=== PATIENT | male | born 1940 | race Caucasian/White ===

== ENCOUNTER → 2021-07-18 08:11 | Outpatient (CLI) | payer MEDICARE, SELFPAY ==
[2021-07-18 08:30] LABS: Basophils # 0.1 K/mm3 (0-0.2); Basophils % 0.9 % (0.1-2.0); Eosinophils # 0.2 K/mm3 (0.0-0.4); Eosinophils % 3.4 % (0.1-12.0); Hematocrit 30.5 % (42.0-52.0); Hemoglobin 8.9 g/dL (14.1-18.0); Lymphocytes # 1.3 K/mm3 (0.7-4.5); Lymphocytes % 19.5 % (10-50); Mean Corpuscular HGB Conc 29.3 g/dL (31.8-35.4); Mean Corpuscular Hemoglobin 30.8 pg (27.0-31.2); Mean Platelet Volume 11.5 fl (7.4-10.4); Monocytes # 0.3 K/mm3 (0.1-1.0); Monocytes % 3.9 % (1.7-9.3); Neutrophils # 4.7 K/mm3 (1.8-7.8); Neutrophils % 72.2 % (37.0-80.0); Platelet Count 401 K/mm3 (142-424); Red Blood Count 2.91 M/mm3 (4.60-6.20); Red Cell Distribution Width 20.7 % (11.5-17.5); White Blood Count 6.5 K/mm3 (4.8-10.8)
[2021-07-18 09:53] LABS: Alanine Aminotransferase 40 U/L (12-78); Albumin Level 3.9 g/dl (3.5-5.0); Albumin/Globulin Ratio 1.3 (1.1-1.8); Alkaline Phosphatase 96 U/L (38-126); Anion Gap 16.9 mEq/L (5-15); Aspartate Amino Transferase 32 U/L (17-59); Bilirubin,Total 0.4 mg/dl (0.2-1.3); Blood Urea Nitrogen 31 mg/dl (9-20); Calcium 9.2 mg/dl (8.4-10.2); Carbon Dioxide 24 mmol/L (22.0-30.0); Chloride 106 mmol/L (98-107); Estimated Glomerular Filt Rate 45 ml/min (>60); GFR (African American) 54 ML/MIN (>60); Globulin 2.9 g/dL (1.3-3.2); Glucose 126 mg/dl (74-100); Potassium 5.9 mmoL/L (3.5-5.1); Sodium 141 mmol/L (136-145); Total Protein,Serum 6.8 g/dl (6.3-8.2)
[2021-07-18 10:09] LABS: 25-OH Vitamin D, Total 37.4 ng/mL (30-100)
[2021-07-18 10:11] LABS: Free Thyroxine Index 3.7 ug/dL (5.93-13.13); T4 (Thyroxine) 9.3 ug/dl (5.53-11.0); Triiodothryronine (T3) Uptake 40 % (23.5-40.5)
[2021-07-18 10:25] LABS: Thyroid Stimulating Hormone 1.54 uIU/mL (0.465-4.68)
[2021-07-18 10:45] LABS: Vitamin B12 > 1000 pg/mL (239-931)
== END ==
PROVIDERS: Visit Provider Internal Medicine Adolescent Medicine
DX: E11.9 Type 2 diabetes mellitus without complications (principal); R63.4 Abnormal weight loss; Z79.84 Long term (current) use of oral hypoglycemic drugs
CPT/HCPCS: 80053; 82306; 82607; 83036; 84436; 84443; 84479; 85025

== ENCOUNTER → 2021-07-25 08:06 | Outpatient (CLI) | payer MEDICARE, SELFPAY ==
[2021-07-25 14:22] LABS: Basophils % 0.7 % (0.1-2.0); Eosinophils # 0.4 K/mm3 (0.0-0.4); Eosinophils % 6.5 % (0.1-12.0); Hematocrit 27.1 % (42.0-52.0); Hemoglobin 8.2 g/dL (14.1-18.0); Lymphocytes # 1.6 K/mm3 (0.7-4.5); Lymphocytes % 25.1 % (10-50); Mean Corpuscular HGB Conc 30.2 g/dL (31.8-35.4); Mean Corpuscular Hemoglobin 30.6 pg (27.0-31.2); Mean Corpuscular Volume 101.2 fl (80-94); Mean Platelet Volume 9.2 fl (7.4-10.4); Monocytes # 0.2 K/mm3 (0.1-1.0); Neutrophils % 64.7 % (37.0-80.0); Platelet Count 473 K/mm3 (142-424); Red Blood Count 2.68 M/mm3 (4.60-6.20); Red Cell Distribution Width 20.6 % (11.5-17.5); White Blood Count 6.2 K/mm3 (4.8-10.8)
[2021-07-25 14:23] LABS: Chloride 103 mmol/L (98-107)
[2021-07-25 14:24] LABS: Potassium 4.9 mmoL/L (3.5-5.1); Sodium 139 mmol/L (136-145)
[2021-07-25 14:27] LABS: Anion Gap 14.9 mEq/L (5-15); Blood Urea Nitrogen 15 mg/dl (9-20); Carbon Dioxide 26 mmol/L (22.0-30.0); Estimated Glomerular Filt Rate 81 ml/min (>60); GFR (African American) 98 ML/MIN (>60); Glucose 178 mg/dl (74-100)
[2021-07-27 08:07] LABS: Peripheral Smear Review Scanned Result
== END ==
PROVIDERS: Visit Provider Internal Medicine Adolescent Medicine
DX: N18.2 Chronic kidney disease, stage 2 (mild) (principal); D53.9 Nutritional anemia, unspecified
CPT/HCPCS: 36415; 80048; 82746; 85025

== ENCOUNTER → 2021-08-15 14:21 | Outpatient (CLI) | payer MEDICARE, SELFPAY ==
--- NOTE | 2021-08-15 14:24 | CT_ITS ---
PROCEDURE: CT CHEST WO CON Old chip CLINICAL INDICATION: WEIGHT LOSS, ABNORMAL COMPARISON: CT CT ANGIO CHEST from 08/15/[address] ABDOMEN PELVIS WO CON from 08/20/2019 TECHNIQUE: Axial images obtained with sagittal and coronal reformats. All CT scans at the facility use one or more dose reduction, viz: automated exposure control, ma/kV adjustment per patient size (including targeted exams where dose is matched to indication, i.e. head), or iterative reconstruction technique. FINDINGS: HEART AND MEDIASTINAL STRUCTURES: Coronary artery stents and or calcification noted. No mediastinal or hilar mass. There are few small mediastinal lymph nodes LUNGS AND PLEURAL SPACES: . Old granulomatous disease. Mild atelectatic or fibrotic changes in the lung bases. An 8 x 6 mm noncalcified nodule is present in the right lung base medially and posteriorly. It is difficult to due to determine if this was on the previous exam due to atelectatic change in that area. BONY STRUCTURES: No acute bony abnormalities apparent. UPPER ABDOMEN: Degenerative changes thoracic spine with endplate osteophytes at multiple levels. Old right 8th rib fracture. ADDITIONAL FINDINGS: No other significant abnormalities. IMPRESSION: 8 x 6 mm noncalcified nodular opacity right lung base posterior medially. This may only be due to an area of scarring or atelectatic change. Cannot exclude the possibility of developing nodule therefore, six-month follow-up is suggested Chronic changes in the lung bases. Dictated by: Pako Anaya MD 08/16/2021 11:57 Pako Anaya MD in [place] 08/16/2021 11:57
== END ==
PROVIDERS: PCP Internal Medicine Adolescent Medicine; Visit Provider Internal Medicine Adolescent Medicine
DX: R63.4 Abnormal weight loss (principal)
CPT/HCPCS: 71250

== ENCOUNTER 2022-05-02 11:59 | Emergency (ER) | payer MEDICARE, SELFPAY ==
[2022-05-02 13:00] VITALS: BP 114/54; PULSE 84; RESP 19; TEMP 36.6; O2SAT 97; BMI 25.8
--- NOTE | 2022-05-02 13:14 | HMH.EDUTC ---
[facility] – [place] Disposition Clinical Impression: COVID-19 Disposition: Home, Self-Care Condition on Discharge: Good Instructions: DI for COVID-19 (Suspected or Confirmed ) Additional Instructions: follow up as needed, return for worse Prescriptions: Nirmatrelvir/Ritonavir [Paxlovid 2X150 mg-100 mg (Eua)] 1 each PO BID 5 Days #30 tab Transmission Status: Received by [id number] Referrals: Santos Nassar MD [Primary Care Provider] - Medical Decision Making - Damion Inquiry Pt receiving controlled substance: No Damion was queried for this patient: No Vital Signs: 05/02/22 13:00 05/02/22 14:01 05/02/22 14:46 Temperature 97.9 F 98.7 F Temperature Source Oral Oral Pulse Rate 77 Pulse Rate [Radial] 84 74 Respiratory Rate 19 16 Blood Pressure 146/73 H Blood Pressure [Right Arm] 114/54 L 132/69 Blood Pressure Mean [Right Arm] 74 90 Blood Pressure Source Automatic Cuff Blood Pressure Source [Right Arm] Automatic Cuff Automatic Cuff Blood Pressure Position Sitting Blood Pressure Position [Right Arm] Sitting Sitting 02 Sat by Pulse Oximetry 97 95 96 Oxygen Delivery Method Room Air Room Air 05/02/22 16:26 Temperature 98.7 F Temperature Source Oral Pulse Rate 74 Pulse Rate [Radial] Respiratory Rate 17 Blood Pressure 132/71 Blood Pressure [Right Arm] Blood Pressure Mean [Right Arm] Blood Pressure Source Blood Pressure Source [Right Arm] Blood Pressure Position Blood Pressure Position [Right Arm] 02 Sat by Pulse Oximetry Oxygen Delivery Method Room Air - Lab Data Lab Results 05/02/22 13:00: SARS-CoV-2 (PCR) Detected A, Influenza A Untype (PCR) Not detected, Influenza Type B (PCR) Not detected Medical Decision Narrative: Patient was answering questions appropriately but then will look off at the wall and for several minutes then look back at staff and talk again Daughter states that this is not his normal behavior state that she hasnt felt well either and wanted him tested for COVID Called ED spoke with Patti No room available at this time will call when room available [facility] – [place] HPI - General Stated complaint: confusion, weakness Time Seen by Provider: 05/02/22 13:14 Mode of Arrival: Ambulatory Source of Information: Significant Other, Relative Description of Symptoms (Recalled from Triage Doc. by RN): COUGHING, NOT ATE FOR 2 DAYS, CONFUSED AND DISORIENTED HEENT Symptoms (Recalled from RN notes): No Resp Symptoms (Recalled from RN notes): Yes Skin Symptoms (Recalled from RN notes): No MS Symptoms (Recalled from RN notes): No Functional Status (Recalled from RN notes): N/A - History of Present Illness Provider Complaint: Patient family states that last night patient started acting confused and was pulling out drawers, fiddling with papers and not answering appropriately State that EMS came out and checked him out and he had a little fever but wouldnt go States that this morning he got up and was still not acting right and wouldnt eat and still not his normal self State sthat they asked if anything hurts and he just says he doesnt feel well Daughter states that she is concerned with stroke or something States that his left eye looks a little droopy and he isnt acting himself - Related Data Home Medications Medication Instructions Recorded Confirmed Levothyroxine Sodium 112 mcg PO DAILY 08/15/19 09/21/21 [Levothyroxine 112mcg (0.112mg) Tab] Metformin HCl [Metformin 1000mg 1,000 mg PO BID 08/15/19 09/21/21 Tablets] atorvastatin 40 mg tablet 40 mg PO DAILY 09/21/21 09/21/21 glipizide 5 mg tablet 5 mg PO DAILY 09/21/21 09/21/21 metoprolol tartrate 50 mg tablet 50 mg PO DAILY 09/21/21 09/21/21 Previous Rx's Medication Instructions Recorded Nirmatrelvir/Ritonavir [Paxlovid 1 each PO BID 5 Days #30 tab 05/02/22 2X150 mg-100 mg (Eua)] Allergies Allergy/AdvReac Type Severity Reaction Status Date / Time iodine Allergy Severe S-SWELLS-OR Verified
--- NOTE | 2022-05-02 13:15 | CT_ITS ---
FINAL REPORT TECHNIQUE: Thin section axial images were obtained from skull base to vertex without contrast. This study was performed with techniques to keep radiation doses as low as reasonably achievable (ALARA). Individualized dose reduction techniques using automated exposure control or adjustment of mA and/or kV according to the patient's size were employed. CLINICAL HISTORY: confusion, AMS COMPARISON: 08/16/2019 FINDINGS: There is global cerebral atrophy. There is no mass effect or midline shift. There is no extra-axial fluid collection. There is no intraparenchymal or intraventricular hemorrhage. There is no hydrocephalus. Periventricular low density is likely related to changes of chronic small vessel ischemia. The basilar cisterns are preserved. The posterior fossa is without acute abnormality. No air-fluid level is identified within the paranasal sinuses. The soft tissues are without acute abnormality. No acute osseous abnormality is identified. IMPRESSION: No acute intracranial abnormality. Atrophy and changes suggesting chronic small vessel ischemia. Reviewed, Interpreted and Dictated by Geovanna Barnard MD Transcribed by Ana Daniel Authenticated and . [facility]
--- NOTE | 2022-05-02 13:16 | PC.NURSE ---
notified radiology of CT head order, spoke with bart
--- NOTE | 2022-05-02 13:30 | PC.NURSE ---
PT TO CT AT THIS TIME
[2022-05-02 13:33] LABS: Influenza A, PCR Not Detected (NotDetected); Influenza B, PCR Not Detected (NotDetected)
--- NOTE | 2022-05-02 13:36 | PC.NURSE ---
pt went from [facility] to CT pt in room [address] at this time, pt ambulated to room
[2022-05-02 14:01] VITALS: BP 132/69; PULSE 74; RESP 16; TEMP 37.1; O2SAT 95; BMI 25.7
[2022-05-02 14:03] LABS: Coronavirus 19, PCR Detected (NotDetected)
--- NOTE | 2022-05-02 14:30 | HMH.EDGENADL ---
ED Disposition Clinical Impression: COVID-19 Disposition: Home, Self-Care Condition on Discharge: Good Instructions: DI for COVID-19 (Suspected or Confirmed ) Additional Instructions: follow up as needed, return for worse Prescriptions: Nirmatrelvir/Ritonavir [Paxlovid 2X150 mg-100 mg (Eua)] 1 each PO BID 5 Days #30 tab Transmission Status: Pending to [id number] Referrals: Santos Nassar MD [Primary Care Provider] - - Critical Care Critical Care Time: No Attestation: On 05/02/22, the high probability of a clinically significant, sudden or life threatening deterioration of the following system(s) required my full and direct attention, intervention and personal management. The time I documented below is in addition to time spent performing reported procedures but includes the following listed in this critical care notation. Medical Decision Making - Medical Records Medical records reviewed: Yes: I reviewed the patient's medical records. - Damion Inquiry Pt receiving controlled substance: No Vital Signs: 05/02/22 13:00 05/02/22 14:01 05/02/22 14:46 Temperature 97.9 F 98.7 F Temperature Source Oral Oral Pulse Rate 77 Pulse Rate [Radial] 84 74 Respiratory Rate 19 16 Blood Pressure 146/73 H Blood Pressure [Right Arm] 114/54 L 132/69 Blood Pressure Mean [Right Arm] 74 90 Blood Pressure Source Automatic Cuff Blood Pressure Source [Right Arm] Automatic Cuff Automatic Cuff Blood Pressure Position Sitting Blood Pressure Position [Right Arm] Sitting Sitting 02 Sat by Pulse Oximetry 97 95 96 Oxygen Delivery Method Room Air Room Air - Lab Data Lab Results 05/02/22 13:00: SARS-CoV-2 (PCR) Detected A, Influenza A Untype (PCR) Not detected, Influenza Type B (PCR) Not detected General Adult HPI - General Chief complaint: Weakness Stated complaint: confusion, weakness Time Seen by Provider: 05/02/22 14:30 Mode of Arrival: Ambulatory Limitations: No Limitations Description of Symptoms (Recalled from ER Triage Doc. by RN): Pt to Ed from [facility] for further eval r/t a period of confusion that occured last night at approx 1030pm. Pt also c/o fever, RIOJAS, cough - History of Present Illness HPI narrative: fever and confusion yesterday, says he feels better today, cov pos here Onset (ago): day(s) Consistency: now resolved Exacerbating factors: none Associated symptoms: denies other symptoms Treatments prior to arrival: none - Related Data Home Medications Medication Instructions Recorded Confirmed Levothyroxine Sodium 112 mcg PO DAILY 08/15/19 09/21/21 [Levothyroxine 112mcg (0.112mg) Tab] Metformin HCl [Metformin 1000mg 1,000 mg PO BID 08/15/19 09/21/21 Tablets] atorvastatin 40 mg tablet 40 mg PO DAILY 09/21/21 09/21/21 glipizide 5 mg tablet 5 mg PO DAILY 09/21/21 09/21/21 metoprolol tartrate 50 mg tablet 50 mg PO DAILY 09/21/21 09/21/21 Previous Rx's Medication Instructions Recorded Nirmatrelvir/Ritonavir [Paxlovid 1 each PO BID 5 Days #30 tab 05/02/22 2X150 mg-100 mg (Eua)] Allergies Allergy/AdvReac Type Severity Reaction Status Date / Time iodine Allergy Severe S-SWELLS-OR Verified 09/21/21 11:30 AL/THROAT shellfish derived Allergy Intermediate I-HIVES Verified 09/21/21 11:30 [From SHELLFISH (FOOD/DRUG)] From SHELLFISH (FOOD/DRUG) Allergy Intermediate I-HIVES Uncoded 09/23/17 15:42 [facility] History - Hepatitis A Screen Attestation statement:: This patient has been screened for Hepatitis A risk factors. Medical History: Reports:: Cancer, Diabetes Mellitus Type 2, Hyperlipidemia, Hypertension Other Medical History: Reports: Arthritis Other Surgeries: Yes: Cholecystectomy Fractures: Yes - Social History Smoking Status: Never smoker Alcohol Intake: current Alcohol Intake Frequency:: holidays/special occasions only Occupational Status: retired ROS Obtained: Yes All systems reviewed & no additional complaints Physical Exam
--- NOTE | 2022-05-02 14:39 | PC.NURSE ---
rounded on pt on this time. no needs voiced
[2022-05-02 14:46] VITALS: BP 146/73; PULSE 77; O2SAT 96
--- NOTE | 2022-05-02 14:55 | PC.NURSE ---
contacted radiology to check on status of CT reading, radiology states [facility] staff is in reading CT at this time.
--- NOTE | 2022-05-02 15:37 | PC.NURSE ---
calling radiology for CT reading eta
--- NOTE | 2022-05-02 15:48 | PC.NURSE ---
radiology sent down preliminary Ct reading
[2022-05-02 16:26] VITALS: BP 132/71; PULSE 74; RESP 17; TEMP 37.1; O2SAT 97
== END 2022-05-02 16:28 | disposition home or self-care (01) ==
LOC: UTC 12:01 → ER 13:36
PROVIDERS: Nurse Practitioner; Emergency Provider Emergency Medicine; PCP Internal Medicine Adolescent Medicine
DX: U07.1 COVID-19 (principal); Z79.84 Long term (current) use of oral hypoglycemic drugs; Z79.899 Other long term (current) drug therapy; Z88.8 Allergy status to other drugs, medicaments and biological substances; Z91.013 Allergy to seafood; E11.9 Type 2 diabetes mellitus without complications; E78.5 Hyperlipidemia, unspecified; I10 Essential (primary) hypertension; M19.90 Unspecified osteoarthritis, unspecified site; Z85.9 Personal history of malignant neoplasm, unspecified
CPT/HCPCS: 70450; 99284; C9803; U0003; U0005

== ENCOUNTER 2022-08-14 11:23 | Emergency (ER) | payer MEDICARE, SELFPAY ==
[2022-08-14 11:23] VITALS: BP 165/81; PULSE 79; RESP 18; TEMP 37; O2SAT 97; BMI 26.6
--- NOTE | 2022-08-14 11:51 | CT_ITS ---
FINAL REPORT TECHNIQUE: Axial CT images were performed through the head. Coronal reformatted images were submitted. This study was performed with techniques to keep radiation doses as low as reasonably achievable (ALARA). Individualized dose reduction techniques using automated exposure control or adjustment of mA and/or kV according to the patient's size were employed. CLINICAL HISTORY: AMS, Confusion COMPARISON: 05/02/2022 FINDINGS: There is moderate atrophy. There is proportional ventriculomegaly. There is abnormal decreased attenuation in the posterior left frontal cortex. There is no evidence of hemorrhage. There is no mass or edema identified. There is no abnormal extra-axial fluid seen. There is mild periosteal thickening in both maxillary sinuses and ethmoid air cells. IMPRESSION: No acute intracranial process. Chronic maxillary and ethmoid sinusitis. Small focus encephalomalacia in the posterior left frontal cortex appears chronic. Moderate atrophy. Reviewed, Interpreted and Dictated by Saravanan Oneill MD Transcribed by Lilibeth Oneal Authenticated and [facility]
--- NOTE | 2022-08-14 11:52 | XR_ITS ---
FINAL REPORT CLINICAL HISTORY: AMS, Confusion FINDINGS: A single view of the chest was obtained. The heart is normal in size. The mediastinum is unremarkable. There are chronic changes in the lung bases. There is no acute pulmonary abnormality. There is no pleural effusion. There is no pneumothorax. There is no acute osseous abnormality. IMPRESSION: No acute cardiopulmonary process. Reviewed, Interpreted and Dictated by Saravanan Oneill MD Transcribed by Lilibeth Oneal Authenticated and [facility]
--- NOTE | 2022-08-14 11:59 | PC.NURSE ---
notified RT of vbg order
--- NOTE | 2022-08-14 11:59 | PC.NURSE ---
urine obtained per in/out cath and sent to lab at this time.
[2022-08-14 12:00] VITALS: BP 174/82; PULSE 81; RESP 17; O2SAT 98
[2022-08-14 12:05] LABS: Influenza A, PCR Not Detected (NotDetected); Influenza B, PCR Not Detected (NotDetected)
[2022-08-14 12:05] LABS: VBG Base Excess 1.5 mmol/L (-2.4-2.3); VBG HCO3 27.4 mmol/L (23-30); VBG Oxygen Saturation 71.2 % (50-70); VBG PH 7.33 mmol/L (7.31-7.41); VBG PO2 41.9 mmol/L (28-40); VBG Total CO2 29.1 mmol/L (23-27)
[2022-08-14 12:06] VITALS: BMI 26.6
[2022-08-14 12:12] LABS: Basophils # 0.1 K/mm3 (0-0.2); Basophils % 0.7 % (0.1-2.0); Chloride 100 mmol/L (98-107); Eosinophils # 0.1 K/mm3 (0.0-0.4); Hematocrit 30.9 % (42.0-52.0); Hemoglobin 9.2 g/dL (14.1-18.0); Lymphocytes # 1.9 K/mm3 (0.7-4.5); Lymphocytes % 16.5 % (10-50); Mean Corpuscular HGB Conc 29.7 g/dL (31.8-35.4); Mean Corpuscular Hemoglobin 29.4 pg (27.0-31.2); Mean Corpuscular Volume 99.1 fl (80-94); Mean Platelet Volume 9.2 fl (7.4-10.4); Monocytes # 0.5 K/mm3 (0.1-1.0); Monocytes % 4.6 % (1.7-9.3); Neutrophils % 77.2 % (37.0-80.0); Platelet Count 444 K/mm3 (142-424); Red Blood Count 3.12 M/mm3 (4.60-6.20); Red Cell Distribution Width 24.1 % (11.5-17.5); Sodium 139 mmol/L (136-145); White Blood Count 11.7 K/mm3 (4.8-10.8)
[2022-08-14 12:13] LABS: Potassium 4.1 mmoL/L (3.5-5.1)
[2022-08-14 12:15] LABS: Alanine Aminotransferase 23 U/L (12-78); Albumin Level 4.3 g/dl (3.5-5.0); Albumin/Globulin Ratio 1.4 (1.1-1.8); Alkaline Phosphatase 92 U/L (38-126); Ammonia < 9 umol/L (9-30); Anion Gap 12.1 mEq/L (5-15); Aspartate Amino Transferase 29 U/L (17-59); Bilirubin,Total 1.3 mg/dl (0.2-1.3); Blood Urea Nitrogen 14 mg/dl (9-20); Calcium 9.7 mg/dl (8.4-10.2); Carbon Dioxide 31 mmol/L (22.0-30.0); Creatinine Clearance Estimated 63 mL/min (50-200); Estimated Glomerular Filt Rate 81 ml/min (>60); GFR (African American) 98 ML/MIN (>60); Globulin 3.1 g/dL (1.3-3.2); Glucose 188 mg/dl (74-100); Lactic Acid 1.1 mmol/L (0.7-2.1); Total Protein,Serum 7.4 g/dl (6.3-8.2)
[2022-08-14 12:15] LABS: Microscopic, Urine URINE MICROSCOPIC (MICROSCOPIC)
--- NOTE | 2022-08-14 12:18 | PC.NURSE ---
pt to CT via stretcher
--- NOTE | 2022-08-14 12:18 | HMH.EDGENADL ---
Discharge Plan Disposition Patient Disposition: Home, Self-Care Condition: Good Prescriptions Prescriptions: No Action metoprolol tartrate 50 mg tablet 50 mg PO DAILY atorvastatin 40 mg tablet 40 mg PO DAILY metformin 1,000 MG tablet 1,000 mg PO BID levothyroxine 112 MCG tablet 112 mcg PO DAILY glipizide 5 mg tablet 5 mg PO DAILY Label Comments: TAKE 1 2 (ONE HALF) TABLET BY MOUTH ONCE DAILY (TAKE WITH LARGEST MEAL) nirmatrelvir-ritonavir 1 EACH tablet 1 each PO BID 5 Days Qty: 30 0RF Referrals Follow up/Referrals: Santos Nassar MD [Primary Care Provider] - See instructions Activity Restrictions/Add. Instructions Additional Instructions/Restrictions: You were evaluated in the emergency department today. At this time, I recommend admission for further monitoring. You tested positive for COVID-19. Please follow-up with your primary care provider over the next 48 hours. Return to the emergency department for any new or worsening symptoms. Clinical Impressions Clinical Impression: Altered mental status, COVID-19 Instructions Patient Instructions: DI for Altered Mental Status, DI for COVID-19 (Suspected or Confirmed ) Discharge ED Provider: Delicia Ta General Adult HPI General Chief complaint: Altered Mental Status Stated complaint: Physician Referral, disoriented Time Seen by Provider: 08/14/22 11:30 Source of Information: Spouse History of Present Illness HPI narrative: This patient is an 81-year-old male with a history of hypothyroidism, type 2 diabetes, hypertension, and hyperlipidemia presented to the emergency department for evaluation of altered mental status. According to the patient's , this has been ongoing and worsening over the last several weeks, however last night things became acutely worse. She states that he was wandering around the house and doing things that did not make sense. Since then, he has not been able to answer questions appropriately. She denies any recent fevers, chills, cough, vomiting, changes in bowel movements, changes in urination, or other concerns. No recent trauma. Patient is confused but denies any complaints, concerns, or pain at this time. Related Data Home Medications Medication Instructions Recorded Confirmed levothyroxine 112 mcg tablet 112 mcg PO DAILY hypothyroid 08/15/19 09/21/21 metformin 1,000 mg tablet 1,000 mg PO BID Diabetes 08/15/19 09/21/21 atorvastatin 40 mg tablet 40 mg PO DAILY 09/21/21 09/21/21 glipizide 5 mg tablet 5 mg PO DAILY Diabetes 09/21/21 09/21/21 metoprolol tartrate 50 mg tablet 50 mg PO DAILY 09/21/21 09/21/21 Previous Rx's Medication Instructions Recorded nirmatrelvir 300 mg (150 mg 1 each PO BID 5 days #30 tabs 05/02/22 x2)-ritonavir 100 mg tablet,dose pack(EUA) Allergies Allergy/AdvReac Type Severity Reaction Status Date / Time iodine Allergy Severe S-SWELLS-OR Verified 09/21/21 11:30 AL/THROAT shellfish derived Allergy Intermediate I-HIVES Verified 09/21/21 11:30 [From SHELLFISH (FOOD/DRUG)] From SHELLFISH (FOOD/DRUG) Allergy Intermediate I-HIVES Uncoded 09/23/17 15:42 [facility] Social History Smoking Status: Never smoker alcohol intake: current current occupational status: retired Travel in the last 8 weeks: None ROS Obtained: Yes unobtainable due to mental status Physical Exam General General appearance: alert and in no apparent distress Head Head exam: atraumatic and normocephalic Eye Eye exam: Present normal appearance, PERRL and EOMI ENT ENT exam: Present normal exam Neck Neck exam: Present normal inspection, full ROM and trachea midline Chest Chest inspection: Present normal inspection Respiratory Respiratory exam: Present normal lung sounds bilaterally; Absent respiratory distress or wheezes Cardiovascular Cardiovascular exam: Present regular rate and normal rhythm A
[2022-08-14 12:19] LABS: Appearance,Urine CLEAR (Clear); Bilirubin,Urine Negative (Negative); Blood, Urine TRACE-I (Negative); Color,Urine YELLOW (Yellow); Glucose,Urine (UA) Negative (Negative); Ketones,Urine Negative (Negative); Leukocyte Esterase,Urine Negative (Negative); Nitrate,Urine Negative (Negative); Protein,Urine TRACE (Negative); Specific Gravity, Urine >= 1.030 (1.005-1.030)
[2022-08-14 12:29] LABS: WBC,Urine Occasional #/hpf (0-3)
[2022-08-14 12:30] VITALS: BP 164/83; PULSE 80; RESP 15; O2SAT 97
[2022-08-14 12:31] LABS: Troponin I < 0.01 ng/ml (0.00-0.034)
[2022-08-14 12:33] LABS: Coronavirus 19, PCR Detected (NotDetected)
[2022-08-14 12:54] LABS: Free T4 (Free Thyroxine) 1.01 ng/dl (0.78-2.19)
[2022-08-14 13:00] VITALS: BP 165/95; PULSE 81; RESP 20; O2SAT 99
[2022-08-14 13:01] LABS: Thyroid Stimulating Hormone 4.77 uIU/mL (0.465-4.68)
[2022-08-14 13:30] VITALS: BP 151/74; PULSE 82; RESP 16; O2SAT 96
--- NOTE | 2022-08-14 13:58 | PC.NURSE ---
LAST MENDEZ at
[2022-08-14 14:40] VITALS: BP 150/70; PULSE 80; RESP 17; TEMP 36.9; O2SAT 97
== END 2022-08-14 14:42 | disposition home or self-care (01) ==
PROVIDERS: Emergency Provider Emergency Medicine; PCP Internal Medicine Adolescent Medicine
DX: U07.1 COVID-19 (principal); R41.82 Altered mental status, unspecified; E03.9 Hypothyroidism, unspecified; E11.9 Type 2 diabetes mellitus without complications
CPT/HCPCS: 70450; 71045; 80053; 81001; 82140; 82803; 83605; 84439; 84443; 84484; 85025; 99284; C9803; U0003; U0005

== ENCOUNTER 2022-09-15 21:04 | Emergency (ER) | payer MEDICARE, SELFPAY ==
[2022-09-15 21:05] VITALS: BP 199/93; PULSE 72; RESP 16; TEMP 36.7; O2SAT 99; BMI 23.7
--- NOTE | 2022-09-15 21:10 | ECG_ITS ---
APPROVED REPORT Exam: Resting ECG HR:69 bpm ECG Measurements Heart Rate 69 AXES NV 184 P 61 QRSd 93 QRS 50 QT 408 T 91 QTc 427 Conclusion SINUS RHYTHM MODERATE ST DEPRESSION [0.05+ mV ST DEPRESSION] ABNORMAL ECG UNCONFIRMED REPORT Electronically signed by : Santos Nassar MD 09/16/2022 19:56:49
[2022-09-15 21:27] LABS: Coronavirus 19, PCR Not Detected (NotDetected); Influenza A, PCR Not Detected (NotDetected); Influenza B, PCR Not Detected (NotDetected)
[2022-09-15 21:30] VITALS: BP 199/93; PULSE 65; O2SAT 98
[2022-09-15 21:35] VITALS: BP 212/96; PULSE 74; RESP 16
--- NOTE | 2022-09-15 21:41 | XR_ITS ---
PROCEDURE INFORMATION: Exam: XR Chest Exam date and time: 09/15/2022 9:38 PM Age: 81 years old Clinical indication: Dyspnea; Additional info: Short of air TECHNIQUE: Imaging protocol: Radiologic exam of the chest. Views: 2 views. COMPARISON: CR XR CHEST PORTABLE 08/14/2022 12:36 PM FINDINGS: Lungs: No consolidation. Pleural spaces: No pneumothorax. Heart/Mediastinum: No cardiomegaly. Bones/joints: Degenerative changes of the shoulders. IMPRESSION: No acute findings.
--- NOTE | 2022-09-15 21:45 | PC.NURSE ---
Pt gone to RAD via wheelchair
--- NOTE | 2022-09-15 21:51 | PC.NURSE ---
Pt back from RAD via wheelchair
[2022-09-15 22:01] VITALS: BP 187/111; PULSE 66; O2SAT 98
--- NOTE | 2022-09-15 22:02 | PC.NURSE ---
Dr. Warner at
--- NOTE | 2022-09-15 22:05 | HMH.EDSOB ---
Discharge Plan Disposition Patient Disposition: Home, Self-Care Chief Complaint: Shortness of Breath/Dyspnea Prescriptions Prescriptions: No Action metoprolol tartrate 50 mg tablet 50 mg PO DAILY atorvastatin 40 mg tablet 40 mg PO DAILY metformin 1,000 MG tablet 1,000 mg PO BID levothyroxine 112 MCG tablet 112 mcg PO DAILY glipizide 5 mg tablet 5 mg PO DAILY Label Comments: TAKE 1 2 (ONE HALF) TABLET BY MOUTH ONCE DAILY (TAKE WITH LARGEST MEAL) gabapentin 400 mg Tablet 400 mg PO BID Referrals Follow up/Referrals: Santos Nassar MD [Primary Care Provider] - See instructions Regis Shaffer MD [Staff Physician] - See instructions Clinical Impressions Clinical Impression: CHF (congestive heart failure), Elevated troponin, Abnormal abdominal CT scan Instructions Patient Instructions: DI for Shortness of Breath, Heart Failure Discharge ED Provider: Abhinav Warner Resp/SOB HPI General Chief Complaint: Shortness of Breath/Dyspnea Stated Complaint: abd pain, diff breathing, weak Time Seen by Provider: 09/15/22 22:05 Mode of Arrival: Ambulatory Source of Information: Patient, Significant Other and Medical Record Limitations: No Limitations Description of Symptoms (Recalled from ER Triage Doc. by RN): pt arrives today c/o shortness of AIR. sudden onset aprox 1930 tonight the pt states he doesnt know whats wrong he just feels. then he will repeate that the states that he feels short of breath. History of Present Illness pt presents with sob which started today w/o fever or chills and no resp illness - no chest pain - has hx of anemia Complaint: shortness of breath Onset (ago): hour(s) Severity: moderate Consistency/Duration: intermittent Known history of: diabetes and other (thyroid dis ) Associated symptoms: denies other symptoms Treatment prior to arrival: none Related Data Home oxygen amount: none Home Medications Medication Instructions Recorded Confirmed levothyroxine 112 mcg tablet 112 mcg PO DAILY hypothyroid 08/15/19 09/16/22 metformin 1,000 mg tablet 1,000 mg PO BID Diabetes 08/15/19 09/16/22 atorvastatin 40 mg tablet 40 mg PO DAILY Hypertension 09/21/21 09/16/22 glipizide 5 mg tablet 5 mg PO DAILY Diabetes 09/21/21 09/16/22 metoprolol tartrate 50 mg tablet 50 mg PO DAILY Hypertension 09/21/21 09/16/22 gabapentin 400 mg tablet 400 mg PO BID Pain 09/16/22 09/16/22 Allergies Allergy/AdvReac Type Severity Reaction Status Date / Time iodine Allergy Severe S-SWELLS-OR Verified 09/21/21 11:30 AL/THROAT shellfish derived Allergy Intermediate I-HIVES Verified 09/21/21 11:30 [From SHELLFISH (FOOD/DRUG)] From SHELLFISH (FOOD/DRUG) Allergy Intermediate I-HIVES Uncoded 09/23/17 15:42 Well's Criteria PE Score Clinical signs/symptoms of DVT: No PE is #1 diagnosis or equally likely: Yes Heart rate is > 100: No Immobile at least 3 days, or surgery in past 4 wks: No Previously, obj. diagnosed PE or DVT: No Hemoptysis: No Malignancy w/Rx within 6mo, or palliative: No PE Score: 3 [facility] Disclaimer: The information contained in this section may have been updated after the patient was seen, as this information can be updated by other users. Social History Smoking Status: Former smoker alcohol intake: current current occupational status: retired Travel in the last 8 weeks: None ROS Obtained: Yes All systems reviewed & no additional complaints except as documented Physical Exam General General appearance: alert Head Head exam: normocephalic Eye Eye exam: Present PERRL and EOMI ENT ENT exam: Present mucous membranes moist Neck Neck exam: Absent trachea midline Respiratory Respiratory exam: Present other (bibasilar rales ); Absent respiratory distress Cardiovascular Cardiovascular exam: Present regular rate, systolic murmur and +S4 Abdominal Exam Abdominal exam: Present soft
--- NOTE | 2022-09-15 22:11 | CT_ITS ---
PROCEDURE INFORMATION: Exam: CT Abdomen And Pelvis With Contrast Exam date and time: 09/15/2022 11:48 PM Age: 81 years old Clinical indication: Abdominal tenderness; Additional info: Pain TECHNIQUE: Imaging protocol: Computed tomography of the abdomen and pelvis with contrast. 3D rendering (Not supervised by radiologist): MIP and/or 3D reconstructed images were created by the technologist. Radiation optimization: All CT scans at this facility use at least one of these dose optimization techniques: automated exposure control; mA and/or kV adjustment per patient size (includes targeted exams where dose is matched to clinical indication); or iterative reconstruction. COMPARISON: CT ABDOMEN PELVIS WO CON 08/20/2019 11:21 AM FINDINGS: Diaphragm: A small hiatal hernia is present. Liver: Normal. No mass. Gallbladder and bile ducts: The gallbladder is absent. There is no biliary ductal dilation. Pancreas: Normal. No ductal dilation. Spleen: Normal. No splenomegaly. Adrenal glands: Normal. No mass. Kidneys and ureters: There is a 16 x 24 mm cortical cyst posterior right kidney. There is a 46 x 55 mm multi septated cyst of the lower cortex left kidney with calcifications of the septations. A similar multi septated cyst was noted on the prior study measuring 3.9 x 4.7 cm at that time. Bilateral intrarenal calculi are present the largest on the left measuring 5 x 7 mm. There is no hydronephrosis. Stomach and bowel: Left colon diverticulosis is present without inflammation. There is focal narrowing of the mid transverse colon noted best on axial series 3 images 388 through 402. Additionally there is subtle stranding of the pericolonic fat in this region. There is no obstruction. Significant fecal content is present throughout the colon. Appendix: No evidence of appendicitis. Intraperitoneal space: Unremarkable. No free air. No significant fluid collection. Vasculature: There is significant calcific atherosclerotic disease. There is no abdominal aortic aneurysm. Lymph nodes: Unremarkable. No enlarged lymph nodes. Urinary bladder: Unremarkable as visualized. Reproductive: Unremarkable as visualized. Bones/joints: There is an old L2 compression deformity. Soft tissues: Unremarkable. IMPRESSION: 1. Focal narrowing of the mid transverse colon with subtle stranding of the pericolonic fat. The finding could represent focal colitis however, neoplasm is considered and further evaluation with colonoscopy is recommended. 2. Other findings as detailed. COMMENTS: Consistent with the [employer]'s Incidental Findings Committee white paper (J Am Arash Radiol 2018): Any incidental renal lesion less than 1 cm or classified as too small to characterize, or any incidental cystic renal lesion characterized as simple-appearing, is likely benign. No follow-up imaging is recommended for these lesions per consensus recommendations based on imaging criteria.
--- NOTE | 2022-09-15 22:11 | CT_ITS ---
PROCEDURE INFORMATION: Exam: CTA Chest With Contrast Exam date and time: 09/15/2022 11:48 PM Age: 81 years old Clinical indication: Dyspnea; Additional info: SOA TECHNIQUE: Imaging protocol: Computed tomographic angiography of the chest with contrast. 3D rendering (Not supervised by radiologist): MIP and/or 3D reconstructed images were created by the technologist. Radiation optimization: All CT scans at this facility use at least one of these dose optimization techniques: automated exposure control; mA and/or kV adjustment per patient size (includes targeted exams where dose is matched to clinical indication); or iterative reconstruction. Contrast material: ISOVUE; Contrast volume: 100 ml; Contrast route: INTRAVENOUS (IV); COMPARISON: CT ANGIO CHEST 08/15/2019 7:47 PM FINDINGS: Pulmonary arteries: Normal. No pulmonary emboli. Aorta: There is moderate calcific disease of the transverse arch and descending aorta. There is no aneurysm. No dissection. Lungs: There are mild atelectatic changes at the lung bases and within the lingula. Right lower lobe calcified granuloma is noted. There is a 6 mm pleural-based nodule within the left upper lobe series 5, image 63. Pleural spaces: Unremarkable. No pneumothorax. No pleural effusion. Heart: Unremarkable. No cardiomegaly. No pericardial effusion. Lymph nodes: There are calcified right hilar mediastinal lymph nodes. Bones/joints: Unremarkable. No acute fracture. Soft tissues: Unremarkable. IMPRESSION: 1. There is no pulmonary embolus. There is no acute aortic finding. 2. Bibasilar atelectasis. 3. 6 mm left upper lobe nodule. For patients at low risk (minimal or absent history of smoking and of other known risk factors), no routine follow-up is indicated. For patients at high risk (history of smoking or of other known risk factors), consider optional CT Chest at 12 months. (Reference: Evonne) REFERENCES: Devantehoannie H, et al. Guidelines for Management of Incidental Pulmonary Nodules Detected on CT Images: From the Fleischner Society 2017. Radiology. 2017;284(1):228-243.
--- NOTE | 2022-09-15 22:12 | PC.NURSE ---
RT at to obtain ABG
[2022-09-15 22:16] LABS: Microscopic, Urine URINE MICROSCOPIC (MICROSCOPIC)
[2022-09-15 22:18] LABS: Appearance,Urine CLEAR (Clear); Bilirubin,Urine Negative (Negative); Blood, Urine Negative (Negative); Color,Urine STRAW (Yellow); Glucose,Urine (UA) Negative (Negative); Ketones,Urine Negative (Negative); Leukocyte Esterase,Urine Negative (Negative); Nitrate,Urine Negative (Negative); PH,Urine 6.5 (5.0-8.5); Protein,Urine Negative (Negative); Specific Gravity, Urine 1.015 (1.005-1.030); Urobilinogen,Urine 0.2 EU/dl (0.2)
[2022-09-15 22:24] LABS: Alanine Aminotransferase 26 U/L (12-78); Albumin Level 4.4 g/dl (3.5-5.0); Albumin/Globulin Ratio 1.5 (1.1-1.8); Alkaline Phosphatase 78 U/L (38-126); Amylase 77 U/L (30-110); Anion Gap 11.1 mEq/L (5-15); Aspartate Amino Transferase 30 U/L (17-59); Bilirubin,Total 0.7 mg/dl (0.2-1.3); Blood Urea Nitrogen 24 mg/dl (9-20); Calcium 9.6 mg/dl (8.4-10.2); Carbon Dioxide 28 mmol/L (22.0-30.0); Chloride 103 mmol/L (98-107); Creatinine Clearance Estimated 51 mL/min (50-200); Estimated Glomerular Filt Rate 58 ml/min (>60); GFR (African American) 70 ML/MIN (>60); Glucose 149 mg/dl (74-100); Lipase 61 U/L (23-300); Potassium 4.1 mmoL/L (3.5-5.1); Sodium 138 mmol/L (136-145); Total Protein,Serum 7.4 g/dl (6.3-8.2)
[2022-09-15 22:25] LABS: Basophils % 0.9 % (0.1-2.0); Eosinophils # 0.1 K/mm3 (0.0-0.4); Eosinophils % 1.5 % (0.1-12.0); Hematocrit 30.7 % (42.0-52.0); Hemoglobin 9.4 g/dL (14.1-18.0); Lymphocytes # 1.4 K/mm3 (0.7-4.5); Lymphocytes % 31.1 % (10-50); Mean Corpuscular HGB Conc 30.8 g/dL (31.8-35.4); Mean Corpuscular Hemoglobin 29.9 pg (27.0-31.2); Mean Platelet Volume 9.5 fl (7.4-10.4); Monocytes # 0.3 K/mm3 (0.1-1.0); Monocytes % 6.4 % (1.7-9.3); Neutrophils # 2.7 K/mm3 (1.8-7.8); Platelet Count 291 K/mm3 (142-424); Red Blood Count 3.16 M/mm3 (4.60-6.20); Red Cell Distribution Width 21.9 % (11.5-17.5); White Blood Count 4.5 K/mm3 (4.8-10.8)
[2022-09-15 22:25] LABS: ABG Base Excess 2.9 mmol/L (-2.4-2.3); ABG Oxygen Saturation 97 % (90-100); ABG PO2 90.5 mmhg (80-100); ABG TCO2 27.1 mmhg (23-27)
[2022-09-15 22:27] LABS: Oxygen ROOM AIR %; Source L BRACHIAL
[2022-09-15 22:30] VITALS: BP 177/84; PULSE 62; O2SAT 96
[2022-09-15 22:32] LABS: Bacteria,Urine Trace /lpf; Squamous Epithelial Cell,Urine Occasional #/hpf (0-5)
[2022-09-15 22:36] LABS: NT Pro Brain Natriuretic Pep. 1260 pg/mL (0-450)
[2022-09-15 22:38] LABS: Troponin I < 0.01 ng/ml (0.00-0.034)
[2022-09-15 22:41] LABS: T4 (Thyroxine) 8.5 ug/dl (5.53-11.0)
[2022-09-15 23:32] VITALS: BP 161/83; PULSE 66; O2SAT 98
--- NOTE | 2022-09-15 23:40 | PC.NURSE ---
pt expressed concern about iodine allergy and a contrast ct. pt has had prior studys with no reaction
--- NOTE | 2022-09-15 23:41 | PC.NURSE ---
Pt gone to RAD via stretcher
--- NOTE | 2022-09-15 23:56 | PC.NURSE ---
Pt back to room via stretcher
--- NOTE | 2022-09-16 00:53 | PC.NURSE ---
second trop drawn and sent to lab
[2022-09-16 01:17] LABS: Troponin I 0.08 ng/ml (0.00-0.034)
[2022-09-16 02:08] VITALS: BP 156/84; PULSE 98; RESP 16; TEMP 36.6; O2SAT 98
== END 2022-09-16 02:08 | disposition home or self-care (01) ==
PROVIDERS: Emergency Provider Emergency Medicine; PCP Internal Medicine Adolescent Medicine
DX: R06.02 Shortness of breath (principal); R10.9 Unspecified abdominal pain; R53.1 Weakness; R94.31 Abnormal electrocardiogram [ECG] [EKG]; E87.3 Alkalosis; R79.89 Other specified abnormal findings of blood chemistry; Z20.822 Contact with and (suspected) exposure to COVID-19; I50.9 Heart failure, unspecified; I25.10 Atherosclerotic heart disease of native coronary artery without angina pectoris; E07.9 Disorder of thyroid, unspecified; E11.9 Type 2 diabetes mellitus without complications; F03.90 Unspecified dementia, unspecified severity, without behavioral disturbance, psychotic disturbance, mood disturbance, and anxiety; F17.200 Nicotine dependence, unspecified, uncomplicated; Z79.02 Long term (current) use of antithrombotics/antiplatelets; Z79.82 Long term (current) use of aspirin; Z79.84 Long term (current) use of oral hypoglycemic drugs; Z79.899 Other long term (current) drug therapy; Z88.8 Allergy status to other drugs, medicaments and biological substances; Z91.013 Allergy to seafood; Z95.5 Presence of coronary angioplasty implant and graft
CPT/HCPCS: 71046; 71275; 74176; 80053; 81001; 82150; 82803; 83690; 83880; 84436; 84443; 84484; 85025; 93005; 99285; C9803; U0003; U0005

== ENCOUNTER → 2022-09-23 10:02 | Outpatient (CLI) | payer MEDICARE, SELFPAY ==
--- NOTE | 2022-09-23 10:03 | CA_ITS ---
APPROVED REPORT EXAM: Comprehensive 2D, Doppler, and color-flow Echocardiogram Credit Reference Clerk: Casandra Candelario, RCS, RVS Ht: 5 ft 11 in Wt: 166lbs BSA: 1.95 BP: 146/73 mmHg Indications: ABN EKG, CHF, Ex-smoker, SOB 2D Dimensions Aortic Root 3.55 cm LA Volume 61.60 mL Left Atrium 3.67 cm LA Volume Index 31.391012 mL/m2 (M/F) 16-34 LVOT 2.15 cm (M/F) 1.5-2.5 M-Mode Dimensions RVDd 3.37 cm (0.9-2.6) LA Diam 3.73 cm (1.9-4.0) LVDd 5.30 cm (3.5-5.7) Ao Diam 3.67 cm (2.0-3.7) LVDs 3.72 cm (3.5-5.7) IVSd 0.93 cm (0.6-1.1) PWd 1.00 cm (0.6-1.1) EF (Teich) 56.50% EPSs 0.39 cm FS 29.80% EDV (Teich) 135.30 mL TAPSE 2.10 (<1.7) ESV (Teich) 58.90 mL LV Diastology E Decel Time 377.00 (160-240 msec) E/A Ratio 0.80 MED E' 6.50 (< 7 cm/sec) MED A' 8.90 cm/s E'/MED E' Ratio 7.57 (>14) LAT E' 6.80 (<10 cm/sec) LAT A' 10.50 cm/s E/LAT E' Ratio 7.24 (>14) Aortic Valve LVOT Max 79.00 (70-110 cm/s) LVOT VTI 20.61 cm AoV Peak Chevy. 91.00 (50-130 cm/s) AI PHT 617.00 ms AO Peak GR. 3.30 mmHg AO Mean GR. 1.70 (<5 mmHg) AO VTI 20.87 (18-25 cm) EDILMA (VTI) 3.59 (2.5-4.5 cm2) Mitral Valve MV E Max Chevy. 49.00 (40-130 cm/s) MV A Velocity 61.00 (40-130 cm/s) E/A Ratio 0.80 MV Decel. Time 377.00 (160-240 ms) MV Mean Gr. 0.80 (<2mmHg) MV PHT 110.00 ms Pulmonary Valve PV Peak Velocity 56.00 (50-150 cm/s) OR End VMAX 165.00 cm/s Tricuspid Valve TR P. Velocity 227.00 cm/s RAP Estimate 10.00 mmHg RVSP 30.50 mmHg Left Ventricle Left atrium is mildly enlarged left ventricle is normal size mild concentric left ventricular hypertrophy, estimated ejection fraction 50% with no regional wall motion abnormality, grade 1 diastolic dysfunction seen without tissue Doppler evidence of raise left atrial pressure. Right Ventricle Right atrium and right ventricle are mildly enlarged with normal contractility. Aortic Valve Aortic valve is thickened and calcified without aortic stenosis, there is mild aortic insufficiency. Mitral Valve Mitral valve is minimally thickened, there is mild mitral regurgitation. Tricuspid Valve Tricuspid valve grossly normal, there is mild tricuspid regurgitation, tricuspid regurgitation jet velocity is inadequate for calculation of the right ventricular systolic pressure. Pulmonic Valve Pulmonic valve is poorly visualized. Great Vessels Aortic root is normal size. Inferior vena cava is poorly visualized. Pericardium No significant pericardial effusion noted. Conclusion 1. Mild biatrial enlargement, normal left ventricular size, mild concentric left ventricular hypertrophy, estimated ejection fraction 50% with no regional wall motion abnormality, grade 1 diastolic dysfunction seen without tissue Doppler evidence of raise left atrial pressure. 2. Mildly enlarged right ventricle with normal contractility. 3. Mild mitral, aortic and tricuspid regurgitation. 4. No significant pericardial effusion noted. Electronically signed by : Giles Bernal MD 09/23/2022 22:02:57
== END ==
PROVIDERS: PCP Internal Medicine Adolescent Medicine; Visit Provider Physician Assistant
DX: I50.9 Heart failure, unspecified (principal); R06.00 Dyspnea, unspecified; R41.82 Altered mental status, unspecified; R77.8 Other specified abnormalities of plasma proteins; R93.5 Abnormal findings on diagnostic imaging of other abdominal regions, including retroperitoneum; R94.31 Abnormal electrocardiogram [ECG] [EKG]
CPT/HCPCS: 93306

== ENCOUNTER 2022-09-24 15:12 | Inpatient (IN) | payer MEDICARE, SELFPAY ==
[2022-09-24] VITALS (37 sets, daily range): BP systolic 43–188; BP diastolic 19–99; PULSE 64–94; RESP 12–23; TEMP 36.3–37; O2SAT 94–100; BMI 23.1
--- NOTE | 2022-09-24 | CA_ITS ---
APPROVED REPORT EXAM: Comprehensive 2D, Doppler, and color-flow Echocardiogram [employer]: Jolene Galindo RT(R) Ht: 5 ft 11 in Wt: 166lbs BSA: 1.95 BP: 74/52 mmHg Indications: hypotension post cath, SOA, heart cath today, assess for pericardial effusion M-Mode Dimensions RVDd 2.90 cm (0.9-2.6) LVDd 3.86 cm (3.5-5.7) LVDs 2.95 cm (3.5-5.7) IVSd 1.05 cm (0.6-1.1) PWd 1.10 cm (0.6-1.1) EF (Teich) 47.70% FS 23.60% EDV (Teich) 64.30 mL ESV (Teich) 33.60 mL Conclusion 1. Limited echocardiogram was obtained to evaluate for left ventricular systolic function and pericardial effusion. 2. Left ventricle is normal size overall preserved left ventricular systolic function. Estimated ejection fraction 55% with no regional wall motion abnormality. 3. There is large size circumferential pericardial effusion noted with intermittent right ventricular diastolic collapse, inferior vena cava is dilated, and this is raising the concern for presence of pericardial effusion with reduced intrapericardial pressure and tamponade physiology. Electronically signed by : Giles Bernal MD 09/24/2022 18:02:31
--- NOTE | 2022-09-24 07:37 | IR_ITS ---
APPROVED REPORT Patient Location: Outpatient PROCEDURES Left heart catheterization Left ventriculogram Selective coronary angiogram Intravascular ultrasound to the distal left main artery and LAD Intravascular lithotripsy to the proximal and mid LAD Drug-eluting stent deployment to the proximal LAD Intravascular lithotripsy to the proximal right coronary artery and mid dominant right coronary Drug-eluting stent deployment to the proximal and mid dominant right coronary artery in a contiguous manner INDICATION Coronary artery disease, Severe in-stent restenosis, Extensive calcific disease in the LAD, Indeterminate left main coronary artery disease, To determine mechanism of in-stent restenosis within the LAD, Extensive calcific disease in the right coronary artery, Recent acute non-ST elevation myocardial infarction with recurrent angina pectoris Informed consent was obtained prior to the procedure. COMPLICATIONS None Estimated Blood Loss: Less than 10 mls TECHNIQUE One percent lidocaine used to anesthetize the right anterior aspect of the wrist. The right radial artery was accessed via the Seldinger technique. A 6 Afghan sheath was placed in the right radial artery. 2.5 mg of verapamil, 800 mcg of nitroglycerin, 1mg Lidocaine and 5000 U Heparin were given through the arterial sheath. The papa catheter was also used to perform left heart catheterization, left ventriculogram and selective coronary angiogram. At the end the diagnostic angiogram therapeutic heparin was administered giving a therapeutic ACT and the guide catheter was placed in the left main artery followed by a Runthrough wire being placed distally in the LAD. Intravascular ultrasound probe was advanced which demonstrated an MLA of 2.1 mm???. There was extensive and severe calcification throughout the proximal LAD with critical disease. There was a 40% stenosis in the distal left main artery which had an MLA greater than 5.5 mm???. Following this a 3.5 x 12 mm lithotripsy shockwave balloon was advanced and 8 separate lithotripsy pulsations were delivered at 10 pulse intervals. Following this a 3 mm x 12 mm resolute [place] stent was deployed immediately proximal to the first diagonal artery at 20 ana. An additional 3.5 x 18 mm resolute Lauro stent was placed proximal to this and deployed at 20 ana. Following stenting intravascular ultrasound probe was advanced which demonstrated a severe stenosis still persisted with under deployment of the stents. A 3.5 x 12 mm noncompliant balloon was then deployed at 24 ana in the first 3 mm stent throughout its entire course and then brought back and deployed at 24 ana throughout the proximal LAD. At the end of the procedure there was wide flow down the LAD with WAYNE-3 flow being present before and after the procedure. Following this the guide catheter was placed in the right coronary artery and the run-through wire was placed distally. Primary stenting could not be performed therefore 3 mm x 12 mm balloon was used to predilate the stenosis. A 4 mm x 38 mm resolute [place] stent was placed ostially and proximally in the right coronary artery. There was significant resistance getting the stent through the proximal portion of the right coronary artery suggesting a much more severe proximal stenosis. The stent was deployed at 20 ana. An additional 4 mm x 26 mm resolute [place] stent was then placed distal to the first stent and deployed at 20 ana. At this point a 4 mm x 12 mm shockwave lithotripsy balloon was advanced to an area which was not reduced and heavily calcified. 4 pulsations were delivered at 10 pulse intervals. The balloon was brought back and deployed in the ostium also for an additional 4 pulsations at 10 pu
[2022-09-24 08:54] LABS: Basophils % 0.3 % (0.1-2.0); Eosinophils % 0.2 % (0.1-12.0); Hematocrit 29.5 % (42.0-52.0); Hemoglobin 9.4 g/dL (14.1-18.0); Lymphocytes # 0.7 K/mm3 (0.7-4.5); Lymphocytes % 15.4 % (10-50); Mean Corpuscular HGB Conc 31.9 g/dL (31.8-35.4); Mean Corpuscular Hemoglobin 30.3 pg (27.0-31.2); Mean Corpuscular Volume 95.1 fl (80-94); Mean Platelet Volume 10.4 fl (7.4-10.4); Monocytes # 0.1 K/mm3 (0.1-1.0); Monocytes % 1.6 % (1.7-9.3); Neutrophils # 3.6 K/mm3 (1.8-7.8); Neutrophils % 82.5 % (37.0-80.0); Platelet Count 313 K/mm3 (142-424); Red Cell Distribution Width 20.8 % (11.5-17.5); White Blood Count 4.3 K/mm3 (4.8-10.8)
[2022-09-24 09:02] LABS: Anion Gap 13.9 mEq/L (5-15); Blood Urea Nitrogen 23 mg/dl (9-20); Calcium 9.6 mg/dl (8.4-10.2); Carbon Dioxide 25 mmol/L (22.0-30.0); Chloride 104 mmol/L (98-107); Creatinine Clearance Estimated 50 mL/min (50-200); Estimated Glomerular Filt Rate 58 ml/min (>60); GFR (African American) 70 ML/MIN (>60); Glucose 295 mg/dl (74-100); Potassium 4.9 mmoL/L (3.5-5.1); Sodium 138 mmol/L (136-145)
[2022-09-24 14:04] LABS: CATHL Activated Clotting Time 234 SEC (74-125)
[2022-09-24 14:05] LABS: CATHL Activated Clotting Time 387 SEC (74-125)
--- NOTE | 2022-09-24 14:17 | HMH.PHACL ---
[facility] Statistical Reporting Analyst Discharge Med Agricultural Science Professor: Tory Morales has received discharge medication counseling on the following medications: MD STARTING ASPIRIN 81 MG CHEWABLE DAILY AND BRILINTA 90 MG BID. PATIENT CURRENTLY TAKING ATORVASTATIN 40 MG DAILY AND METOPROLOL TARTRATE 50 MG BID. MD NOT STARTING SHARATH/ARB AT THIS TIME.
--- NOTE | 2022-09-24 14:50 | SUR.PHASEII ---
Pt began to feel faint and have soa, notified stated to switch brilinta to plavix, and give fluids and continue to monitor.
[2022-09-24 14:54] LABS: POC Glucose,Bedside 446 (70-110)
--- NOTE | 2022-09-24 15:20 | SUR.PHASEII ---
Notified MD of pt hypotension, stated to start lin stat, called pharmacy
--- NOTE | 2022-09-24 15:34 | SUR.PHASEII ---
, Magdaleno BAR, and echo at bedside to perform pericardiocentesis
--- NOTE | 2022-09-24 15:49 | CA_ITS ---
APPROVED REPORT EXAM: Comprehensive 2D, Doppler, and color-flow Echocardiogram Oral And Maxillofacial Pathologist: Jolene Galindo RT(R) Ht: 5 ft 11 in Wt: 166lbs BSA: 1.95 BP: 121/71 mmHg Indications: images obtained during pericardiocentesis. Conclusion 1. Limited echocardiogram was performed during pericardiocentesis. 2. Successful pericardiocentesis done to remove pericardial effusion, at the end of the procedure there is trivial pericardial effusion, there is no right ventricular collapse, normal left ventricular systolic function. Electronically signed by : Giles Bernal MD 09/24/2022 18:03:57
--- NOTE | 2022-09-24 15:58 | SUR.PHASEII ---
Notified MD larry bp, stated to d/c lin
--- NOTE | 2022-09-24 16:00 | SUR.PHASEII ---
1533: step up for pericardiocentesis, pt prepped and draped 1533: time out 1534: sedation per Gadiel 1536: access and wire inserted 1538: catheter inserted per dr marshall, echo guided 1538:300cc of blood aspirated 1540: drain bag attached to tube, blood noted in bag 1545: Elizabeth RT sutured drain tube in place with 2.0 silk
--- NOTE | 2022-09-24 16:06 | EXP.ANES.CKL ---
[facility] Disclaimer: The information contained in this section may have been updated after the patient was seen, as this information can be updated by other users. Medical History Abnormal electrocardiogram [ECG] [EKG] Diabetes mellitus Dyspnea Family History (Updated 09/24/22 @ 09:45 by Mary Cotton RN) Other No significant family history Social History (Updated 09/24/22 @ 09:46 by Mary Cotton RN) Smoking Status: Former smoker alcohol intake: current substance use type: denies use current occupational status: retired Travel in the last 8 weeks: Inside the [facility] Anesthesia Checklist Patient Identification Patient Identification: Arm Band Structural Data Admitted From: Home Planned Operative Procedure/s: Pericardiocentesis Consent for Planned Operative Procedure(s) Verified: Yes Verified Documents: Surgical Consent and History and Physical NPO Status Verified Time NPO: 00:00 Additional verifications Anesthesia Reactions: No Neurological Assessment Level of Consciousness: Drowsy and Lethargic Anesthesia Plan Anesthesia Risk discussed: Yes Anesthesia Plan: Patient unable to respond/answer ASA Class: IV (E) Anesthesia Type: MAC Preoperative Comments Pre-Operative Comments: Emergent Pericardiocentesis performed by Dr. Shaffer at bedside in electrical laboratory technician
--- NOTE | 2022-09-24 16:10 | IR_ITS ---
APPROVED REPORT Patient Location: Emergent Regional Service Manager: SIVAKUMAR Gonzalez RT (R) PROCEDURES Pericardial centesis with placement of pericardial pigtail catheter into the pericardial sac INDICATION Pericardial effusion, Cardiac tamponade Informed consent was obtained prior to the procedure. TECHNIQUE Patient's abdomen and thorax was sterilely prepped and anesthesia provided propofol for conscious sedation. A large 18-gauge needle was placed in the subxiphoid process toward the left side of the chest and then inserted with negative pressure/aspiration on a syringe. Once in the pericardial space a wire was advanced into the pericardial space and the tract was dilated with a 6 Monegasque dilating sheath. Following this a 6 Monegasque pigtail catheter was advanced into the pericardial space. 300 cc of blood was removed from the pericardial space and ultrasound revealed complete resolution of the pericardial effusion. Patient's blood pressure immediately normalized. At the end of the procedure the pericardial pigtail catheter was sewn into place sterilely prepped and covered with Tegaderm patch. Patient was transferred to the medical floor for admission. IMPRESSION Successful emergent pericardiocentesis removing 300 cc of blood from the pericardial space with successful placement of pericardial pigtail catheter PLAN 1. Type and cross 2 units of blood 2. Keep pigtail catheter in place overnight 3. Repeat echocardiogram in the morning 4. If no pericardial effusion tomorrow morning the pigtail catheter will be removed and then patient will be kept an additional 24 hours for anticipated repeat echocardiogram morning to make sure there is no further accumulation. 5. Supportive care 6. Continue dual antiplatelet therapy for recent drug-eluting stents Electronically signed by : Regis Shaffer MD 09/24/2022 16:27:05
[2022-09-24 16:25] LABS: Basophils % 0.1 % (0.1-2.0); Eosinophils % 0.8 % (0.1-12.0); Hematocrit 25.5 % (42.0-52.0); Lymphocytes # 0.5 K/mm3 (0.7-4.5); Lymphocytes % 9.9 % (10-50); Mean Corpuscular HGB Conc 31.5 g/dL (31.8-35.4); Mean Corpuscular Hemoglobin 30.6 pg (27.0-31.2); Mean Corpuscular Volume 97.1 fl (80-94); Mean Platelet Volume 10.3 fl (7.4-10.4); Monocytes % 0.6 % (1.7-9.3); Neutrophils # 4.7 K/mm3 (1.8-7.8); Neutrophils % 88.5 % (37.0-80.0); Platelet Count 384 K/mm3 (142-424); Red Blood Count 2.63 M/mm3 (4.60-6.20); Red Cell Distribution Width 21.6 % (11.5-17.5); White Blood Count 5.3 K/mm3 (4.8-10.8)
[2022-09-24 16:29] LABS: Hemoglobin 8.1 g/dL (14.1-18.0); MANUAL DIFFERENTIAL MANUAL DIFFERENTIAL (MANUAL DIFF)
--- NOTE | 2022-09-24 17:10 | PC.NURSE ---
Pt arrived to the floor at this time
[2022-09-24 18:04] LABS: Chloride 103 mmol/L (98-107); Potassium 4.2 mmoL/L (3.5-5.1); Sodium 135 mmol/L (136-145)
[2022-09-24 18:05] LABS: Hemoglobin A1C 6.4 % (4.0-6.0)
[2022-09-24 18:06] LABS: Alanine Aminotransferase 153 U/L (12-78); Albumin Level 3.6 g/dl (3.5-5.0); Albumin/Globulin Ratio 1.4 (1.1-1.8); Alkaline Phosphatase 94 U/L (38-126); Anion Gap 17.2 mEq/L (5-15); Aspartate Amino Transferase 309 U/L (17-59); Bilirubin,Total 0.7 mg/dl (0.2-1.3); Blood Urea Nitrogen 21 mg/dl (9-20); Carbon Dioxide 19 mmol/L (22.0-30.0); Creatinine Clearance Estimated 46 mL/min (50-200); Estimated Glomerular Filt Rate 53 ml/min (>60); GFR (African American) 64 ML/MIN (>60); Globulin 2.6 g/dL (1.3-3.2); Total Protein,Serum 6.2 g/dl (6.3-8.2)
[2022-09-24 18:07] LABS: Calcium 8.8 mg/dl (8.4-10.2)
[2022-09-24 18:17] LABS: Glucose 605 mg/dl (74-100)
[2022-09-24 18:21] LABS: Lymphocytes % 10 % (10-50); Monocytes % 2 % (2-9); Neutrophils % 88 % (42-76); Ovalocytes 1+; Platelet Estimate Normal; Total Cells Counted 100
[2022-09-24 18:22] LABS: Tear Drop Cells 1+
--- NOTE | 2022-09-24 18:23 | PC.NURSE ---
notified Dr. Sandra of glucose 605 and pt complaint of chest pain, neck pain, and stomach. No new orders, stated he would come see pt. VS stable and patient on 2LNC at 100%. Pericardial drain bag in place, no blood clots noted.
[2022-09-24 18:34] LABS: Creatine Kinase 45 U/L (55-170)
--- NOTE | 2022-09-24 18:49 | EXP.HP ---
History of Present Illness *Admission Date: 09/24/22 *Reason for visit:: Pericardial effusion, hypotension, hyperglycemia *History of present illness: Patient is an 81-year-old male with past medical history of coronary artery disease, hypertension, type 2 diabetes, and hypothyroidism who is admitted to the medical floor status post left heart cath earlier today. Stents were placed in the proximal LAD and the right coronary artery. Patient had a pericardial effusion that was drained by Dr. Shaffer with a pigtail catheter remaining to drain any residual pericardial effusion. Patient became hypotensive during left heart cath and was given Solu-Medrol 125 IV. Blood sugars were noted to be significantly elevated and hemoglobin dropped from 9.4-8.1. Patient will be admitted to the medical floor, Dr. Shaffer has ordered 2 units of packed red blood cells for transfusion and a repeat echo tomorrow morning to assess pericardial effusion. [facility] Disclaimer: The information contained in this section may have been updated after the patient was seen, as this information can be updated by other users. Medical History (Updated 09/24/22 @ 19:09 by Bienvenido Sandra MD) Abnormal electrocardiogram [ECG] [EKG] Diabetes mellitus Dyspnea Family History (Updated 09/24/22 @ 09:45 by Mary Cotton RN) Other No significant family history Social History (Updated 09/24/22 @ 16:08 by Gadiel Goodson CRNA) Smoking Status: Former smoker alcohol intake: current substance use type: denies use current occupational status: retired Travel in the last 8 weeks: Inside the [place] Review of Systems Constitutional Constitutional: Denies body ache(s), Denies chills, Reports fatigue, Denies fever(s) and Reports lethargy Eyes Eyes: Denies change in vision ENT Ears, Nose, Mouth, and Throat: Reports abnormal hearing (Decreased hearing), Denies change in voice, Denies dizziness, Denies dysphagia and Denies throat swelling *Cardiovascular Cardiovascular: Reports chest pain, Reports chest pain at rest, Reports dyspnea, Reports dyspnea on exertion and Denies irregular heart rhythm *Respiratory Respiratory: Reports cough, Reports dyspnea and Reports dyspnea on exertion *Gastrointestinal Gastrointestinal: Denies abdominal pain, Denies change in bowel habits, Denies constipation and Denies dysphagia *Musculoskeletal Musculoskeletal: Denies abnormal gait, Denies muscle weakness and Denies myalgias *Neurologic Neurologic: Denies abnormal gait, Reports abnormal hearing (Decreased hearing), Denies behavioral changes and Denies dizziness Psychiatric Psychiatric: Denies anxiety, Denies behavioral changes and Denies depression Endocrine Endocrine: Reports fatigue Allergic/Immunologic Allergic/Immunologic: Denies throat swelling Meds Home Medications and Allergies Home Medications Medication Instructions Recorded Confirmed Type levothyroxine 112 mcg tablet 112 mcg PO DAILY hypothyroid 08/15/19 09/24/22 History metformin 1,000 mg tablet 1,000 mg PO BID Diabetes 08/15/19 09/24/22 History atorvastatin 40 mg tablet 40 mg PO DAILY Hypertension 09/21/21 09/24/22 History glipizide 5 mg tablet 5 mg PO DAILY Diabetes 09/21/21 09/24/22 History metoprolol tartrate 50 mg tablet 50 mg PO DAILY Hypertension 09/21/21 09/24/22 History gabapentin 400 mg tablet 400 mg PO BID Pain 09/16/22 09/24/22 History aspirin 81 mg tablet,delayed 81 mg PO DAILY CAD #30 tabs 09/24/22 Rx release ([place] Low Dose Aspirin) clopidogrel 75 mg tablet (Plavix) 75 mg PO DAILY #30 tabs 09/24/22 Rx New Prescriptions to Start Prescriptions: aspirin [[place] Low Dose Aspirin] Regis Shaffer clopidogrel [Plavix] Regis Shaffer Allergies Allergy/AdvReac Type Severity Reaction Status Date / Time iodine Allergy Severe S-SWELLS-OR Verified 09/16/22 13:32 AL/THROAT shellfish derived Allergy Intermediate I-HIVES Verified 09/16/22 13
[2022-09-24 19:06] LABS: Acetone, Serum (Rapid) None Detected (None Detect)
--- NOTE | 2022-09-24 21:54 | PC.NURSE ---
Notified Jax Shaffer [id number] output in pericardial drainage bag. Only 20cc out since arriving to shift. MD states to order 2 more units PRBC for a total of 4 units. Order a CBC after 2nd unit is given.
[2022-09-24 22:55] LABS: POC Glucose,Bedside 363 (70-110)
[2022-09-25] VITALS (20 sets, daily range): BP systolic 111–164; BP diastolic 58–88; PULSE 80–120; RESP 14–24; TEMP 36.3–37; O2SAT 98–100; BMI 23.2
[2022-09-25 01:10] LABS: Influenza A, PCR Not Detected (NotDetected); Influenza B, PCR Not Detected (NotDetected)
[2022-09-25 01:34] LABS: Coronavirus 19, PCR Detected (NotDetected)
[2022-09-25 06:16] LABS: Chloride 106 mmol/L (98-107)
[2022-09-25 06:17] LABS: Basophils # 0.1 K/mm3 (0-0.2); Basophils % 0.2 % (0.1-2.0); Eosinophils # 0.1 K/mm3 (0.0-0.4); Eosinophils % 0.3 % (0.1-12.0); Hematocrit 31.8 % (42.0-52.0); Lymphocytes # 1.7 K/mm3 (0.7-4.5); Mean Corpuscular HGB Conc 32.4 g/dL (31.8-35.4); Mean Corpuscular Hemoglobin 29.8 pg (27.0-31.2); Mean Corpuscular Volume 91.9 fl (80-94); Mean Platelet Volume 9.8 fl (7.4-10.4); Monocytes # 0.7 K/mm3 (0.1-1.0); Neutrophils # 21.9 K/mm3 (1.8-7.8); Neutrophils % 89.4 % (37.0-80.0); Platelet Count 338 K/mm3 (142-424); Potassium 4.1 mmoL/L (3.5-5.1); Red Blood Count 3.46 M/mm3 (4.60-6.20); Red Cell Distribution Width 20.5 % (11.5-17.5); Sodium 139 mmol/L (136-145); White Blood Count 24.5 K/mm3 (4.8-10.8)
[2022-09-25 06:19] LABS: Alanine Aminotransferase 102 U/L (12-78); Alkaline Phosphatase 75 U/L (38-126); Anion Gap 13.1 mEq/L (5-15); Aspartate Amino Transferase 102 U/L (17-59); Bilirubin,Total 1.2 mg/dl (0.2-1.3); Blood Urea Nitrogen 22 mg/dl (9-20); Carbon Dioxide 24 mmol/L (22.0-30.0); Creatinine Clearance Estimated 54 mL/min (50-200); Estimated Glomerular Filt Rate 64 ml/min (>60); GFR (African American) 77 ML/MIN (>60)
[2022-09-25 06:20] LABS: Albumin Level 3.7 g/dl (3.5-5.0); Albumin/Globulin Ratio 1.4 (1.1-1.8); Calcium 9.3 mg/dl (8.4-10.2); Globulin 2.7 g/dL (1.3-3.2); Glucose 116 mg/dl (74-100); Magnesium 1.6 mg/dl (1.6-2.3); Total Protein,Serum 6.4 g/dl (6.3-8.2)
[2022-09-25 06:28] LABS: POC Glucose,Bedside 217 (70-110)
--- NOTE | 2022-09-25 06:30 | PC.NURSE ---
Pt has been up in chair with eyes closed but continues to be very restless. Pt has been 1 on 1. Pt received 2 u PRBC during shift, tolerated well. Call light within reach. Edmund called to get update on pt this am. States he does not want to give any more blood until CBC comes back. Pt to have echo this AM.
[2022-09-25 06:35] LABS: Lactic Acid 2.9 mmol/L (0.7-2.1)
[2022-09-25 06:43] LABS: Hemoglobin 10.3 g/dL (14.1-18.0); MANUAL DIFFERENTIAL MANUAL DIFFERENTIAL (MANUAL DIFF)
[2022-09-25 07:32] LABS: POC Glucose,Bedside 152 (70-110)
[2022-09-25 07:42] LABS: Lymphocytes % 8 % (10-50); Monocytes % 1 % (2-9); Neutrophils % 91 % (42-76); Platelet Estimate Normal; RBC Morphology Normal; Total Cells Counted 100
--- NOTE | 2022-09-25 07:44 | PC.NURSE ---
At 2345, This RN entered roomand found pt taking off gown and had taken off oxygen,bp cuff. Oxygen sat 98% on RA. On assessment, pt is alert to person. Pt attempts to pull at tele/IVs/and pericardial drain and stand up out of bed. This Rn and aide attempt to get pt to lay back in bed. Pt becomes combative and aggressive. 2351 Hospitalist notified of pt status. 0.5 mg Ativan IV once ordered. 2355 Pt pulls out 1 IV and pericardial drain at this time. 2357 Edmund called to notify of pt status. Edmund orders 2 mg Haloperidol IV once. 0100 Pt continues to pull at tubing and refuses to cooperate with care. Pt is unaware of surroundings. Hospitalist notified. 4mg Haloperidol IV once administered. 0103 Blood sugar 217. Notified hospitalist- states to hold insulin at this time. 0130 Pt appears to have tremors, c/o a severe RIOJAS, and asking if he can have moonshine. When asked if pt drinks every day, pt states I like to but i havent because I havent felt good. Hospitalist notified. CIWA 24. 0146 Hospitalist orders 1mg Ativan IV once. 0200 Pt calm at this point. CIWA protocol started.
--- NOTE | 2022-09-25 08:00 | CA_ITS ---
APPROVED REPORT EXAM: Comprehensive 2D, Doppler, and color-flow Echocardiogram [employer] Worker: Jolene Galindo RT(R) Ht: 5 ft 10 in Wt: 165lbs BSA: 1.92 BP: 132/65 mmHg Indications: Limited echo to check effusion 12 hours post pericardiocentesis, patient is combative today and unable to lay still for imaging. Conclusion 1. Limited echocardiogram was obtained to evaluate for pericardial effusion. 2. Small pericardial effusion noted, there is no right ventricular diastolic collapse to suggest tamponade physiology. 3. Normal left ventricular systolic function. Electronically signed by : Giles Bernal MD 09/26/2022 06:25:24
[2022-09-25 10:08] LABS: Reflex Lactic Add Lactic Reflex
[2022-09-25 10:40] LABS: Lactic Acid Follow Up (RFLX 1) 3.9 mmol/L (0.7-2.1)
--- NOTE | 2022-09-25 10:47 | EXP.CARD.CON ---
History of Present Illness History of Present Illness Consult date: 09/25/22 Requesting physician: Bienvenido Sandra Consult reason: chest pain Chief complaint: pericardial effusion after coronary stenting Additional Medical History:: 1. Diabetes mellitus type 2 2. Anemia with recent blood transfusion, 09/2022 at the [facility] 3. Hyperlipidemia 4. History of congestive heart failure of new onset and unknown etiology, 09/2022 5. Dementia with questionable history of alcohol use 6. Recent COVID infection, August 2022 7. Coronary artery disease A. Left heart catheterization, 09/24/2022 ANGIOGRAPHIC RESULTS The left main artery Has a distal concentric calcified 40% stenosis The left anterior descending artery Is heavily calcified and has a greater than 90% stenosis in the proximal segment as confirmed by intravascular ultrasound.? There is distal 40 and 50% stenoses in the distal portion of the proximal LAD stent the remaining LAD has additional 40 to 50% calcified mid vessel stenoses The circumflex artery Nondominant and has calcified 30 and 40% stenoses The right coronary artery Is a large dominant vessel and has stents in the ostial proximal mid and distal segments.? The ostium is 40% stenosed while there is a concentric 70 to 80% mid vessel stenosis with additional 50% stenoses.? The vessel is densely calcified.? Distally there is a 50% concentric stenosis immediately proximal to a large posterior lateral and posterior descending artery The BENAVIDES ventriculogram reveals Slightly dilated with ejection fraction of 50% The left ventricular end-diastolic pressure 10 mmHg IMPRESSION Severe to critical proximal LAD disease with successful intravascular lithotripsy followed by drug-eluting stent deployment to the proximal LAD reducing critical disease to less than 10% Severe to critical dominant right coronary artery disease with successful intravascular lithotripsy followed by drug-eluting stent deployment to the ostial proximal mid and distal right coronary in a contiguous manner PLAN 1. Dual antiplatelet therapy 2. LDL less than 55 to be achieved with high intensity statin 3. Cardiac rehabilitation 4. Avoidance of tobacco products 5. Patient should be admitted overnight due to the complexity of the procedure and his advanced age.? Copious contrast was used for the procedure Electronically signed by : Regis Shaffer MD? 09/24/2022 16:38:34 B. Postprocedure large pericardial effusion requiring pericardiocentesis and placement of pericardial drain. Patient did remove the pericardial drain during confused episode overnight. Repeat echocardiogram the next morning shows small pericardial effusion persist. History of present illness: Patient is an 81-year-old male with past medical history of coronary artery disease, hypertension, type 2 diabetes, and hypothyroidism who is admitted to the medical floor status post left heart cath earlier today.? Stents were placed in the proximal LAD and the right coronary artery.? Patient had a pericardial effusion that was drained by Dr. Shaffer with a pigtail catheter remaining to drain any residual pericardial effusion.? Patient became hypotensive during left heart cath and was given Solu-Medrol 125 IV.? Blood sugars were noted to be significantly elevated and hemoglobin dropped from 9.4-8.1.? Patient will be admitted to the medical floor, Dr. Shaffer has ordered 2 units of packed red blood cells for transfusion and a repeat echo tomorrow morning to assess pericardial effusion. The above per Dr. Sandra. Patient's confusion continued overnight requiring IV Haldol and Ativan. Reports of daily alcohol use made by patient but unconfirmed with family at this time. He did receive 2 units of blood overnight with resultant hemoglobin of 10.3 this morning. Patient did test positive for COVID this morning. His AST and ALT elevations have improved but not returned to normal. [facility] Disclaimer: The inform
[2022-09-25 12:03] LABS: POC Glucose,Bedside 244 (70-110)
[2022-09-25 12:29] LABS: Reflex Lactic (2 hrs) Add Lactic Reflex
[2022-09-25 13:45] LABS: Lactic Acid Follow up (RFLX 2) 2.7 mmol/L (0.7-2.1)
[2022-09-25 17:01] LABS: POC Glucose,Bedside 200 (70-110)
--- NOTE | 2022-09-25 17:19 | PC.NURSE ---
Per Dr. Lalo Shaffer, do not give patient anymore ativan or any sedating medications. Dr. Sandra notified. Dr. Sandra notified that patient less agitated if not stimulated. Need for sitter re-evaluated. See order
--- NOTE | 2022-09-25 17:36 | EXP.PN ---
Subjective *Date: 09/25/22 *Time: 17:36 Interval history: Patient agitated and confused overnight. He pulled out his pigtail catheter that was draining a pericardial effusion. This morning patient is sedated, seems somewhat agitated, breathing fine on his own, but not really answering any questions. Exam Data for Last 24 hours Vital signs and Labs for Last 24 Hours: Temp Pulse Resp BP Pulse Ox 97.8 F 106 H 19 142/73 H 100 09/25/22 15:35 09/25/22 16:00 09/25/22 15:35 09/25/22 15:35 09/25/22 15:35 Laboratory Results - last 24 hr 09/24/22 15:57: Blood Type A Positive, Antibody Screen Negative, Crossmatch ([facility]) See Detail 09/24/22 15:57: Total Counted 100, Neutrophils % (Manual) 88 H, Lymphocytes % (Manual) 10, Monocytes % (Manual) 2, Platelet Estimate Normal, RBC Morphology Not Reportable, Tear Drop Cells 1+, Ovalocytes 1+ 09/24/22 17:36: Sodium 135 L, Potassium 4.2, Chloride 103, Carbon Dioxide 19 L, Anion Gap 17.2 H, BUN 21 H, Creatinine 1.30 H, Estimated Creat Clear 46, Estimated GFR 53 L, Est GFR ( Amer) 64, Glucose 605 H* D, Calcium 8.8, Total Bilirubin 0.7, AST 309 H*, ALT 153 H, Alkaline Phosphatase 94, Total Protein 6.2 L, Albumin 3.6, Globulin 2.6, Albumin/Globulin Ratio 1.4 09/24/22 17:36: Hemoglobin A1c 6.4 H 09/24/22 17:36: Blood Type Confirm A Positive 09/24/22 17:36: Total Creatine Kinase 45 L 09/24/22 17:36: Acetone Level None detected 09/24/22 22:27: POC Glucose 363 H* 09/25/22 00:46: POC Glucose 217 H 09/25/22 01:00: SARS-CoV-2 (PCR) Detected A, Influenza A Untype (PCR) Not detected, Influenza Type B (PCR) Not detected 09/25/22 05:40: Sodium 139, Potassium 4.1, Chloride 106, Carbon Dioxide 24, Anion Gap 13.1, BUN 22 H, Creatinine 1.10, Estimated Creat Clear 54, Estimated GFR 64, Est GFR ( Amer) 77 D, Glucose 116 H D, Calcium 9.3, Magnesium 1.6, Total Bilirubin 1.2, AST 102 H D, ALT 102 H D, Alkaline Phosphatase 75, Total Protein 6.4, Albumin 3.7, Globulin 2.7, Albumin/Globulin Ratio 1.4 09/25/22 05:40: Lactate 2.9 H 09/25/22 05:40: WBC 24.5 H* D, RBC 3.46 L D, Hgb 10.3 L D, Hct 31.8 L, MCV 91.9, MCH 29.8, MCHC 32.4, RDW 20.5 H, Plt Count 338, MPV 9.8, Neut % (Auto) 89.4 H, Lymph % (Auto) 7.0 L, [place] % (Auto) 3.0, Eos % (Auto) 0.3, Baso % (Auto) 0.2, Neut # (Auto) 21.9 H, Lymph # (Auto) 1.7, [place] # (Auto) 0.7, Eos # (Auto) 0.1, Baso # (Auto) 0.1, Total Counted 100, Neutrophils % (Manual) 91 H, Lymphocytes % (Manual) 8 L, Monocytes % (Manual) 1 L, Platelet Estimate Normal, RBC Morphology Normal 09/25/22 06:16: POC Glucose 152 H 09/25/22 10:20: Lactate 3.9 H 09/25/22 11:54: POC Glucose 244 H 09/25/22 13:25: Lactate 2.7 H 09/25/22 16:52: POC Glucose 200 H I & O for Last 24 hours: Intake & Output 09/22/22 09/23/22 09/24/22 09/25/22 23:59 23:59 23:59 23:59 Intake Total 250 / 250 250 / 250 Output Total 740 / 740 220 / 220 Balance -490 / -490 30 / 30 Weight 75.296 kg 75.296 kg Constitutional Constitutional: no acute distress, average body habitus, agitated and somnolent *Routine HEENT Exam Head: Present normocephalic and atraumatic Eye: Present EOMI and PERRL ENT: Present mucous membranes moist *Routine Neck Exam Neck: Present supple and full ROM *Routine Respiratory Exam Respiratory: Present decreased breath sounds, CTA bilaterally, prolonged expiratory phase and normal respiratory effort; Absent rhonchi or wheezes *Routine Cardiovascular Exam Cardiovascular: Present RRR and tachycardia; Absent murmur, gallop or rubs *Routine Abdominal Exam Abdominal: Present soft; Absent tenderness, distended, rebound or guarding *Routine Extremities Exam Extremities: Present normal capillary refill; Absent cyanosis, clubbing or edema *Routine Neurological Exam Comments: Patient was agitated overnight, he is currently sedated and sleeping, although still somewhat agitated appearing even while sleeping. Routine Psychiatric Exam Psychiatric: Present agitated and unable to assess Assessment and Plan *As
--- NOTE | 2022-09-25 18:23 | PC.NURSE ---
Patient will not follow commands or answer any questions during shift. Patient mainly agitated when stimulated. VS stable except for heart rate. Patient would be between 105-122. Metoprolol ordered but patient would not take po medications. Metoprolol 5mg iv given per verbal order from STANLEY Taylor. Heart cath site clean dry and intact, pericardial drain site clean dry and intact.
[2022-09-25 18:51] LABS: POC Glucose,Bedside 241 (70-110)
--- NOTE | 2022-09-25 22:07 | PC.NURSE ---
2100 PO MEDS HELD DUE TO PT BEING TOO LETHARGIC TO SWALLOW. ADRIANE MARCIAL NP MADE AWARE.
[2022-09-26] VITALS (8 sets, daily range): BP systolic 157–173; BP diastolic 77–95; PULSE 106–124; RESP 17–22; TEMP 36.4–37.2; O2SAT 93–98; BMI 23.3; BMI 23.1
--- NOTE | 2022-09-26 | XR_ITS ---
PROCEDURE INFORMATION: Exam: XR Chest Exam date and time: 09/26/2022 12:20 AM Age: 81 years old Clinical indication: Condition or disease; Lung condition and disease; Hypoxia TECHNIQUE: Imaging protocol: Radiologic exam of the chest. Views: 1 view. COMPARISON: CR XR CHEST 2V 09/15/2022 9:38 PM FINDINGS: Lungs: Lung bases there is atelectasis. Low lung volumes. No consolidation. Pleural spaces: Unremarkable. No pleural effusion. No pneumothorax. Heart/Mediastinum: Unremarkable. No cardiomegaly. Bones/joints: Unremarkable. IMPRESSION: No acute findings.
[2022-09-26 00:13] LABS: Basophils # 0.1 K/mm3 (0-0.2); Basophils % 0.4 % (0.1-2.0); Eosinophils # 0.3 K/mm3 (0.0-0.4); Eosinophils % 1.6 % (0.1-12.0); Hematocrit 34.1 % (42.0-52.0); Hemoglobin 10.9 g/dL (14.1-18.0); Lymphocytes # 2.3 K/mm3 (0.7-4.5); Lymphocytes % 11.1 % (10-50); Mean Corpuscular HGB Conc 31.9 g/dL (31.8-35.4); Mean Corpuscular Hemoglobin 29.7 pg (27.0-31.2); Mean Corpuscular Volume 92.9 fl (80-94); Mean Platelet Volume 10.1 fl (7.4-10.4); Monocytes # 0.7 K/mm3 (0.1-1.0); Monocytes % 3.5 % (1.7-9.3); Neutrophils # 17.1 K/mm3 (1.8-7.8); Neutrophils % 83.3 % (37.0-80.0); Platelet Count 407 K/mm3 (142-424); Red Blood Count 3.68 M/mm3 (4.60-6.20); Red Cell Distribution Width 21.1 % (11.5-17.5); White Blood Count 20.5 K/mm3 (4.8-10.8)
[2022-09-26 00:20] LABS: MANUAL DIFFERENTIAL MANUAL DIFFERENTIAL (MANUAL DIFF)
[2022-09-26 00:26] LABS: Alanine Aminotransferase 156 U/L (12-78); Albumin Level 3.7 g/dl (3.5-5.0); Albumin/Globulin Ratio 1.4 (1.1-1.8); Alkaline Phosphatase 165 U/L (38-126); Anion Gap 13.8 mEq/L (5-15); Aspartate Amino Transferase 121 U/L (17-59); Bilirubin,Total 1.5 mg/dl (0.2-1.3); Blood Urea Nitrogen 31 mg/dl (9-20); Calcium 9.3 mg/dl (8.4-10.2); Carbon Dioxide 23 mmol/L (22.0-30.0); Chloride 106 mmol/L (98-107); Creatinine Clearance Estimated 37 mL/min (50-200); Estimated Glomerular Filt Rate 41 ml/min (>60); GFR (African American) 50 ML/MIN (>60); Globulin 2.7 g/dL (1.3-3.2); Glucose 164 mg/dl (74-100); Potassium 4.8 mmoL/L (3.5-5.1); Sodium 138 mmol/L (136-145); Total Protein,Serum 6.4 g/dl (6.3-8.2)
[2022-09-26 01:07] LABS: Lymphocytes % 14 % (10-50); Monocytes % 3 % (2-9); Neutrophils % 83 % (42-76); Total Cells Counted 100
[2022-09-26 01:09] LABS: Ovalocytes 1+; Platelet Estimate Normal
[2022-09-26 01:21] LABS: POC Glucose,Bedside 152 (70-110)
[2022-09-26 01:21] LABS: POC Glucose,Bedside 173 (70-110)
[2022-09-26 05:27] LABS: POC Glucose,Bedside 97 (70-110)
--- NOTE | 2022-09-26 05:36 | PC.NURSE ---
NO ACUTE CHANGES SINCE PREVIOUS ASSESSMENT. PT HAS NOT RESTED MUCH THIS SHIFT. REMAINS CONFUSED AND LETHARGIC. BP AND HEART RATE HAVE REMAINED HIGH THIS SHIFT. ADRIANE MARCIAL DIP STAND LOADER HAS ORDERED METOPROLOL IV X2 THIS SHIFT. BED ALARM AND MITTENS IN PLACE FOR PT SAFETY. LUNG SOUNDS REMAIN DIMINISHED. TOLERATING ROOM AIR WELL.
--- NOTE | 2022-09-26 10:28 | EXP.CARD.PN ---
Subjective Subjective Date: 09/26/22 Time: 10:28 Principal diagnosis: CAD, confusion Interval history: 81-year-old white male in bed. Patient is still confused but does acknowledge me when trying to talk to him. He is still unable to answer any questions at this time. Patient did pull his IV out this morning. He is not taking any medications orally at this time. Chest x-ray today shows no acute process Exam Data for Last 24 hours Vital signs and Labs for Last 24 Hours: Temp Pulse Resp BP Pulse Ox 97.7 F 109 H 18 160/95 H 95 09/26/22 08:00 09/26/22 08:00 09/26/22 08:00 09/26/22 08:00 09/26/22 08:00 Laboratory Results - last 24 hr 09/25/22 10:20: Lactate 3.9 H 09/25/22 11:54: POC Glucose 244 H 09/25/22 13:25: Lactate 2.7 H 09/25/22 16:52: POC Glucose 200 H 09/25/22 18:41: POC Glucose 241 H 09/25/22 21:00: POC Glucose 173 H 09/26/22 00:00: WBC 20.5 H*, RBC 3.68 L, Hgb 10.9 L, Hct 34.1 L, MCV 92.9, MCH 29.7, MCHC 31.9, RDW 21.1 H, Plt Count 407, MPV 10.1, Neut % (Auto) 83.3 H, Lymph % (Auto) 11.1, [place] % (Auto) 3.5, Eos % (Auto) 1.6, Baso % (Auto) 0.4, Neut # (Auto) 17.1 H, Lymph # (Auto) 2.3, [place] # (Auto) 0.7, Eos # (Auto) 0.3, Baso # (Auto) 0.1, Total Counted 100, Neutrophils % (Manual) 83 H, Lymphocytes % (Manual) 14, Monocytes % (Manual) 3, Platelet Estimate Normal, Ovalocytes 1+ 09/26/22 00:00: Sodium 138, Potassium 4.8, Chloride 106, Carbon Dioxide 23, Anion Gap 13.8, BUN 31 H D, Creatinine 1.60 H D, Estimated Creat Clear 37, Estimated GFR 41 L, Est GFR ( Amer) 50 L D, Glucose 164 H D, Calcium 9.3, Total Bilirubin 1.5 H, AST 121 H, ALT 156 H D, Alkaline Phosphatase 165 H, Total Protein 6.4, Albumin 3.7, Globulin 2.7, Albumin/Globulin Ratio 1.4 09/26/22 01:08: POC Glucose 152 H 09/26/22 05:15: POC Glucose 97 I & O for Last 24 hours: Intake & Output 09/23/22 09/24/22 09/25/22 09/26/22 11:59 11:59 11:59 11:59 Intake Total 500 / 500 1600 / 1600 Output Total 960 / 960 0 / 0 Balance -460 / -460 1600 / 1600 Weight 166 lb 165 lb 15.988 oz 166 lb 4 oz Constitutional Constitutional: no acute distress *Routine Respiratory Exam Respiratory: Present diminished air movement *Routine Cardiovascular Exam Cardiovascular: Present RRR and tachycardia *Routine Extremities Exam Extremities: Present extremity cold to touch; Absent edema Progress Note: A&P Assessment and plan (1) Altered mental status: Status: Acute (2) Anemia: Status: Acute (3) CHF (congestive heart failure): Status: Acute (4) DM type 2 (diabetes mellitus, type 2): Status: Acute (5) Elevated liver enzymes: Status: Acute (6) Pericardial effusion after operative procedure: Status: Acute (7) COVID-19: Status: Acute Assessment and Plan Assessment and Plan for All Diagnoses:: 1.? CAD with coronary stenting to LAD and RCA.? Continue dual antiplatelet therapy with aspirin and Plavix (rectally if not taking oral). Normal LV function by echo. 2.? Pericardial effusion post procedure, status post pericardiocentesis with significant improvement in pericardial effusion.? Patient removed pericardial drain during confusion.? Continue to monitor with as needed limited echo and hemoglobin/hematocrit.? He did receive 2 units of blood this admission. 3.? Dementia with agitation which complicates all aspects of his care 4.? Diabetes mellitus, per hospitalist 5.? Elevated LFTs, improved 6.? Hypertension with tachycardia, will start metoprolol tartrate 25 mg twice daily when taking oral. 7. Anemia, stable 8. 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 Continue to allow sedation to wear off. Family at bedside assisting to calm/reorient. Will get limited echo to reassess pericardial effusion if patient will allow. Still not taking oral meds so will give ASA and plavix rectally.
--- NOTE | 2022-09-26 10:36 | PC.NURSE ---
Per sukumar Taylor Dr. stated to leave iv out since patient had pulled his iv out.
[2022-09-26 11:20] LABS: Chloride 109 mmol/L (98-107); Sodium 141 mmol/L (136-145)
[2022-09-26 11:23] LABS: Alanine Aminotransferase 150 U/L (12-78); Albumin Level 3.5 g/dl (3.5-5.0); Albumin/Globulin Ratio 1.3 (1.1-1.8); Alkaline Phosphatase 149 U/L (38-126); Aspartate Amino Transferase 125 U/L (17-59); Basophils # 0.1 K/mm3 (0-0.2); Basophils % 0.3 % (0.1-2.0); Bilirubin,Total 1.6 mg/dl (0.2-1.3); Blood Urea Nitrogen 30 mg/dl (9-20); Calcium 9.1 mg/dl (8.4-10.2); Carbon Dioxide 24 mmol/L (22.0-30.0); Creatinine Clearance Estimated 43 mL/min (50-200); Eosinophils # 0.1 K/mm3 (0.0-0.4); Eosinophils % 0.3 % (0.1-12.0); Estimated Glomerular Filt Rate 48 ml/min (>60); GFR (African American) 59 ML/MIN (>60); Globulin 2.8 g/dL (1.3-3.2); Glucose 68 mg/dl (74-100); Hematocrit 31.7 % (42.0-52.0); Hemoglobin 10.5 g/dL (14.1-18.0); Lactic Acid 1.5 mmol/L (0.7-2.1); Lymphocytes # 1.6 K/mm3 (0.7-4.5); Lymphocytes % 8.9 % (10-50); Mean Corpuscular Hemoglobin 30.3 pg (27.0-31.2); Mean Corpuscular Volume 91.8 fl (80-94); Mean Platelet Volume 9.9 fl (7.4-10.4); Monocytes # 0.7 K/mm3 (0.1-1.0); Monocytes % 3.9 % (1.7-9.3); Neutrophils # 15.8 K/mm3 (1.8-7.8); Neutrophils % 86.6 % (37.0-80.0); Platelet Count 388 K/mm3 (142-424); Red Blood Count 3.45 M/mm3 (4.60-6.20); Red Cell Distribution Width 20.8 % (11.5-17.5); Total Protein,Serum 6.3 g/dl (6.3-8.2); White Blood Count 18.2 K/mm3 (4.8-10.8)
[2022-09-26 11:24] LABS: MANUAL DIFFERENTIAL MANUAL DIFFERENTIAL (MANUAL DIFF)
[2022-09-26 12:24] LABS: POC Glucose,Bedside 69 (70-110)
[2022-09-26 12:59] LABS: Lymphocytes % 12 % (10-50); Monocytes % 4 % (2-9); Neutrophils % 84 % (42-76); Total Cells Counted 100
[2022-09-26 13:00] LABS: Platelet Estimate Normal; RBC Morphology Normal
--- NOTE | 2022-09-26 13:30 | PC.NURSE ---
STANLEY Taylor and Dr. Lalo Shaffer notified that patient's glucose was 69, will recheck and if sugar is still low ok to obtain iv for glucose administration if needed
--- NOTE | 2022-09-26 13:47 | CA_ITS ---
APPROVED REPORT EXAM: Comprehensive 2D, Doppler, and color-flow Echocardiogram Jumpbasting Facing Baster: Lucretia Mac CRT Ht: 5 ft 10 in Wt: 165lbs BSA: 1.92 BP: 173/85 mmHg Indications: evaluate pericardial effusion, uncooperative. Conclusion 1. Limited echocardiogram was obtained. 2. Small to moderate sized pericardial effusion without obvious right ventricular diastolic collapse. 3. Normal left ventricular systolic function. Electronically signed by : Giles Bernal MD 09/27/2022 19:02:52
--- NOTE | 2022-09-26 17:29 | EXP.PN ---
Subjective *Date: 09/26/22 *Time: 17:29 Interval history: Patient remains confused and somewhat agitated. Exam Data for Last 24 hours Vital signs and Labs for Last 24 Hours: Temp Pulse Resp BP Pulse Ox 98.8 F 111 H 17 157/77 H 93 L 09/26/22 15:22 09/26/22 15:22 09/26/22 15:22 09/26/22 15:22 09/26/22 15:22 Laboratory Results - last 24 hr 09/25/22 18:41: POC Glucose 241 H 09/25/22 21:00: POC Glucose 173 H 09/26/22 00:00: WBC 20.5 H*, RBC 3.68 L, Hgb 10.9 L, Hct 34.1 L, MCV 92.9, MCH 29.7, MCHC 31.9, RDW 21.1 H, Plt Count 407, MPV 10.1, Neut % (Auto) 83.3 H, Lymph % (Auto) 11.1, [place] % (Auto) 3.5, Eos % (Auto) 1.6, Baso % (Auto) 0.4, Neut # (Auto) 17.1 H, Lymph # (Auto) 2.3, [place] # (Auto) 0.7, Eos # (Auto) 0.3, Baso # (Auto) 0.1, Total Counted 100, Neutrophils % (Manual) 83 H, Lymphocytes % (Manual) 14, Monocytes % (Manual) 3, Platelet Estimate Normal, Ovalocytes 1+ 09/26/22 00:00: Sodium 138, Potassium 4.8, Chloride 106, Carbon Dioxide 23, Anion Gap 13.8, BUN 31 H D, Creatinine 1.60 H D, Estimated Creat Clear 37, Estimated GFR 41 L, Est GFR ( Amer) 50 L D, Glucose 164 H D, Calcium 9.3, Total Bilirubin 1.5 H, AST 121 H, ALT 156 H D, Alkaline Phosphatase 165 H, Total Protein 6.4, Albumin 3.7, Globulin 2.7, Albumin/Globulin Ratio 1.4 09/26/22 01:08: POC Glucose 152 H 09/26/22 05:15: POC Glucose 97 09/26/22 11:00: Lactate 1.5 09/26/22 11:00: WBC 18.2 H, RBC 3.45 L, Hgb 10.5 L, Hct 31.7 L, MCV 91.8, MCH 30.3, MCHC 33.0, RDW 20.8 H, Plt Count 388, MPV 9.9, Neut % (Auto) 86.6 H, Lymph % (Auto) 8.9 L, [place] % (Auto) 3.9, Eos % (Auto) 0.3, Baso % (Auto) 0.3, Neut # (Auto) 15.8 H, Lymph # (Auto) 1.6, [place] # (Auto) 0.7, Eos # (Auto) 0.1, Baso # (Auto) 0.1, Total Counted 100, Neutrophils % (Manual) 84 H, Lymphocytes % (Manual) 12, Monocytes % (Manual) 4, Platelet Estimate Normal, RBC Morphology Normal 09/26/22 11:00: Sodium 141, Potassium 4.0, Chloride 109 H, Carbon Dioxide 24, Anion Gap 12.0, BUN 30 H, Creatinine 1.40 H, Estimated Creat Clear 43, Estimated GFR 48 L, Est GFR ( Amer) 59, Glucose 68 L D, Calcium 9.1, Total Bilirubin 1.6 H, AST 125 H, ALT 150 H, Alkaline Phosphatase 149 H, Total Protein 6.3, Albumin 3.5, Globulin 2.8, Albumin/Globulin Ratio 1.3 09/26/22 12:09: POC Glucose 69 L I & O for Last 24 hours: Intake & Output 09/23/22 09/24/22 09/25/22 09/26/22 23:59 23:59 23:59 23:59 Intake Total 250 / 250 250 / 250 1600 / 1600 Output Total 740 / 740 220 / 220 0 / 0 Balance -490 / -490 1600 / 1600 Weight 75.296 kg 75.296 kg 75 kg Constitutional Constitutional: moderate distress (From confusion and agitation), average body habitus, agitated and somnolent *Routine HEENT Exam Head: Present normocephalic and atraumatic Eye: Present EOMI and PERRL ENT: Present mucous membranes moist *Routine Neck Exam Neck: Present supple and full ROM *Routine Respiratory Exam Respiratory: Present decreased breath sounds, CTA bilaterally and normal respiratory effort; Absent rhonchi or wheezes *Routine Cardiovascular Exam Cardiovascular: Present tachycardia; Absent murmur, gallop or rubs *Routine Abdominal Exam Abdominal: Present soft; Absent tenderness, distended, rebound or guarding *Routine Extremities Exam Extremities: Present normal capillary refill; Absent cyanosis, clubbing or edema *Routine Neurological Exam Comments: Patient remains groggy and somewhat agitated appearing Routine Psychiatric Exam Psychiatric: Present agitated and unable to assess Assessment and Plan *Assessment and plan (1) Anemia: Status: Acute Qualifiers: Anemia type: unspecified type Qualified Code(s): D64.9 - Anemia, unspecified Category: Medical Code(s): D64.9 - Anemia, unspecified (2) CHF (congestive heart failure): Status: Acute Category: Medical Code(s): I50.9 - Heart failure, unspecified (3) DM type 2 (diabetes mellitus, type 2): Status: Acute Category: Medical
[2022-09-26 17:58] LABS: POC Glucose,Bedside 61 (70-110)
--- NOTE | 2022-09-26 19:59 | PC.NURSE ---
FSBG OF 63 and orders to be placed by Margie BABIN.
[2022-09-26 20:12] LABS: POC Glucose,Bedside 63 (70-110)
[2022-09-26 20:34] LABS: POC Glucose,Bedside 167 (70-110)
--- NOTE | 2022-09-26 22:27 | PC.NURSE ---
UNABLE TO GET BLOOD PRESSURE AT THIS TIME PATIENT COMBATIVE . RN AWARE .
[2022-09-26 23:33] LABS: POC Glucose,Bedside 111 (70-110)
[2022-09-27] VITALS: BP 169/79; PULSE 110; PULSE 99; RESP 18; TEMP 36.5; O2SAT 99
[2022-09-27 04:00] VITALS: BP 140/69; PULSE 107; RESP 22; TEMP 36.4; O2SAT 89; BMI 22.8
--- NOTE | 2022-09-27 04:15 | PC.NURSE ---
Pt. agitated and HR up to 139. Metoprolol given per order and Margie BABIN aware.
--- NOTE | 2022-09-27 04:47 | PC.NURSE ---
Charge nurse aware of pt. being restless and it being difficult to get an accurate telemetry strip. We will wait for his agitation to calm and get another reading.
--- NOTE | 2022-09-27 05:07 | PC.NURSE ---
Attempted to apply oxygen 2L NC and pt will not allow.
--- NOTE | 2022-09-27 05:39 | PC.NURSE ---
Margie BABIN aware of fsbg of 60 and she will be writing orders.
[2022-09-27 05:47] LABS: POC Glucose,Bedside 60 (70-110)
--- NOTE | 2022-09-27 06:26 | PC.NURSE ---
Pt. is still agitated and will not allow laboratory monitor to stay in place. He also has been pulling off his mittens.
[2022-09-27 06:30] LABS: POC Glucose,Bedside 160 (70-110)
[2022-09-27 08:00] VITALS: BP 140/81; PULSE 123; RESP 24; TEMP 36.1
--- NOTE | 2022-09-27 09:25 | EXP.CARD.PN ---
Subjective Subjective Date: 09/27/22 Time: 09:25 Principal diagnosis: CAD, confusion Interval history: 81 yo WM in bed in NAD but fidgeting and restless. Doesn't respond to questions. Exam Data for Last 24 hours Vital signs and Labs for Last 24 Hours: Temp Pulse Resp BP Pulse Ox 97.5 F L 107 H 22 140/69 89 L 09/27/22 04:00 09/27/22 04:00 09/27/22 04:00 09/27/22 04:00 09/27/22 04:00 Laboratory Results - last 24 hr 09/26/22 11:00: Lactate 1.5 09/26/22 11:00: WBC 18.2 H, RBC 3.45 L, Hgb 10.5 L, Hct 31.7 L, MCV 91.8, MCH 30.3, MCHC 33.0, RDW 20.8 H, Plt Count 388, MPV 9.9, Neut % (Auto) 86.6 H, Lymph % (Auto) 8.9 L, [place] % (Auto) 3.9, Eos % (Auto) 0.3, Baso % (Auto) 0.3, Neut # (Auto) 15.8 H, Lymph # (Auto) 1.6, [place] # (Auto) 0.7, Eos # (Auto) 0.1, Baso # (Auto) 0.1, Total Counted 100, Neutrophils % (Manual) 84 H, Lymphocytes % (Manual) 12, Monocytes % (Manual) 4, Platelet Estimate Normal, RBC Morphology Normal 09/26/22 11:00: Sodium 141, Potassium 4.0, Chloride 109 H, Carbon Dioxide 24, Anion Gap 12.0, BUN 30 H, Creatinine 1.40 H, Estimated Creat Clear 43, Estimated GFR 48 L, Est GFR ( Amer) 59, Glucose 68 L D, Calcium 9.1, Total Bilirubin 1.6 H, AST 125 H, ALT 150 H, Alkaline Phosphatase 149 H, Total Protein 6.3, Albumin 3.5, Globulin 2.8, Albumin/Globulin Ratio 1.3 09/26/22 12:09: POC Glucose 69 L 09/26/22 17:49: POC Glucose 61 L 09/26/22 19:57: POC Glucose 63 L 09/26/22 20:27: POC Glucose 167 H 09/26/22 23:26: POC Glucose 111 H 09/27/22 05:37: POC Glucose 60 L 09/27/22 06:23: POC Glucose 160 H I & O for Last 24 hours: Intake & Output 09/24/22 09/25/22 09/26/22 09/27/22 11:59 11:59 11:59 11:59 Intake Total 500 / 500 1600 / 1600 0 / 0 Output Total 960 / 960 0 / 0 0 / 0 Balance -460 / -460 1600 / 1600 0 / 0 Weight 166 lb 165 lb 15.988 oz 166 lb 4 oz 163 lb Constitutional Constitutional: agitated *Routine Respiratory Exam Respiratory: Present CTA bilaterally *Routine Cardiovascular Exam Cardiovascular: Present RRR Progress Note: A&P Assessment and plan (1) Anemia: Status: Acute (2) CHF (congestive heart failure): Status: Acute (3) DM type 2 (diabetes mellitus, type 2): Status: Acute (4) Elevated liver enzymes: Status: Acute (5) Pericardial effusion after operative procedure: Status: Acute Assessment and Plan Assessment and Plan for All Diagnoses:: 1.? CAD with coronary stenting to LAD and RCA.? Continue dual antiplatelet therapy with aspirin and Plavix (rectally if not taking oral).? Normal LV function by echo. 2.? Pericardial effusion post procedure, status post pericardiocentesis with significant improvement in pericardial effusion.? Patient removed pericardial drain during confusion.?Hgb stable after transfusion this admission. Limited echo yesterday showed stable, small effusion. 3.? Dementia with agitation which complicates all aspects of his care. Received Ativan in 09/25/22 and Zyprexa last evening. 4.? Diabetes mellitus, per hospitalist. Meformin stopped this admission with blood sugars normal with intermittent low readings. 5.? Elevated LFTs, improved 6.? Hypertension with tachycardia, unable to give oral meds at this time. Restart PRN metoprolol IV. 7.? Anemia, stable 8.? 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 9. Mild FAWN improved, but not taking oral fluids. Getting IVF at 75 ml/hr D5W currently. Do not give any further sedating meds. Trying to get him back to his baseline and awake enought to eat.
--- NOTE | 2022-09-27 09:44 | PC.NURSE ---
pt refused O2 sat
[2022-09-27 09:49] LABS: Basophils # 0.1 K/mm3 (0-0.2); Basophils % 0.5 % (0.1-2.0); Eosinophils # 0.3 K/mm3 (0.0-0.4); Eosinophils % 2.4 % (0.1-12.0); Hematocrit 30.4 % (42.0-52.0); Lymphocytes # 1.1 K/mm3 (0.7-4.5); Lymphocytes % 10.1 % (10-50); Mean Corpuscular HGB Conc 32.8 g/dL (31.8-35.4); Mean Corpuscular Volume 91.5 fl (80-94); Monocytes # 0.4 K/mm3 (0.1-1.0); Monocytes % 3.6 % (1.7-9.3); Neutrophils # 9.3 K/mm3 (1.8-7.8); Neutrophils % 83.5 % (37.0-80.0); Platelet Count 361 K/mm3 (142-424); Red Blood Count 3.32 M/mm3 (4.60-6.20); Red Cell Distribution Width 20.8 % (11.5-17.5); White Blood Count 11.1 K/mm3 (4.8-10.8)
[2022-09-27 09:53] LABS: Alanine Aminotransferase 207 U/L (12-78); Albumin Level 3.3 g/dl (3.5-5.0); Albumin/Globulin Ratio 1.1 (1.1-1.8); Alkaline Phosphatase 149 U/L (38-126); Aspartate Amino Transferase 185 U/L (17-59); Bilirubin,Total 2.4 mg/dl (0.2-1.3); Blood Urea Nitrogen 29 mg/dl (9-20); Calcium 9.1 mg/dl (8.4-10.2); Carbon Dioxide 23 mmol/L (22.0-30.0); Chloride 110 mmol/L (98-107); Creatine Kinase 447 U/L (55-170); Creatinine Clearance Estimated 49 mL/min (50-200); Estimated Glomerular Filt Rate 58 ml/min (>60); GFR (African American) 70 ML/MIN (>60); Gamma Glutamyl Transpeptidase 112 U/L (15-73); Glucose 124 mg/dl (74-100); Sodium 141 mmol/L (136-145); Total Protein,Serum 6.3 g/dl (6.3-8.2)
[2022-09-27 09:57] LABS: Anion Gap 11.5 mEq/L (5-15); Potassium 3.5 mmoL/L (3.5-5.1)
[2022-09-27 11:58] LABS: POC Glucose,Bedside 131 (70-110)
[2022-09-27 12:00] VITALS: BP 153/59; PULSE 116; RESP 24; TEMP 37.2
--- NOTE | 2022-09-27 14:52 | PC.NURSE ---
refused O2 sat
--- NOTE | 2022-09-27 14:53 | PC.NURSE ---
one unmeasured void
[2022-09-27 16:00] VITALS: BP 148/83; PULSE 103
--- NOTE | 2022-09-27 16:28 | EXP.PN ---
Subjective *Date: 09/27/22 *Time: 16:28 Exam Data for Last 24 hours Vital signs and Labs for Last 24 Hours: Temp Pulse Resp BP Pulse Ox 99.0 F 116 H 24 153/59 H 89 L 09/27/22 12:00 09/27/22 12:00 09/27/22 12:00 09/27/22 12:00 09/27/22 04:00 Laboratory Results - last 24 hr 09/24/22 15:57: Crossmatch (AHG) See Detail 09/26/22 17:49: POC Glucose 61 L 09/26/22 19:57: POC Glucose 63 L 09/26/22 20:27: POC Glucose 167 H 09/26/22 23:26: POC Glucose 111 H 09/27/22 05:37: POC Glucose 60 L 09/27/22 06:23: POC Glucose 160 H 09/27/22 09:35: GGT 112 H, Total Creatine Kinase 447 H D 09/27/22 09:35: WBC 11.1 H D, RBC 3.32 L, Hgb 10.0 L, Hct 30.4 L, MCV 91.5, MCH 30.0, MCHC 32.8, RDW 20.8 H, Plt Count 361, MPV 10.0, Neut % (Auto) 83.5 H, Lymph % (Auto) 10.1, [place] % (Auto) 3.6, Eos % (Auto) 2.4, Baso % (Auto) 0.5, Neut # (Auto) 9.3 H, Lymph # (Auto) 1.1, [place] # (Auto) 0.4, Eos # (Auto) 0.3, Baso # (Auto) 0.1 09/27/22 09:35: Sodium 141, Potassium 3.5, Chloride 110 H, Carbon Dioxide 23, Anion Gap 11.5, BUN 29 H, Creatinine 1.20, Estimated Creat Clear 49, Estimated GFR 58 L, Est GFR ( Amer) 70, Glucose 124 H D, Calcium 9.1, Total Bilirubin 2.4 H, AST 185 H D, ALT 207 H D, Alkaline Phosphatase 149 H, Total Protein 6.3, Albumin 3.3 L, Globulin 3.0, Albumin/Globulin Ratio 1.1 09/27/22 11:32: POC Glucose 131 H I & O for Last 24 hours: Intake & Output 09/24/22 09/25/22 09/26/22 09/27/22 23:59 23:59 23:59 23:59 Intake Total 250 / 250 250 / 250 1600 / 1600 Output Total 740 / 740 220 / 220 0 / 0 0 / 0 Balance -490 / -490 1600 / 1600 0 / 0 Weight 75.296 kg 75.296 kg 75 kg 73.936 kg Assessment and Plan *Assessment and plan (1) Anemia: Status: Acute Qualifiers: Anemia type: unspecified type Qualified Code(s): D64.9 - Anemia, unspecified Category: Medical Code(s): D64.9 - Anemia, unspecified (2) CHF (congestive heart failure): Status: Acute Category: Medical Code(s): I50.9 - Heart failure, unspecified (3) DM type 2 (diabetes mellitus, type 2): Status: Acute Category: Medical Code(s): E11.9 - Type 2 diabetes mellitus without complications (4) Elevated liver enzymes: Status: Acute Category: Medical Code(s): R74.8 - Abnormal levels of other serum enzymes (5) Pericardial effusion after operative procedure: Status: Acute Category: Medical Code(s): I97.89 - Other postprocedural complications and disorders of the circulatory system, not elsewhere classified; I31.39 - Other pericardial effusion (noninflammatory) (6) Perforation of coronary artery: Status: Acute Category: Medical Code(s): T81.718A - Complication of other artery following a procedure, not elsewhere classified, initial encounter (7) Status post left heart catheterization: Status: Acute Category: Medical Code(s): Z98.890 - Other specified postprocedural states (8) Dementia: Status: Acute Category: Medical Code(s): F03.90 - Unspecified dementia, unspecified severity, without behavioral disturbance, psychotic disturbance, mood disturbance, and anxiety (9) Transaminitis: Status: Acute Category: Medical Code(s): R74.01 - Elevation of levels of liver transaminase levels Plan Patient is an 81-year-old male with past medical history of coronary artery disease, hypertension, type 2 diabetes, and hypothyroidism who is admitted to the medical floor status post left heart cath on 09/24 with perforation of a coronary artery causing a pericardial effusion. Stents were placed in the proximal LAD and the right coronary artery. Patient had a pericardial effusion that was drained and a pigtail catheter remaining to drain any residual pericardial effusion, however this was pulled out by patient when he was confused. //Pericardial Effusion - Repeat ECHO suggests this is stable/improved d
--- NOTE | 2022-09-27 16:42 | PC.NURSE ---
one unmeasured void
[2022-09-27 18:03] LABS: POC Glucose,Bedside 201 (70-110)
[2022-09-27 20:00] VITALS: BP 126/89; PULSE 90; RESP 17; O2SAT 94
--- NOTE | 2022-09-27 20:17 | PC.NURSE ---
Patient combative and uncooperative for majority of shift but at 1730 was able to sit patient up in bed and he drank a diet pepsi. Patient was able to eat a spoonful of pudding as well. Patient still confused and only alert to self but able to follow commands and answer simple questions. Patient also able to use urinal. Patient would not keep heart monitor on and would get combative and agitated when trying to reapply leads, Dr. Shaffer aware. VS stable.
[2022-09-28 01:48] LABS: POC Glucose,Bedside 97 (70-110)
[2022-09-28 01:48] LABS: POC Glucose,Bedside 82 (70-110)
--- NOTE | 2022-09-28 01:57 | PC.NURSE ---
Spoke with Dr Molina @[id number] at this in regards to pts care and recent BGLs. FSBS at 2100- 97. Discussed with Dr. Molina this RN would recheck FSBS t/o the night d/t prior hypoglycemia. Orders received: If FSBS>140 when rechecked, decrease D5W to 50 ml/hr. If FSBS decreases, notify hospitalist for order of an amp of D50. At 0127 FSBS- 82. Hospitalist notified. Orders received for 1 amp D50 and will be carried out at this time.
[2022-09-28 04:00] VITALS: BP 138/63; PULSE 101; RESP 22; TEMP 36.8; O2SAT 98; BMI 23.4
[2022-09-28 05:29] LABS: POC Glucose,Bedside 116 (70-110)
--- NOTE | 2022-09-28 06:19 | PC.NURSE ---
Pt has not urinated this shift. Pt unable to use urinal with assistance this morning. Bladder scan obtained and reads >422 ml urine. Spoke with Dr Molina at this time. States to let pt wake up and try to urinate and if pt has not urinated by 12:00 today, to anchor sharma catheter.
[2022-09-28 07:47] LABS: Basophils % 0.4 % (0.1-2.0); Eosinophils # 0.2 K/mm3 (0.0-0.4); Eosinophils % 2.5 % (0.1-12.0); Hematocrit 28.3 % (42.0-52.0); Hemoglobin 9.1 g/dL (14.1-18.0); Lymphocytes # 1.3 K/mm3 (0.7-4.5); Mean Corpuscular HGB Conc 32.3 g/dL (31.8-35.4); Mean Corpuscular Hemoglobin 30.1 pg (27.0-31.2); Mean Corpuscular Volume 93.2 fl (80-94); Mean Platelet Volume 9.3 fl (7.4-10.4); Monocytes # 0.4 K/mm3 (0.1-1.0); Monocytes % 4.9 % (1.7-9.3); Neutrophils # 6.1 K/mm3 (1.8-7.8); Neutrophils % 76.1 % (37.0-80.0); Platelet Count 447 K/mm3 (142-424); Red Blood Count 3.04 M/mm3 (4.60-6.20); Red Cell Distribution Width 20.4 % (11.5-17.5)
--- NOTE | 2022-09-28 07:49 | EXP.ACUTE.PN ---
Subjective *Date: 09/28/22 *Time: 09:47 Interval history: Stable overnight. Tolerating room air. Awake and alert this morning. Oriented to person only. Keeps asking for his . Refusing meds. Ambulating with minimal assist to bathroom to void on exam. Seated in bedside chair. Denies chest pain, nausea, vomiting. Medical Exam Vital signs and Labs for Last 24 Hours: Vital Signs Temp Pulse Resp BP Pulse Ox 09/28/22 04:00 98.3 F 101 H 22 138/63 98 09/27/22 20:00 90 17 126/89 94 L 09/27/22 16:00 103 H 148/83 H 09/27/22 12:00 99.0 F 116 H 24 153/59 H 09/27/22 08:00 97.0 F L 123 H 24 140/81 Intake and Output 09/27/22 09/27/22 09/28/22 15:59 23:59 07:59 Output Total 0 / 350 350 / 350 Balance 0 / -350 -350 / -350 Output: Output, Urine Amount 0 / 350 350 / 350 Other: Number of Unmeasured Voids 1 1 Weight 75.977 kg Patient Weight 09/28/22 23:59 Weight 75.977 kg Laboratory Results - last 24 hr 09/24/22 15:57: Crossmatch (AHG) See Detail 09/27/22 09:35: GGT 112 H, Total Creatine Kinase 447 H D 09/27/22 09:35: WBC 11.1 H D, RBC 3.32 L, Hgb 10.0 L, Hct 30.4 L, MCV 91.5, MCH 30.0, MCHC 32.8, RDW 20.8 H, Plt Count 361, MPV 10.0, Neut % (Auto) 83.5 H, Lymph % (Auto) 10.1, [place] % (Auto) 3.6, Eos % (Auto) 2.4, Baso % (Auto) 0.5, Neut # (Auto) 9.3 H, Lymph # (Auto) 1.1, [place] # (Auto) 0.4, Eos # (Auto) 0.3, Baso # (Auto) 0.1 09/27/22 09:35: Sodium 141, Potassium 3.5, Chloride 110 H, Carbon Dioxide 23, Anion Gap 11.5, BUN 29 H, Creatinine 1.20, Estimated Creat Clear 49, Estimated GFR 58 L, Est GFR ( Amer) 70, Glucose 124 H D, Calcium 9.1, Total Bilirubin 2.4 H, AST 185 H D, ALT 207 H D, Alkaline Phosphatase 149 H, Total Protein 6.3, Albumin 3.3 L, Globulin 3.0, Albumin/Globulin Ratio 1.1 09/27/22 11:32: POC Glucose 131 H 09/27/22 17:56: POC Glucose 201 H 09/27/22 21:06: POC Glucose 97 09/28/22 01:27: POC Glucose 82 09/28/22 05:23: POC Glucose 116 H 09/28/22 07:06: WBC 8.0 D, RBC 3.04 L, Hgb 9.1 L, Hct 28.3 L, MCV 93.2, MCH 30.1, MCHC 32.3, RDW 20.4 H, Plt Count 447 H, MPV 9.3, Neut % (Auto) 76.1, Lymph % (Auto) 16.0, [place] % (Auto) 4.9, Eos % (Auto) 2.5, Baso % (Auto) 0.4, Neut # (Auto) 6.1, Lymph # (Auto) 1.3, [place] # (Auto) 0.4, Eos # (Auto) 0.2, Baso # (Auto) 0.0 I & O for Labs for Last 24 Hours: Intake & Output 09/25/22 09/26/22 09/27/22 09/28/22 23:59 23:59 23:59 23:59 Intake Total 250 / 250 1600 / 1600 Output Total 220 / 220 0 / 0 350 / 350 Balance 1600 / 1600 -350 / -350 Weight 75.296 kg 75 kg 73.936 kg 75.977 kg Constitutional: Present no acute distress, average body habitus and chronically ill appearing Head: Present atraumatic and normocephalic ENT: Present normal exam Neck: Present normal inspection and trachea midline Respiratory: Present normal respiratory effort; Absent accessory muscle use, rhonchi, wheezes or crackles Cardiac: Present Reg Rate and Rhythm; Absent No Murmur GI: Present soft and normal bowel sounds; Absent distention or tenderness Extremities: Present normal inspection and full ROM Skin: Present intact; Absent erythema Neuro: Present Grossly Intact, alert, awake and moves all extremities Comment:: Oriented to self only, asking for , noncombative today. Assessment and Plan *Assessment and plan (1) Dementia: Status: Acute Category: Medical Code(s): F03.90 - Unspecified dementia, unspecified severity, without behavioral disturbance, psychotic disturbance, mood disturbance, and anxiety (2) CAD (coronary artery disease): Status: Acute Category: Medical Code(s): I25.10 - Atherosclerotic heart disease of [place] coronary artery without angina pectoris (3) CHF (congestive heart failure): Status: Acute Category: Medical Code(s): I50.9 - Heart failure, unspecified (4) DM type 2 (diabetes mellitus, type 2): Status: Acute Category: Medical Code(s): E11.
[2022-09-28 08:00] VITALS: BP 149/76; PULSE 88; RESP 18; TEMP 36.7; O2SAT 96
[2022-09-28 08:02] LABS: Chloride 112 mmol/L (98-107); Potassium 3.6 mmoL/L (3.5-5.1); Sodium 143 mmol/L (136-145)
[2022-09-28 08:05] LABS: Alanine Aminotransferase 172 U/L (12-78); Albumin Level 3.1 g/dl (3.5-5.0); Albumin/Globulin Ratio 1.1 (1.1-1.8); Alkaline Phosphatase 102 U/L (38-126); Anion Gap 9.6 mEq/L (5-15); Aspartate Amino Transferase 125 U/L (17-59); Bilirubin,Total 2.1 mg/dl (0.2-1.3); Blood Urea Nitrogen 16 mg/dl (9-20); Carbon Dioxide 25 mmol/L (22.0-30.0); Creatinine Clearance Estimated 60 mL/min (50-200); Estimated Glomerular Filt Rate 71 ml/min (>60); GFR (African American) 86 ML/MIN (>60); Globulin 2.8 g/dL (1.3-3.2); Total Protein,Serum 5.9 g/dl (6.3-8.2)
[2022-09-28 08:06] LABS: Calcium 8.7 mg/dl (8.4-10.2); Glucose 91 mg/dl (74-100)
[2022-09-28 08:11] LABS: Creatine Kinase 518 U/L (55-170)
[2022-09-28 08:12] LABS: Magnesium 1.5 mg/dl (1.6-2.3)
--- NOTE | 2022-09-28 09:50 | PC.NURSE ---
Pt refusing to take morning medications at this time.
--- NOTE | 2022-09-28 11:11 | EXP.DC.SUM ---
General Admission date:: 09/24/22 HPI HPI HPI: Patient is an 81-year-old male with past medical history of coronary artery disease, hypertension, type 2 diabetes, and hypothyroidism who is admitted to the medical floor status post left heart cath earlier today. Stents were placed in the proximal LAD and the right coronary artery. Patient had a pericardial effusion that was drained by Dr. Shaffer with a pigtail catheter remaining to drain any residual pericardial effusion. Patient became hypotensive during left heart cath and was given Solu-Medrol 125 IV. Blood sugars were noted to be significantly elevated and hemoglobin dropped from 9.4-8.1. Patient will be admitted to the medical floor, Dr. Shaffer has ordered 2 units of packed red blood cells for transfusion and a repeat echo tomorrow morning to assess pericardial effusion. Hospital Course Hospital Course Hospital Course: Patient is an 81-year-old male with past medical history of coronary artery disease, hypertension, type 2 diabetes, and hypothyroidism who is admitted to the medical floor status post left heart cath on 09/24 with perforation of a coronary artery causing a pericardial effusion, resolving.? Stents were placed in the proximal LAD and the right coronary artery.? Patient had a pericardial effusion that was drained and a pigtail catheter remaining to drain any residual pericardial effusion, however this was pulled out by patient when he was confused. Repeat Echo with stable effusion. Continues to have sundowning in the evenings however mentation improved on day of discharge.? Problems addressed as follows: CAD Pericardial effusion Hypertension -Cardiology consulted, appreciate their recommendations. Received outpatient cath, had stents to LAD and RCA with cath 09/24. Sustained perforation as above. Pericardial effusion drained initially, self removal of pigtail by patient. Pericardial effusion stable however on repeat imaging. No further pericardiocentesis planned. Echo with normal LV function. Continuing dual antiplatelet therapy with Plavix and aspirin. Tolerating oral medication. Stable for discharge home. Dementia Lar[place] - Complicates all aspects of his care. Confusion initially treated with Zyprexa and Ativan, patient improved after holding these medications. Continued reorientation and addressing day/night routine. Family evaluated patient on day of discharge, feel that he is at baseline enough to go home and they are comfortable caring for him at home. I would agree that being in the home setting will help with his orientation and continued improvement in mentation. DM 2 vs hyperglycemia/prediabetes - A1c 6.4 on 09/24/22. Initially treated with insulin due to glucose of approximately 600. Held insulin for remainder of visit as he developed some hypoglycemia. Required some dextrose infusions due to poor p.o. intake initially. Glucose has normalized. Recommend holding all diabetes medications until evaluated in the outpatient setting. Anemia - Pt transfused 2 units on 09/24. Hemoglobin remained stable. No further signs of bleeding. Transaminitis, improving CK, slight increase -Concern for secondary to immobility and medication side effect. Held statin. Showing improvement on day of discharge. Resume statin in the outpatient setting once LFTs normalize. COVID -Positive on admission.? Has had multiple positives with an intermittent negative over the past 6 months. This may be a factor in some confusion, however has no respiratory symptoms.? No treatment indicated at this time. Ambulating with minimal assistance. Family comfortable taking patient home. Tolerating oral intake and medications. Stable on room air. Meeting criteria for discharge home. Exam Data for Last 24 hours Vital signs and Labs for Last 24 Hours: Temp Pulse Resp BP Pulse Ox 98.0 F 88 18 149/76 H 96 09/28/22 08:00 09/28/22 08:00 09/28/22 08:00 09/28/22 08:00
[2022-09-28 11:36] LABS: POC Glucose,Bedside 104 (70-110)
[2022-09-28 11:37] VITALS: BP 145/77; PULSE 86; RESP 18; TEMP 37.1; O2SAT 98
--- NOTE | 2022-09-28 13:34 | PC.NURSE ---
Spoke with hitesh about situation prior to D/C. He stated that if family felt as though they could handle taking him home he was okay with continuing with d/c. Family stated that they were find taking him and and wanted too.
--- NOTE | 2022-09-28 13:42 | HMH.PHACL ---
[facility] [employer] Discharge Med Gunner'S Mate: Tory Morales has received discharge medication counseling on the following medications: CHANGED BRILINTA TO CLOPIDOGREL 75 MG DAILY ON DISCHARGE. FILLED AT CLINIC.
== END 2022-09-28 13:52 | disposition home or self-care (01) | DRG 246 ==
LOC: 2ND 15:17
PROVIDERS: Internal Medicine; Internal Medicine Adolescent Medicine; Nurse Practitioner Acute Care; Admitting Provider Emergency Medicine; PCP Internal Medicine Adolescent Medicine; Visit Provider Emergency Medicine
PROC: 027136Z Dilation of Coronary Artery, Two Arteries with Three Drug-eluting Intraluminal Devices, Percutaneous Approach (ICD-10-PCS; principal; 2022-09-24 08:45)
DX: I97.89 Other postprocedural complications and disorders of the circulatory system, not elsewhere classified (principal); U07.1 COVID-19; I31.39 Other pericardial effusion (noninflammatory); N17.9 Acute kidney failure, unspecified; F05 Delirium due to known physiological condition; I11.0 Hypertensive heart disease with heart failure; I50.9 Heart failure, unspecified; I25.118 Atherosclerotic heart disease of native coronary artery with other forms of angina pectoris; Z87.891 Personal history of nicotine dependence; Z95.5 Presence of coronary angioplasty implant and graft; F03.90 Unspecified dementia, unspecified severity, without behavioral disturbance, psychotic disturbance, mood disturbance, and anxiety; D64.9 Anemia, unspecified; E11.65 Type 2 diabetes mellitus with hyperglycemia; Y83.1 Surgical operation with implant of artificial internal device as the cause of abnormal reaction of the patient, or of later complication, without mention of misadventure at the time of the procedure; I95.89 Other hypotension; I25.2 Old myocardial infarction
CPT/HCPCS: 33017; C9600 ×2; 33010; 36415; 71045; 80048; 80053; 82009; 82550; 82962; 82977; 83036; 83605; 83735; 85007; 85025; 85347; 86850; 92928; 93306; 93308; 93458; 99152; 99153; C1725; C1761; C1769; C1876; C9803; J1644; P9016; Q9967; U0003; U0005

== ENCOUNTER 2022-09-30 00:10 | Inpatient (IN) | payer MEDICARE, SELFPAY ==
[2022-09-30] VITALS (43 sets, daily range): BP systolic 79–190; BP diastolic 42–120; PULSE 61–111; RESP 17–24; TEMP 36.4–39.7; O2SAT 93–100; BMI 22.9; BMI 23.6
--- NOTE | 2022-09-30 | CT_ITS ---
PROCEDURE INFORMATION: Exam: CT Maxillofacial Without Contrast Exam date and time: 09/30/2022 5:32 PM Age: 81 years old Clinical indication: Mass, lump, or swelling; Location not specified; Additional info: Facial swelling, infection TECHNIQUE: Imaging protocol: Computed tomography of the face without contrast. Radiation optimization: All CT scans at this facility use at least one of these dose optimization techniques: automated exposure control; mA and/or kV adjustment per patient size (includes targeted exams where dose is matched to clinical indication); or iterative reconstruction. COMPARISON: CT HEAD/BRAIN WO CON 09/30/2022 5:30 PM FINDINGS: Tubes, catheters and devices: There is an ET and NG tube partially visualized. Orbital cavities: Orbits are normal. Globes are unremarkable. Bones/joints: No fracture, deformity or osteolytic/destructive bone changes. Paranasal sinuses: There is mild mucosal thickening involving the floor the right maxillary sinus and allison of the left maxillary sinus secondary to chronic sinusitis. There is minimal mucosal thickening along the floor of the frontal sinuses bilaterally. Remaining paranasal sinuses are clear. Soft tissues: There is diffuse soft tissue swelling on the right side of the face and asymmetric enlargement of the right parotid gland better demonstrated on CT examination of the neck. Dental: Maxillary alveolar ridge is edentulous. There is anterior translation of the mandibular head in relation to the condylar fossa bilaterally likely related to patient's open-mouth position. IMPRESSION: 1. Mild mucosal thickening involving the maxillary sinuses and to lesser extent floor of the frontal sinus. No discrete masses or fluid levels. 2. Nonspecific soft tissue swelling along the right side of the face and asymmetric and margin of the right parotid gland. Please refer to CT examination of the neck.
--- NOTE | 2022-09-30 00:22 | XR_ITS ---
PROCEDURE INFORMATION: Exam: XR Chest Exam date and time: 09/30/2022 12:56 AM Age: 81 years old Clinical indication: Fever TECHNIQUE: Imaging protocol: Radiologic exam of the chest. Views: 1 view. COMPARISON: CR (CHEST, CXR AP LANDSCAPE) 09/26/2022 12:20 AM FINDINGS: Limitations: Evaluation is limited by patient rotation. Lungs: The lungs are adequately inflated. No focal consolidation. Pleural spaces: Suggestion of small pleural effusion. No pneumothorax. Heart/Mediastinum: The cardiac silhouette appears mildly enlarged, likely accentuated by technique. Vasculature: Arthrosclerotic calcifications of the aorta. Bones/joints: No displaced fracture. Intraperitoneal space: The visualized abdomen is unremarkable. IMPRESSION: 1. Suggestion of small left pleural effusion. 2. No focal pneumonia.
[2022-09-30 00:42] LABS: Basophils % 0.2 % (0.1-2.0); Eosinophils # 0.4 K/mm3 (0.0-0.4); Eosinophils % 1.8 % (0.1-12.0); Hematocrit 30.5 % (42.0-52.0); Hemoglobin 9.7 g/dL (14.1-18.0); Lymphocytes # 0.7 K/mm3 (0.7-4.5); Lymphocytes % 3.5 % (10-50); Mean Corpuscular Hemoglobin 30.1 pg (27.0-31.2); Mean Corpuscular Volume 94.3 fl (80-94); Mean Platelet Volume 9.1 fl (7.4-10.4); Monocytes # 0.3 K/mm3 (0.1-1.0); Monocytes % 1.7 % (1.7-9.3); Neutrophils # 17.7 K/mm3 (1.8-7.8); Neutrophils % 92.9 % (37.0-80.0); Platelet Count 566 K/mm3 (142-424); Red Blood Count 3.23 M/mm3 (4.60-6.20); Red Cell Distribution Width 20.5 % (11.5-17.5)
[2022-09-30 00:45] LABS: MANUAL DIFFERENTIAL MANUAL DIFFERENTIAL (MANUAL DIFF)
[2022-09-30 00:52] LABS: Alanine Aminotransferase 121 U/L (12-78); Albumin Level 3.9 g/dl (3.5-5.0); Albumin/Globulin Ratio 1.1 (1.1-1.8); Alkaline Phosphatase 112 U/L (38-126); Anion Gap 11.7 mEq/L (5-15); Aspartate Amino Transferase 49 U/L (17-59); Bilirubin,Total 1.7 mg/dl (0.2-1.3); Blood Urea Nitrogen 14 mg/dl (9-20); Calcium 8.9 mg/dl (8.4-10.2); Carbon Dioxide 24 mmol/L (22.0-30.0); Chloride 106 mmol/L (98-107); Creatinine Clearance Estimated 48 mL/min (50-200); Estimated Glomerular Filt Rate 58 ml/min (>60); GFR (African American) 70 ML/MIN (>60); Globulin 3.4 g/dL (1.3-3.2); Glucose 213 mg/dl (74-100); Potassium 3.7 mmoL/L (3.5-5.1); Sodium 138 mmol/L (136-145); Total Protein,Serum 7.3 g/dl (6.3-8.2)
[2022-09-30 00:58] LABS: Lactic Acid 2.1 mmol/L (0.7-2.1)
--- NOTE | 2022-09-30 00:59 | CT_ITS ---
PROCEDURE INFORMATION: Exam: CT Neck With Contrast Exam date and time: 09/30/2022 1:28 AM Age: 81 years old Clinical indication: Mass, lump, or swelling in neck; Right TECHNIQUE: Imaging protocol: Computed tomography of the neck with contrast. Radiation optimization: All CT scans at this facility use at least one of these dose optimization techniques: automated exposure control; mA and/or kV adjustment per patient size (includes targeted exams where dose is matched to clinical indication); or iterative reconstruction. Contrast material: ISOVUE; Contrast volume: 75 ml; Contrast route: IV; COMPARISON: CT CERVICAL SPINE WO CON 08/15/2019 7:37 PM FINDINGS: Paranasal sinuses: Mucosal thickening mild opacification of the bilateral maxillary sinuses. Pharynx: No significant tonsillar enlargement. Larynx: Epiglottis is normal. Prevertebral and retropharyngeal spaces: Unremarkable. Salivary glands: Asymmetric enlargement and hyperattenuation the of the right parotid gland in comparison to the left. Thyroid: Normal. No enlarged or calcified nodules. Lymph nodes: Multiple prominent level 2 lymph nodes. Trachea: Visualized trachea is unremarkable. Lungs: Unremarkable as visualized. Bones/joints: Multilevel degenerative type changes of the spine. No acute osseous abnormality. Soft tissues: There is mild soft tissue involving the right inspector boiler space, parotid space, and superficially extending to the level of the clavicle. IMPRESSION: Imaging findings are concerning for right-sided acute parotitis. Recommend correlation with history/physical exam.
[2022-09-30 01:01] LABS: Anisocytosis 3+; Lymphocytes % 7 % (10-50); Neutrophils % 83 % (42-76); Platelet Estimate Moderate Increase; Total Cells Counted 100
--- NOTE | 2022-09-30 02:04 | HMH.EDSKAF ---
Discharge Plan Disposition Patient Disposition: Admitted As Inpatient Chief Complaint: Skin/Abscess/Foreign Body Prescriptions Prescriptions: No Action metformin 1,000 MG tablet 1,000 mg PO BID Hold Instructions: Resume on 09/26/22. hold for two days levothyroxine 112 MCG tablet 112 mcg PO DAILY gabapentin 400 mg Tablet 400 mg PO BID aspirin [[place] Low Dose Aspirin] 81 mg Tablet,Delayed Release (Dr/Ec) 81 mg PO DAILY Qty: 30 2RF atorvastatin 40 mg tablet 40 mg PO HS metoprolol succinate 50 mg tablet extended release 24 hr 50 mg PO DAILY clopidogrel 75 mg tablet 75 mg PO DAILY Referrals Follow up/Referrals: Santos Nassar MD [Primary Care Provider] - See instructions Clinical Impressions Clinical Impression: Acute parotitis, Severe sepsis with acute organ dysfunction, DM type 2 (diabetes mellitus, type 2), CAD (coronary artery disease) Instructions Patient Instructions: DI for Skin Abscess Discharge ED Provider: Abhinav Warner Skin/Abscess/FB HPI General Chief complaint: Skin/Abscess/Foreign Body Stated complaint: abscess Time Seen by Provider: 09/30/22 02:04 Mode of Arrival: EMS Source of Information: Patient and Relative Limitations: No Limitations Description of Symptoms (Recalled from ER Triage Doc. by RN): Per son pt had swelling rt jaw that started today History of Present Illness HPI narrative: pt with acute rt facial swelling and assoc fever - recent admit with cad and had pericardial aspiration - pt with hx of covid-19 complaint: other (fever and swollen rt facial area ) Onset (ago): day(s) Tetanus up to date: unsure Severity: moderate Associated symptoms: denies other symptoms Related Data Home Medications Medication Instructions Recorded Confirmed levothyroxine 112 mcg tablet 112 mcg PO DAILY hypothyroidism 08/15/19 09/30/22 metformin 1,000 mg tablet 1,000 mg PO BID Diabetes 08/15/19 09/30/22 gabapentin 400 mg tablet 400 mg PO BID Pain 09/16/22 09/30/22 atorvastatin 40 mg tablet 40 mg PO HS High cholesterol 09/30/22 09/30/22 clopidogrel 75 mg tablet 75 mg PO DAILY Blood thinner 09/30/22 09/30/22 metoprolol succinate 50 mg 50 mg PO DAILY High blood pressure 09/30/22 09/30/22 tablet,extended release 24 hr Previous Rx's Medication Instructions Recorded aspirin 81 mg tablet,delayed 81 mg PO DAILY CAD #30 tabs 09/24/22 release ([place] Low Dose Aspirin) Allergies Allergy/AdvReac Type Severity Reaction Status Date / Time iodine Allergy Severe S-SWELLS-OR Verified 09/16/22 13:32 AL/THROAT shellfish derived Allergy Intermediate I-HIVES Verified 09/16/22 13:32 [From SHELLFISH (FOOD/DRUG)] From SHELLFISH (FOOD/DRUG) Allergy Intermediate I-HIVES Uncoded 09/16/22 13:32 [facility] Disclaimer: The information contained in this section may have been updated after the patient was seen, as this information can be updated by other users. Medical History (Updated 09/30/22 @ 03:22 by Abhinav Warner MD) Abnormal electrocardiogram [ECG] [EKG] Diabetes mellitus Dyspnea Family History (Updated 09/24/22 @ 09:45 by Mary Cotton RN) No significant family history Social History (Updated 09/24/22 @ 16:08 by Gadiel Goodson CRNA) Smoking Status: Heavy tobacco smoker alcohol intake: current substance use type: denies use current occupational status: retired Travel in the last 8 weeks: [place] the [place] ROS Obtained: Yes All systems reviewed & no additional complaints except as documented Physical Exam General General appearance: alert Head Head exam: normocephalic Eye Eye exam: Present PERRL and EOMI ENT ENT exam: Present mucous membranes moist and other (tender rt parotid gland ) Neck Neck exam: Present trachea midline and other (some swelling rt neck ); Absent meningismus Respiratory Respiratory exam: Present normal lung sounds bilaterally; Absent respiratory distress Cardiovascular Cardiov
[2022-09-30 02:15] LABS: Influenza A, PCR Not Detected (NotDetected); Influenza B, PCR Not Detected (NotDetected)
[2022-09-30 02:39] LABS: Coronavirus 19, PCR Detected (NotDetected)
[2022-09-30 03:06] LABS: Acetone, Serum (Rapid) None Detected (None Detect)
[2022-09-30 03:12] LABS: Amylase 136 U/L (30-110); Lipase 93 U/L (23-300)
[2022-09-30 03:19] LABS: Microscopic, Urine URINE MICROSCOPIC (MICROSCOPIC)
[2022-09-30 03:20] LABS: Appearance,Urine CLEAR (Clear); Bilirubin,Urine Negative (Negative); Blood, Urine Negative (Negative); Color,Urine YELLOW (Yellow); Glucose,Urine (UA) TRACE (Negative); Ketones,Urine Negative (Negative); Leukocyte Esterase,Urine Negative (Negative); Nitrate,Urine Negative (Negative); PH,Urine 5.5 (5.0-8.5); Protein,Urine Negative (Negative)
[2022-09-30 03:24] LABS: Squamous Epithelial Cell,Urine Occasional #/hpf (0-5); WBC,Urine Occasional #/hpf (0-3)
--- NOTE | 2022-09-30 04:27 | EXP.HP ---
History of Present Illness *Admission Date: 09/30/22 *Reason for visit:: parotitis *History of present illness: 81-year-old man who was recently discharged from the hospital s/p stents to proximal LAD and RCA with pericardial effusion who is brought to the emergency department by family who is at bedside. History is unable to be obtained due to acute delirium by patient. They have noticed today that his right side of his face has been swelling. He has been having difficulty talking. They were concerned about it obstructing his airway so they brought him to the emergency department. No other history is able to be obtained. [facility] Disclaimer: The information contained in this section may have been updated after the patient was seen, as this information can be updated by other users. Medical History Abnormal electrocardiogram [ECG] [EKG] Diabetes mellitus Dyspnea Family History Other No significant family history Social History Smoking Status: Heavy tobacco smoker alcohol intake: current substance use type: denies use current occupational status: retired Travel in the last 8 weeks: Inside the [place] Review of Systems Review of Systems Review of systems:: unable to obtain Meds Home Medications and Allergies Home Medications Medication Instructions Recorded Confirmed Type levothyroxine 112 mcg tablet 112 mcg PO DAILY hypothyroidism 08/15/19 09/30/22 History metformin 1,000 mg tablet 1,000 mg PO BID Diabetes 08/15/19 09/30/22 History gabapentin 400 mg tablet 400 mg PO BID Pain 09/16/22 09/30/22 History aspirin 81 mg tablet,delayed 81 mg PO DAILY CAD #30 tabs 09/24/22 09/30/22 Rx release ([place] Low Dose Aspirin) atorvastatin 40 mg tablet 40 mg PO HS High cholesterol 09/30/22 09/30/22 History clopidogrel 75 mg tablet 75 mg PO DAILY Blood thinner 09/30/22 09/30/22 History metoprolol succinate 50 mg 50 mg PO DAILY High blood pressure 09/30/22 09/30/22 History tablet,extended release 24 hr New Prescriptions to Start Prescriptions: Allergies Allergy/AdvReac Type Severity Reaction Status Date / Time iodine Allergy Severe S-SWELLS-OR Verified 09/16/22 13:32 AL/THROAT shellfish derived Allergy Intermediate I-HIVES Verified 09/16/22 13:32 [From SHELLFISH (FOOD/DRUG)] From SHELLFISH (FOOD/DRUG) Allergy Intermediate I-HIVES Uncoded 09/16/22 13:32 Exam Data for Last 24 hours Vital signs and Labs for Last 24 Hours: Temp Pulse Resp BP Pulse Ox 103.4 F H 94 H 18 156/78 H 100 09/30/22 00:10 09/30/22 04:01 09/30/22 00:10 09/30/22 04:01 09/30/22 04:01 Laboratory Results - last 24 hr 09/30/22 00:15: WBC 19.0 H D, RBC 3.23 L, Hgb 9.7 L, Hct 30.5 L, MCV 94.3 H, MCH 30.1, MCHC 32.0, RDW 20.5 H, Plt Count 566 H D, MPV 9.1, Neut % (Auto) 92.9 H, Lymph % (Auto) 3.5 L, [place] % (Auto) 1.7, Eos % (Auto) 1.8, Baso % (Auto) 0.2, Neut # (Auto) 17.7 H, Lymph # (Auto) 0.7, [place] # (Auto) 0.3, Eos # (Auto) 0.4, Baso # (Auto) 0.0, Total Counted 100, Neutrophils % (Manual) 83 H, Band Neutrophils % 10.0 H, Lymphocytes % (Manual) 7 L, Platelet Estimate Moderate increase, RBC Morphology Not Reportable, Anisocytosis 3+ 09/30/22 00:15: Sodium 138, Potassium 3.7, Chloride 106, Carbon Dioxide 24, Anion Gap 11.7, BUN 14, Creatinine 1.20, Estimated Creat Clear 48, Estimated GFR 58 L, Est GFR ( Amer) 70, Glucose 213 H, Calcium 8.9, Total Bilirubin 1.7 H, AST 49 D, ALT 121 H D, Alkaline Phosphatase 112, Total Protein 7.3, Albumin 3.9, Globulin 3.4 H, Albumin/Globulin Ratio 1.1 09/30/22 00:15: Lactate 2.1 09/30/22 00:15: Amylase 136 H, Lipase 93, Acetone Level None detected 09/30/22 02:10: SARS-CoV-2 (PCR) Detected A, Influenza A Untype (PCR) Not detected, Influenza Type B (PCR) Not detected 09/30/22 03:12: Urine Color Yellow, Urine Anuj
[2022-09-30 04:38] LABS: Reflex Lactic Add Lactic Reflex
[2022-09-30 04:57] LABS: Lactic Acid Follow Up (RFLX 1) 1.1 mmol/L (0.7-2.1)
--- NOTE | 2022-09-30 05:27 | PC.NURSE ---
pt arrived to floor via wheelchair @ [id number].
--- NOTE | 2022-09-30 06:45 | PC.NURSE ---
Nicotine patch applied to right upper arm.
[2022-09-30 06:51] LABS: Chloride 107 mmol/L (98-107); Potassium 3.5 mmoL/L (3.5-5.1); Sodium 137 mmol/L (136-145)
[2022-09-30 06:54] LABS: Anion Gap 9.5 mEq/L (5-15); Basophils # 0.1 K/mm3 (0-0.2); Basophils % 0.2 % (0.1-2.0); Blood Urea Nitrogen 10 mg/dl (9-20); Calcium 7.9 mg/dl (8.4-10.2); Carbon Dioxide 24 mmol/L (22.0-30.0); Creatinine Clearance Estimated 59 mL/min (50-200); Eosinophils # 0.1 K/mm3 (0.0-0.4); Eosinophils % 0.3 % (0.1-12.0); Estimated Glomerular Filt Rate 71 ml/min (>60); GFR (African American) 86 ML/MIN (>60); Glucose 210 mg/dl (74-100); Hematocrit 27.6 % (42.0-52.0); Lymphocytes # 1.1 K/mm3 (0.7-4.5); Lymphocytes % 4.2 % (10-50); Mean Corpuscular HGB Conc 32.7 g/dL (31.8-35.4); Mean Corpuscular Volume 91.6 fl (80-94); Mean Platelet Volume 9.3 fl (7.4-10.4); Monocytes # 0.7 K/mm3 (0.1-1.0); Monocytes % 2.5 % (1.7-9.3); Neutrophils # 24.5 K/mm3 (1.8-7.8); Neutrophils % 92.8 % (37.0-80.0); Platelet Count 538 K/mm3 (142-424); Red Blood Count 3.01 M/mm3 (4.60-6.20); Red Cell Distribution Width 20.5 % (11.5-17.5); White Blood Count 26.4 K/mm3 (4.8-10.8)
[2022-09-30 06:55] LABS: Magnesium 1.5 mg/dl (1.6-2.3)
[2022-09-30 08:03] LABS: Creatine Kinase 111 U/L (55-170)
--- NOTE | 2022-09-30 11:41 | CT_ITS ---
PROCEDURE INFORMATION: Exam: CT Head Without Contrast Exam date and time: 09/30/2022 5:30 PM Age: 81 years old Clinical indication: Coma or unconsciousness; Additional info: Right facial swelling, infection TECHNIQUE: Imaging protocol: Computed tomography of the head without contrast. Radiation optimization: All CT scans at this facility use at least one of these dose optimization techniques: automated exposure control; mA and/or kV adjustment per patient size (includes targeted exams where dose is matched to clinical indication); or iterative reconstruction. COMPARISON: CT HEAD/BRAIN WO CON 08/14/2022 1:15 PM FINDINGS: Brain: No intracranial hemorrhage. No mass effect, edema or midline shift. Cortical sulci are unremarkable for age. There are vague areas of decreased attenuation within the periventricular white matter likely secondary to chronic microvascular changes. Cerebral ventricles: No ventriculomegaly. Paranasal sinuses: There is mild mucosal thickening left maxillary sinus otherwise visualized paranasal sinuses are aerated and clear. Sinuses are unremarkable. No fluid levels. Mastoid air cells: Visualized mastoid air cells are well aerated. Bones/joints: Unremarkable. No acute fracture. Soft tissues: There is mild right periorbital soft tissue swelling/edema extending posteriorly superficial to the right zygoma that may be secondary to cellulitis and should be correlated clinically. There is also asymmetric enlargement and increased attenuation of the right parotid gland partially visualized and better assessed on CT examination of the neck.. IMPRESSION: 1. No acute intracranial abnormality. 2. Soft tissue swelling superficial to the right globe and right zygoma possibly secondary cellulitis. 3. Asymmetric enlargement of the right parotid gland difficult to adequately assess and better evaluated on contrast enhanced CT examination of the neck.
--- NOTE | 2022-09-30 11:41 | CT_ITS ---
PROCEDURE INFORMATION: Exam: CT Neck Without Contrast Exam date and time: 09/30/2022 5:35 PM Age: 81 years old Clinical indication: Mass, lump, or swelling in neck; Right; Additional info: Swelling, infection of right face/neck TECHNIQUE: Imaging protocol: Computed tomography of the neck without contrast. Radiation optimization: All CT scans at this facility use at least one of these dose optimization techniques: automated exposure control; mA and/or kV adjustment per patient size (includes targeted exams where dose is matched to clinical indication); or iterative reconstruction. COMPARISON: CT SOFT TISSUE NECK W CON 09/30/2022 1:28 AM FINDINGS: Tubes, catheters and devices: There is an NG tube coursing below the field into the esophagus Pharynx: Unremarkable. No significant tonsillar enlargement. Larynx: Unremarkable. Epiglottis is normal. Prevertebral and retropharyngeal spaces: Unremarkable. Salivary glands: Left parotid gland and both submandibular glands are unremarkable. Thyroid: Normal. No enlarged or calcified nodules. Lymph nodes: Unremarkable. No lymphadenopathy. Trachea: There is an ET tube extending into the trachea Lungs: Partial visualization of left pleural effusion and atelectasis. Bones/joints: Unremarkable. No acute fracture. Soft tissues: There is diffuse soft tissue swelling with subcutaneous fat stranding along the right side of the face and neck that has mildly progressed and now extends superficial to the right orbit likely in part secondary to diffuse cellulitis. There is diffuse the swelling of the right parotid gland as well as the adjacent masseter muscle relatively stable from earlier studies that may represent superimposed sialoadenitis. IMPRESSION: 1. Diffuse cellulitis involving right side of the face and neck mildly progressed from previous exam. 2. Acute parotitis involving the right parotid gland with extension into the right masseter muscle relatively stable from previous examination.
--- NOTE | 2022-09-30 12:55 | HMH.ITSTN ---
Vika from Radiology called and explained that Dr Sandra was asking what to order for this patient for a CT, pt just had a CT at 1:30AM with contrast. I advised that we could do a soft tissue neck and brain if that was what he wanted. She said patient had facial swelling. I had additional questions so I called the floor and ask to speak to Dr. Sandra and they told me to call his ext. I spoke to Dr. Sandra at 11:55 AM and he said patients swelling had increased and Mary Bee the nurse was concerned because his eye socket was swollen. Dr. Sandra said he needed the patients FACE, NECK and HEAD scanned. I then placed a CT facial bones order in addition to the soft tissue neck and brain. Per his request to CT the face. Pt was intubated at 12:15 roughly and we were unable to do the scan at this time. Scans on hold till pt can be stabilized and brought down.
--- NOTE | 2022-09-30 13:05 | XR_ITS ---
PROCEDURE INFORMATION: Exam: XR Chest Exam date and time: 09/30/2022 1:14 PM Age: 81 years old Clinical indication: Device placement; Ett placement (vent status); Additional info: Post intubation TECHNIQUE: Imaging protocol: Radiologic exam of the chest. Views: 1 view. COMPARISON: CR XR CHEST PORTABLE 09/30/2022 12:56 AM FINDINGS: Tubes, catheters and devices: There is an ET tube whose tip projects 7 cm above the chetan and in satisfactory position. Lungs: There is some indistinct opacities at the left lung base partially obscuring margins left hemidiaphragm suspicious for are subsegmental atelectasis or small infiltrate. Remaining lung pierson are clear. Pleural spaces: Unremarkable. No pleural effusion. No pneumothorax. Heart/Mediastinum: Cardiac silhouette is stable in appears mildly enlarged. Bones/joints: Unremarkable for age. IMPRESSION: 1. ET tube in satisfactory position. 2. Mild cardiomegaly with questionable left basilar consolidation.
--- NOTE | 2022-09-30 13:24 | EXP.PULM.CON ---
History of Present Illness History of present illness: Intubated and sedated. Much of the history is obtained from chart and patient's family. Mr. Morales 86-year-old male recently admitted to the hospital, CAD status post stenting was presented back to the hospital by his family after concern for worsening mentation along with right-sided neck swelling along with difficulty talking or swallowing. [facility] Disclaimer: The information contained in this section may have been updated after the patient was seen, as this information can be updated by other users. Medical History (Updated 09/30/22 @ 13:51 by David Ball MD) Abnormal electrocardiogram [ECG] [EKG] COVID-19 Diabetes mellitus Dyspnea On mechanically assisted ventilation Family History Other No significant family history Social History Smoking Status: Heavy tobacco smoker alcohol intake: current substance use type: denies use current occupational status: retired Travel in the last 8 weeks: [place] the [place] Review of Systems Review of Systems Review of systems:: unable to obtain Review of systems (narrative): Intubated and sedated Pulmonology Exam Inpatient Vital signs and Labs for Last 24 Hours: Temp Pulse Resp BP Pulse Ox FiO2 98.1 F 105 H 24 179/86 H 100 50 09/30/22 08:00 09/30/22 08:00 09/30/22 12:45 09/30/22 08:00 09/30/22 12:45 09/30/22 12:45 Laboratory Results - last 24 hr 09/30/22 00:15: WBC 19.0 H D, RBC 3.23 L, Hgb 9.7 L, Hct 30.5 L, MCV 94.3 H, MCH 30.1, MCHC 32.0, RDW 20.5 H, Plt Count 566 H D, MPV 9.1, Neut % (Auto) 92.9 H, Lymph % (Auto) 3.5 L, [place] % (Auto) 1.7, Eos % (Auto) 1.8, Baso % (Auto) 0.2, Neut # (Auto) 17.7 H, Lymph # (Auto) 0.7, [place] # (Auto) 0.3, Eos # (Auto) 0.4, Baso # (Auto) 0.0, Total Counted 100, Neutrophils % (Manual) 83 H, Band Neutrophils % 10.0 H, Lymphocytes % (Manual) 7 L, Platelet Estimate Moderate increase, RBC Morphology Not Reportable, Anisocytosis 3+ 09/30/22 00:15: Sodium 138, Potassium 3.7, Chloride 106, Carbon Dioxide 24, Anion Gap 11.7, BUN 14, Creatinine 1.20, Estimated Creat Clear 48, Estimated GFR 58 L, Est GFR ( Amer) 70, Glucose 213 H, Calcium 8.9, Total Bilirubin 1.7 H, AST 49 D, ALT 121 H D, Alkaline Phosphatase 112, Total Protein 7.3, Albumin 3.9, Globulin 3.4 H, Albumin/Globulin Ratio 1.1 09/30/22 00:15: Lactate 2.1 09/30/22 00:15: Amylase 136 H, Lipase 93, Acetone Level None detected 09/30/22 02:10: SARS-CoV-2 (PCR) Detected A, Influenza A Untype (PCR) Not detected, Influenza Type B (PCR) Not detected 09/30/22 03:12: Urine Color Yellow, Urine Appearance Clear, Urine pH 5.5, Ur Specific [place] 1.020, Urine Protein Negative, Urine Glucose (UA) Trace, Urine Ketones Negative, Urine Blood Negative, Urine Nitrate Negative, Urine Bilirubin Negative, Urine Urobilinogen 1.0, Ur Leukocyte Esterase Negative, Urine WBC Occasional, Ur Squamous Epith Cells Occasional 09/30/22 04:40: Lactate 1.1 09/30/22 06:27: WBC 26.4 H* D, RBC 3.01 L, Hgb 9.0 L, Hct 27.6 L, MCV 91.6, MCH 30.0, MCHC 32.7, RDW 20.5 H, Plt Count 538 H, MPV 9.3, Neut % (Auto) 92.8 H, Lymph % (Auto) 4.2 L, [place] % (Auto) 2.5, Eos % (Auto) 0.3, Baso % (Auto) 0.2, Neut # (Auto) 24.5 H, Lymph # (Auto) 1.1, [place] # (Auto) 0.7, Eos # (Auto) 0.1, Baso # (Auto) 0.1 09/30/22 06:27: Sodium 137, Potassium 3.5, Chloride 107, Carbon Dioxide 24, Anion Gap 9.5, BUN 10 D, Creatinine 1.00, Estimated Creat Clear 59, Estimated GFR 71, Est GFR ( Amer) 86 D, Glucose 210 H, Calcium 7.9 L, Phosphorus 3.0, Magnesium 1.5 L 09/30/22 06:27: Total Creatine Kinase 111 D I & O for Labs for Last 24 Hours: Intake & Output 09/27/22 09/28/22 09/29/22 09/30/22 23:59 23:59 23:59 23:59 Intake Total 240 / 240 Output Total 650 / 650 Balance -410 / -410 Weight 165 lb 7 oz Constitutional: Present no acute distress Co
[2022-09-30 13:58] LABS: ABG Base Excess -2.1 mmol/L (-2.4-2.3); ABG HCO3 21.6 mmhg (22.0-26.0); ABG Oxygen Saturation 98 % (90-100); ABG PCO2 30.3 mmhg (35.0-45.0); ABG PH 7.47 mmol/L (7.35-7.45); ABG PO2 93.9 mmhg (80-100); ABG TCO2 22.5 mmhg (23-27)
[2022-09-30 14:01] LABS: Oxygen 40% %; PEEP 5; Tidal Volume 440; Vent Rate 18
[2022-09-30 14:02] LABS: Allen's Test Patient Unable; Source Right Radial
--- NOTE | 2022-09-30 14:49 | PC.NURSE ---
AT 1100 THIS MORNING PHYSICIAN WAS NOTIFIED ABOUT PT'S FACIAL SWELLING INCREASING AND SPREADING PAST THE EAR AND IN THE RIGHT EYE. PT WAS ALSO BECOMING MORE AGITATED TO WHERE IT REQUIRED 3 STAFF MEMBERS TO GET PT BACK TO BED AFTER PT INSISTED HE WAS GOING TO GO OUT IN THE HALLWAY TO SEE A FRIEND. FAMILY WAS NOTIFIED AND THEY STATED THEY WERE ON THEIR WAY TO THE HOSPITAL TO SEE PT. PHYSICIAN ORDERED ATIVAN AND HALDOL FOR PT'S AGITATION. AFTER PT RECEIVED ATIVAN DOSE WHILE LYING ON HIS RIGHT SIDE BLEEDING WAS NOTED AT THE RIGHT EAR. NOTIFIED PHYSICIAN AND HE ARRIVED TO BEDSIDE. ONE TIME ORDER FOR BENADRYL WAS GIVEN AND SOLUMEDROL. PHYSICIAN NOTICED SWELLING WAS MUCH WORSE THAN IT WAS THIS MORNING AND THERE WAS A CONCERN THAT PT COULD POSSIBLY LOSE HIS AIRWAY. PHYSICIAN WANTED ANESTHESIA NOTIFIED FOR INTUBATION. NOTIFIED FAMILY TO UPDATE ON PT'S STATUS AND TO VERIFY THEY WANTED PT INTUBATED AND THEY STATED THEY WANTED EVERYTHING DONE FOR PT. ANESTHESIA ARRIVED AT BEDSIDE PT WAS MOVED TO 218 AT 1230. ATTEMPTED TO INTUBATE AT 1235 W/O SEDATION AND PT WAS UNABLE TO TOLERATE ANESTHESIA ORDERED ETOMIDATE 20 MG AT 1240 PT WAS INTUBATED WITH A SIZE 7 ET TUBE 22 AT THE LIP AT 1243 16 FR CATHETER WAS INSERTED PROPROFOL WAS STARTED 1250 REPORT HANDOFF TO GARRICK GAMEZ RN
--- NOTE | 2022-09-30 15:20 | PC.NURSE ---
[address] Ball to clarify orders, does md want pt on propofol and fentatnyl. per dr ball, place pt on both propofol and fentanyl. also notified that pt bp is low. new orders are LR 500ml bolus, if bp still low repeat bolus. if bp still low, start levophed drip.
--- NOTE | 2022-09-30 16:25 | PC.NURSE ---
[address] Sandra of recommendations by Dr Ball, (change abx to vancomycin and cefepime). [address] Sandra of recommendations by Dr Ball, (change abx to vancomycin and cefepime), asked if MD would like med orders sent to pharmacy, orders sent for md at this time.
--- NOTE | 2022-09-30 16:26 | EXP.PHA.CONS ---
Pharmacy Consult Date: 09/30/22 Time: 16:26 Referring provider: DR. RAY Reason for Consult:: VANCOMYCIN DOSING Allergies Allergy/AdvReac Type Severity Reaction Status Date / Time iodine Allergy Severe S-SWELLS-OR Verified 09/16/22 13:32 AL/THROAT shellfish derived Allergy Intermediate I-HIVES Verified 09/16/22 13:32 [From SHELLFISH (FOOD/DRUG)] From SHELLFISH (FOOD/DRUG) Allergy Intermediate I-HIVES Uncoded 09/16/22 13:32 Home Medications Medication Instructions Recorded Confirmed Type levothyroxine 112 mcg tablet 112 mcg PO DAILYDM hypothyroidism 08/15/19 09/30/22 History metformin 1,000 mg tablet 1,000 mg PO BID Diabetes 08/15/19 09/30/22 History gabapentin 400 mg tablet 400 mg PO BID Pain 09/16/22 09/30/22 History aspirin 81 mg tablet,delayed 81 mg PO DAILY CAD #30 tabs 09/24/22 09/30/22 Rx release ([place] Low Dose Aspirin) atorvastatin 40 mg tablet 40 mg PO HS High cholesterol 09/30/22 09/30/22 History clopidogrel 75 mg tablet 75 mg PO DAILY Blood thinner 09/30/22 09/30/22 History metoprolol succinate 50 mg 50 mg PO DAILY High blood pressure 09/30/22 09/30/22 History tablet,extended release 24 hr New Prescriptions to Start Prescriptions: Height: 1.78 m Weight: 75.041 kg Laboratory Results:: Laboratory Results - last 24 hr 09/30/22 00:15: WBC 19.0 H D, RBC 3.23 L, Hgb 9.7 L, Hct 30.5 L, MCV 94.3 H, MCH 30.1, MCHC 32.0, RDW 20.5 H, Plt Count 566 H D, MPV 9.1, Neut % (Auto) 92.9 H, Lymph % (Auto) 3.5 L, [place] % (Auto) 1.7, Eos % (Auto) 1.8, Baso % (Auto) 0.2, Neut # (Auto) 17.7 H, Lymph # (Auto) 0.7, [place] # (Auto) 0.3, Eos # (Auto) 0.4, Baso # (Auto) 0.0, Total Counted 100, Neutrophils % (Manual) 83 H, Band Neutrophils % 10.0 H, Lymphocytes % (Manual) 7 L, Platelet Estimate Moderate increase, RBC Morphology Not Reportable, Anisocytosis 3+ 09/30/22 00:15: Sodium 138, Potassium 3.7, Chloride 106, Carbon Dioxide 24, Anion Gap 11.7, BUN 14, Creatinine 1.20, Estimated Creat Clear 48, Estimated GFR 58 L, Est GFR ( Amer) 70, Glucose 213 H, Calcium 8.9, Total Bilirubin 1.7 H, AST 49 D, ALT 121 H D, Alkaline Phosphatase 112, Total Protein 7.3, Albumin 3.9, Globulin 3.4 H, Albumin/Globulin Ratio 1.1 09/30/22 00:15: Lactate 2.1 09/30/22 00:15: Amylase 136 H, Lipase 93, Acetone Level None detected 09/30/22 02:10: SARS-CoV-2 (PCR) Detected A, Influenza A Untype (PCR) Not detected, Influenza Type B (PCR) Not detected 09/30/22 03:12: Urine Color Yellow, Urine Appearance Clear, Urine pH 5.5, Ur Specific [place] 1.020, Urine Protein Negative, Urine Glucose (UA) Trace, Urine Ketones Negative, Urine Blood Negative, Urine Nitrate Negative, Urine Bilirubin Negative, Urine Urobilinogen 1.0, Ur Leukocyte Esterase Negative, Urine WBC Occasional, Ur Squamous Epith Cells Occasional 09/30/22 04:40: Lactate 1.1 09/30/22 06:27: WBC 26.4 H* D, RBC 3.01 L, Hgb 9.0 L, Hct 27.6 L, MCV 91.6, MCH 30.0, MCHC 32.7, RDW 20.5 H, Plt Count 538 H, MPV 9.3, Neut % (Auto) 92.8 H, Lymph % (Auto) 4.2 L, [place] % (Auto) 2.5, Eos % (Auto) 0.3, Baso % (Auto) 0.2, Neut # (Auto) 24.5 H, Lymph # (Auto) 1.1, [place] # (Auto) 0.7, Eos # (Auto) 0.1, Baso # (Auto) 0.1 09/30/22 06:27: Sodium 137, Potassium 3.5, Chloride 107, Carbon Dioxide 24, Anion Gap 9.5, BUN 10 D, Creatinine 1.00, Estimated Creat Clear 59, Estimated GFR 71, Est GFR ( Amer) 86 D, Glucose 210 H, Calcium 7.9 L, Phosphorus 3.0, Magnesium 1.5 L 09/30/22 06:27: Total Creatine Kinase 111 D 09/30/22 13:05: Specimen Source Right radial, O2 % 40%, ABG pH 7.47 H, ABG pCO2 30.3 L, ABG pO2 93.9, ABG HCO3 21.6 L, ABG Total CO2 22.5 L, ABG O2 Saturation 98, ABG Base Excess -2.1, [place] Test Patient unable, Vent Rate 18, Tidal Volume 440, PEEP 5 Medical History: Medical History (Updated 09/30/22 @ 13:51 by David Ball MD) Abnormal electrocardiogram [ECG] [EKG] COVID-19 Diabetes mellitus Dyspnea On mechanically assisted ventilation Assessment and Plan Assessment and plan all Dx Assessment
--- NOTE | 2022-09-30 16:52 | PC.NURSE ---
propofol drip started at 20mcg, pt still agitated and fighting vent and flailing arms.
--- NOTE | 2022-09-30 16:52 | PC.NURSE ---
drip increased to 30mcg, pt still restless and flailing arms about. drip increased to 45mcg
--- NOTE | 2022-09-30 17:02 | PC.NURSE ---
pt carolvan decresed to 40mcg
--- NOTE | 2022-09-30 18:14 | PC.NURSE ---
pt off unit for ct scan from 1721 to approx 1750 with Meredith Chaudhari RN, radiology staff and RT staff
--- NOTE | 2022-09-30 19:46 | PC.NURSE ---
Dr. Mary Shaffer here for pm rounds. Verbal orders given to restart home medications tomorrow as directed in med reconciliation. Verbal order to give 75mg PO plavix via OG tube and 81mg PO Aspirin via OG now. Repeated and verified and faxed to pharmacy.
--- NOTE | 2022-09-30 20:16 | EXP.PN ---
Subjective *Date: 09/30/22 *Time: 20:16 Interval history: Swelling on right facial cheek and neck progressively worsened throughout the morning and eventually his right upper and lower eyelids were swollen shut. Swelling extended up to his right ear and he began to have bleeding from his right ear late this morning. Given progressively worsening swelling of right face and neck patient was sedated and intubated for airway protection. Pulmonology was consulted to help with ventilator management, and antibiotics were increased from Unasyn to Vanco and cefepime. Exam Data for Last 24 hours Vital signs and Labs for Last 24 Hours: Temp Pulse Resp BP Pulse Ox FiO2 98.6 F 82 18 90/54 L 98 35 09/30/22 17:13 09/30/22 19:00 09/30/22 19:00 09/30/22 19:00 09/30/22 19:00 09/30/22 18:32 Laboratory Results - last 24 hr 09/30/22 00:15: WBC 19.0 H D, RBC 3.23 L, Hgb 9.7 L, Hct 30.5 L, MCV 94.3 H, MCH 30.1, MCHC 32.0, RDW 20.5 H, Plt Count 566 H D, MPV 9.1, Neut % (Auto) 92.9 H, Lymph % (Auto) 3.5 L, [place] % (Auto) 1.7, Eos % (Auto) 1.8, Baso % (Auto) 0.2, Neut # (Auto) 17.7 H, Lymph # (Auto) 0.7, [place] # (Auto) 0.3, Eos # (Auto) 0.4, Baso # (Auto) 0.0, Total Counted 100, Neutrophils % (Manual) 83 H, Band Neutrophils % 10.0 H, Lymphocytes % (Manual) 7 L, Platelet Estimate Moderate increase, RBC Morphology Not Reportable, Anisocytosis 3+ 09/30/22 00:15: Sodium 138, Potassium 3.7, Chloride 106, Carbon Dioxide 24, Anion Gap 11.7, BUN 14, Creatinine 1.20, Estimated Creat Clear 48, Estimated GFR 58 L, Est GFR ( Amer) 70, Glucose 213 H, Calcium 8.9, Total Bilirubin 1.7 H, AST 49 D, ALT 121 H D, Alkaline Phosphatase 112, Total Protein 7.3, Albumin 3.9, Globulin 3.4 H, Albumin/Globulin Ratio 1.1 09/30/22 00:15: Lactate 2.1 09/30/22 00:15: Amylase 136 H, Lipase 93, Acetone Level None detected 09/30/22 02:10: SARS-CoV-2 (PCR) Detected A, Influenza A Untype (PCR) Not detected, Influenza Type B (PCR) Not detected 09/30/22 03:12: Urine Color Yellow, Urine Appearance Clear, Urine pH 5.5, Ur Specific [place] 1.020, Urine Protein Negative, Urine Glucose (UA) Trace, Urine Ketones Negative, Urine Blood Negative, Urine Nitrate Negative, Urine Bilirubin Negative, Urine Urobilinogen 1.0, Ur Leukocyte Esterase Negative, Urine WBC Occasional, Ur Squamous Epith Cells Occasional 09/30/22 04:40: Lactate 1.1 09/30/22 06:27: WBC 26.4 H* D, RBC 3.01 L, Hgb 9.0 L, Hct 27.6 L, MCV 91.6, MCH 30.0, MCHC 32.7, RDW 20.5 H, Plt Count 538 H, MPV 9.3, Neut % (Auto) 92.8 H, Lymph % (Auto) 4.2 L, [place] % (Auto) 2.5, Eos % (Auto) 0.3, Baso % (Auto) 0.2, Neut # (Auto) 24.5 H, Lymph # (Auto) 1.1, [place] # (Auto) 0.7, Eos # (Auto) 0.1, Baso # (Auto) 0.1 09/30/22 06:27: Sodium 137, Potassium 3.5, Chloride 107, Carbon Dioxide 24, Anion Gap 9.5, BUN 10 D, Creatinine 1.00, Estimated Creat Clear 59, Estimated GFR 71, Est GFR ( Amer) 86 D, Glucose 210 H, Calcium 7.9 L, Phosphorus 3.0, Magnesium 1.5 L 09/30/22 06:27: Total Creatine Kinase 111 D 09/30/22 13:05: Specimen Source Right radial, O2 % 40%, ABG pH 7.47 H, ABG pCO2 30.3 L, ABG pO2 93.9, ABG HCO3 21.6 L, ABG Total CO2 22.5 L, ABG O2 Saturation 98, ABG Base Excess -2.1, Pako Test Patient unable, Vent Rate 18, Tidal Volume 440, PEEP 5 I & O for Last 24 hours: Intake & Output 09/27/22 09/28/22 09/29/22 09/30/22 23:59 23:59 23:59 23:59 Intake Total 926 / 926 Output Total 975 / 975 Balance -49 / -49 Weight 75.041 kg Microbiology Reports for the Last 24 Hours: Microbiology 09/30/22 12:46 Sputum - Endotracheal Tube Aspirate Gram Stain - Final Constitutional Constitutional: moderate distress, severe distress, average body habitus and chronically ill appearing Comments: Confused and uncomfortable appearing in setting of significant right facial swelling *Routine HEENT Exam Head: Present atraumatic and facial swelling (Right facial swelling extending from just below right ear down to right neck) Eye: Pres
--- NOTE | 2022-09-30 22:22 | PC.NURSE ---
2100 - Granddaughter called to check on patient, updated her on patients status.
[2022-10-01] VITALS (31 sets, daily range): BP systolic 89–157; BP diastolic 46–86; PULSE 70–118; RESP 13–21; TEMP 35.6–38.3; O2SAT 97–100; BMI 23.5
--- NOTE | 2022-10-01 06:03 | PC.NURSE ---
Pt remains intubated and sedated. Has tolerated the ventilator t/o the night. Sedation is adequate. Remains NSR on telemetry. LS CTA. BS +x4. No bm this shift. Dressing to left forearm skin tear replaced this shift. Edema to pt right side of the face has significantly improved and is almost back to patient baseline. Pt voiding per f/c with adequate output. VSS. Low grade temp t/o the night. Pt received full bath and bed change this shift. No acute distress noted, will continue to monitor.
[2022-10-01 06:14] LABS: Basophils % 0.1 % (0.1-2.0); Eosinophils # 0.2 K/mm3 (0.0-0.4); Eosinophils % 0.6 % (0.1-12.0); Hematocrit 27.3 % (42.0-52.0); Hemoglobin 8.5 g/dL (14.1-18.0); Lymphocytes % 3.3 % (10-50); Mean Corpuscular HGB Conc 31.3 g/dL (31.8-35.4); Mean Corpuscular Hemoglobin 30.2 pg (27.0-31.2); Mean Corpuscular Volume 96.4 fl (80-94); Mean Platelet Volume 9.6 fl (7.4-10.4); Monocytes # 0.6 K/mm3 (0.1-1.0); Monocytes % 1.9 % (1.7-9.3); Neutrophils # 29.2 K/mm3 (1.8-7.8); Neutrophils % 94.2 % (37.0-80.0); Platelet Count 363 K/mm3 (142-424); Red Blood Count 2.83 M/mm3 (4.60-6.20); Red Cell Distribution Width 20.8 % (11.5-17.5)
[2022-10-01 06:30] LABS: MANUAL DIFFERENTIAL MANUAL DIFFERENTIAL (MANUAL DIFF)
[2022-10-01 06:52] LABS: Chloride 106 mmol/L (98-107); Sodium 134 mmol/L (136-145)
[2022-10-01 06:53] LABS: Potassium 4.9 mmoL/L (3.5-5.1)
[2022-10-01 06:55] LABS: Alanine Aminotransferase 59 U/L (12-78); Albumin Level 2.6 g/dl (3.5-5.0); Alkaline Phosphatase 69 U/L (38-126); Anion Gap 11.9 mEq/L (5-15); Aspartate Amino Transferase 45 U/L (17-59); Bilirubin,Total 1.3 mg/dl (0.2-1.3); Blood Urea Nitrogen 15 mg/dl (9-20); Carbon Dioxide 21 mmol/L (22.0-30.0); Creatinine Clearance Estimated 59 mL/min (50-200); Estimated Glomerular Filt Rate 81 ml/min (>60); GFR (African American) 98 ML/MIN (>60); Globulin 2.7 g/dL (1.3-3.2); Total Protein,Serum 5.3 g/dl (6.3-8.2)
[2022-10-01 06:56] LABS: Calcium 7.9 mg/dl (8.4-10.2); Glucose 257 mg/dl (74-100)
[2022-10-01 08:01] LABS: ABG HCO3 22.4 mmhg (22.0-26.0); ABG Oxygen Saturation 97 % (90-100); ABG PCO2 30.3 mmhg (35.0-45.0); ABG PH 7.49 mmol/L (7.35-7.45); ABG PO2 92.3 mmhg (80-100); ABG TCO2 23.3 mmhg (23-27)
[2022-10-01 08:06] LABS: Allen's Test ACCEPTABLE; Oxygen 30 %; PEEP 5; Source R RADIAL; Tidal Volume 440; Vent Rate 18
[2022-10-01 08:21] LABS: Lymphocytes % 4 % (10-50); Monocytes % 3 % (2-9); Neutrophils % 86 % (42-76); Total Cells Counted 100
[2022-10-01 08:22] LABS: Anisocytosis 1+; Macrocytosis 1+; Ovalocytes 1+; Platelet Estimate Normal; Poikilocytosis 1+
--- NOTE | 2022-10-01 08:59 | EXP.CARD.CON ---
History of Present Illness History of Present Illness Consult date: 10/01/22 Requesting physician: Jax Shaffer Consult reason: known to you Chief complaint: facial edema History of present illness: This is an 81-year-old gentleman who was recently discharged from the hospital status post stents to the LAD and right coronary artery with a pericardial effusion. The patient was brought back to the emergency department yesterday by his family due to facial swelling on the right side. The patient also had some delirium going on and no information was able to be obtained from the patient. The patient had right-sided swelling and he was having difficulty talking. His family got concerned that it may be obstructing his airway so they brought him back to the emergency department. The patient was subsequently admitted to the hospital. The edema in the right side of his face quickly worsened and his right eye was swollen shut and the edema was progressing. The patient was subsequently intubated and put on mechanical ventilation due to airway compromise. This morning he remains sedated on the ventilator. He appears to be in no distress. [facility] Disclaimer: The information contained in this section may have been updated after the patient was seen, as this information can be updated by other users. Medical History (Updated 10/01/22 @ 09:07 by Gretta Steve APRN) Abnormal electrocardiogram [ECG] [EKG] Acute parotitis Altered mental status CAD (coronary artery disease) CHF (congestive heart failure) COVID-19 Dementia Diabetes mellitus DM type 2 (diabetes mellitus, type 2) Dyspnea Elevated troponin On mechanically assisted ventilation Perforation of coronary artery Pericardial effusion after operative procedure Severe sepsis with acute organ dysfunction Surgical History (Updated 10/01/22 @ 09:07 by Gretta Steve APRN) History of coronary artery stent placement Status post left heart catheterization Family History Other No significant family history Social History Smoking Status: Heavy tobacco smoker alcohol intake: current substance use type: denies use current occupational status: retired Travel in the last 8 weeks: Inside the [place] Review of Systems Review of Systems Review of systems:: unable to obtain Exam Data for Last 24 hours Vital signs and Labs for Last 24 Hours: Temp Pulse Resp BP Pulse Ox FiO2 99.2 F 78 18 89/48 L 100 35 10/01/22 04:00 10/01/22 06:47 10/01/22 06:47 10/01/22 06:47 10/01/22 06:47 10/01/22 06:47 Laboratory Results - last 24 hr 09/30/22 13:05: Specimen Source Right radial, O2 % 40%, ABG pH 7.47 H, ABG pCO2 30.3 L, ABG pO2 93.9, ABG HCO3 21.6 L, ABG Total CO2 22.5 L, ABG O2 Saturation 98, ABG Base Excess -2.1, Pako Test Patient unable, Vent Rate 18, Tidal Volume 440, PEEP 5 10/01/22 05:51: WBC 31.0 H*, RBC 2.83 L, Hgb 8.5 L, Hct 27.3 L, MCV 96.4 H, MCH 30.2, MCHC 31.3 L, RDW 20.8 H, Plt Count 363 D, MPV 9.6, Neut % (Auto) 94.2 H, Lymph % (Auto) 3.3 L, [place] % (Auto) 1.9, Eos % (Auto) 0.6, Baso % (Auto) 0.1, Neut # (Auto) 29.2 H, Lymph # (Auto) 1.0, [place] # (Auto) 0.6, Eos # (Auto) 0.2, Baso # (Auto) 0.0, Total Counted 100, Neutrophils % (Manual) 86 H, Band Neutrophils % 7.0, Lymphocytes % (Manual) 4 L, Monocytes % (Manual) 3, Platelet Estimate Normal, Poikilocytosis 1+, Anisocytosis 1+, Macrocytosis 1+, Ovalocytes 1+ 10/01/22 05:51: Sodium 134 L, Potassium 4.9 D, Chloride 106, Carbon Dioxide 21 L, Anion Gap 11.9, BUN 15 D, Creatinine 0.90, Estimated Creat Clear 59, Estimated GFR 81, Est GFR ( Amer) 98, Glucose 257 H D, Calcium 7.9 L, Total Bilirubin 1.3, AST 45, ALT 59 D, Alkaline Phosphatase 69, Total Protein 5.3 L D, Albumin 2.6 L D, Globulin 2.7, Albumin/Globulin Ratio 1.0 L 10/01/22 07:47: Specimen Source R radial, O2 % 30, ABG pH 7.49 H, ABG pCO2 30
--- NOTE | 2022-10-01 10:07 | PC.NURSE ---
tech note; notified nurse of low rectal temperature. Warming blankets used.
--- NOTE | 2022-10-01 10:29 | EXP.PULM.PN ---
Subjective *Date: 10/01/22 *Time: 11:26 Interval history: No acute respiratory events overnight. Continues to remain on minimal vent settings. Pulmonology Exam Inpatient Vital signs and Labs for Last 24 Hours: Temp Pulse Resp BP Pulse Ox FiO2 96.1 F L 78 18 89/48 L 100 35 10/01/22 08:00 10/01/22 06:47 10/01/22 06:47 10/01/22 06:47 10/01/22 06:47 10/01/22 06:47 Laboratory Results - last 24 hr 09/30/22 13:05: Specimen Source Right radial, O2 % 40%, ABG pH 7.47 H, ABG pCO2 30.3 L, ABG pO2 93.9, ABG HCO3 21.6 L, ABG Total CO2 22.5 L, ABG O2 Saturation 98, ABG Base Excess -2.1, Pako Test Patient unable, Vent Rate 18, Tidal Volume 440, PEEP 5 10/01/22 05:51: WBC 31.0 H*, RBC 2.83 L, Hgb 8.5 L, Hct 27.3 L, MCV 96.4 H, MCH 30.2, MCHC 31.3 L, RDW 20.8 H, Plt Count 363 D, MPV 9.6, Neut % (Auto) 94.2 H, Lymph % (Auto) 3.3 L, [place] % (Auto) 1.9, Eos % (Auto) 0.6, Baso % (Auto) 0.1, Neut # (Auto) 29.2 H, Lymph # (Auto) 1.0, [place] # (Auto) 0.6, Eos # (Auto) 0.2, Baso # (Auto) 0.0, Total Counted 100, Neutrophils % (Manual) 86 H, Band Neutrophils % 7.0, Lymphocytes % (Manual) 4 L, Monocytes % (Manual) 3, Platelet Estimate Normal, Poikilocytosis 1+, Anisocytosis 1+, Macrocytosis 1+, Ovalocytes 1+ 10/01/22 05:51: Sodium 134 L, Potassium 4.9 D, Chloride 106, Carbon Dioxide 21 L, Anion Gap 11.9, BUN 15 D, Creatinine 0.90, Estimated Creat Clear 59, Estimated GFR 81, Est GFR ( Amer) 98, Glucose 257 H D, Calcium 7.9 L, Total Bilirubin 1.3, AST 45, ALT 59 D, Alkaline Phosphatase 69, Total Protein 5.3 L D, Albumin 2.6 L D, Globulin 2.7, Albumin/Globulin Ratio 1.0 L 10/01/22 07:47: Specimen Source R radial, O2 % 30, ABG pH 7.49 H, ABG pCO2 30.3 L, ABG pO2 92.3, ABG HCO3 22.4, ABG Total CO2 23.3, ABG O2 Saturation 97, ABG Base Excess -1.0, Pako Test Acceptable, Vent Rate 18, Tidal Volume 440, PEEP 5 I & O for Labs for Last 24 Hours: Intake & Output 09/28/22 09/29/22 09/30/22 10/01/22 23:59 23:59 23:59 23:59 Intake Total 1346 / 1381 179 / 179 Output Total 1525 / 1625 650 / 650 Balance -179 / -244 -471 / -471 Weight 165 lb 7 oz 164 lb 7.085 oz Microbiology Reports for the Last 24 Hours: Microbiology 09/30/22 12:46 Sputum - Endotracheal Tube Aspirate Gram Stain - Final Constitutional: Present no acute distress Comment:: Intubated and Sedated Head: Present facial swelling Eyes: Present other (Periorbital swelling) ENT: Absent normal exam Comment:: Right-sided face and neck swelling extending to his right periorbital area. Neck: Present trachea midline; Absent normal inspection Respiratory: Present patient mechanically ventilated, prolonged expiratory phase, rhonchi and wheezes Cardiac: Present S1/S2 and Tachycardia GI: Present soft; Absent distention or tenderness Skin: Present intact; Absent cyanosis Neuro: Absent alert, awake or oriented x 3 Comment:: Intubated and sedated Extremities: Present normal inspection; Absent clubbing or cyanosis Psychiatric: Present unable to assess Assessment and Plan *Assessment and plan (1) On mechanically assisted ventilation: Status: Acute Category: Medical Code(s): Z99.11 - Dependence on respirator [ventilator] status (2) COVID-19: Status: Acute Category: Medical Code(s): U07.1 - COVID-19 Plan 81-year-old male recently admitted to the hospital after left heart cath and stenting. Also had a pericardial effusion drained. Patient was also diagnosed with COVID-19 during his recent hospital admission, needing increasing oxygen requirements. Denies any prior use of oxygen As per patient's family. He presented to the hospital complaining of worsening mentation along with right-sided neck and facial swelling and was admitted to the hospital being treated for acute parotitis with Unasyn, his swelling and clinical condition gradually deteriorated eventually concerning for airway compramise, plan was made to intubate and pulmonary was called for fur
--- NOTE | 2022-10-01 10:31 | XR_ITS ---
FINAL REPORT CLINICAL HISTORY: INTUBATED, PT HAD SWELLING TO NECK COMPARISON: One day prior FINDINGS: Endotracheal and NG tubes are again seen. The heart size is normal. The mediastinum is within normal limits. There is improved aeration of the left lung base. There is no pleural effusion. There is no pneumothorax. There are postoperative changes involving the left shoulder. IMPRESSION: Improved aeration of the left lung base. Reviewed, Interpreted and Dictated by Keyon Harrington III, MD Transcribed by Maximiliano Burgos Authenticated and [facility]
--- NOTE | 2022-10-01 11:17 | EXP.ENTCONS ---
History of Present Illness *Admission Date: 09/30/22 *History of present illness: c/o for right parotitis and cellulitis. Was brought into the emergency room for progressive swelling couple days ago. He was placed on broad-spectrum antibiotics after CT scan was concerning for facial cellulitis and parotitis. He ultimately was intubated with concerns that the swelling was going to compromise his airway. Per nursing report over the last 24 hours the swelling has improved significantly. He is intubated so history otherwise obtained from nursing staff at bedside in the medical records Exam: NAD, intubated right facial swelling, edema present purulance expressed from right melany's duct - cultured left EAC clear, TM WNL right EAC with small amount of blood, able to see partially around to see TM which appears WNL, minimal EAC swelling [facility] Disclaimer: The information contained in this section may have been updated after the patient was seen, as this information can be updated by other users. Medical History (Updated 10/01/22 @ 09:07 by Gretta Steve APRN) Abnormal electrocardiogram [ECG] [EKG] Acute parotitis Altered mental status CAD (coronary artery disease) CHF (congestive heart failure) COVID-19 Dementia Diabetes mellitus DM type 2 (diabetes mellitus, type 2) Dyspnea Elevated troponin On mechanically assisted ventilation Perforation of coronary artery Pericardial effusion after operative procedure Severe sepsis with acute organ dysfunction Surgical History (Updated 10/01/22 @ 09:07 by Gretta Steve APRN) History of coronary artery stent placement Status post left heart catheterization Family History Other No significant family history Social History Smoking Status: Heavy tobacco smoker alcohol intake: current substance use type: denies use current occupational status: retired Travel in the last 8 weeks: Inside the [place] Review of Systems Review of Systems Review of systems:: unable to obtain Meds Home Medications and Allergies Home Medications Medication Instructions Recorded Confirmed Type levothyroxine 112 mcg tablet 112 mcg PO DAILYDM hypothyroidism 08/15/19 09/30/22 History metformin 1,000 mg tablet 1,000 mg PO BID Diabetes 08/15/19 09/30/22 History gabapentin 400 mg tablet 400 mg PO BID Pain 09/16/22 09/30/22 History aspirin 81 mg tablet,delayed 81 mg PO DAILY CAD #30 tabs 09/24/22 09/30/22 Rx release ([place] Low Dose Aspirin) atorvastatin 40 mg tablet 40 mg PO HS High cholesterol 09/30/22 09/30/22 History clopidogrel 75 mg tablet 75 mg PO DAILY Blood thinner 09/30/22 09/30/22 History metoprolol succinate 50 mg 50 mg PO DAILY High blood pressure 09/30/22 09/30/22 History tablet,extended release 24 hr New Prescriptions to Start Prescriptions: Allergies Allergy/AdvReac Type Severity Reaction Status Date / Time iodine Allergy Severe S-SWELLS-OR Verified 09/16/22 13:32 AL/THROAT shellfish derived Allergy Intermediate I-HIVES Verified 09/16/22 13:32 [From SHELLFISH (FOOD/DRUG)] From SHELLFISH (FOOD/DRUG) Allergy Intermediate I-HIVES Uncoded 09/16/22 13:32 Results Labs Result Diagrams: 10/01/22 05:51 10/01/22 05:51 Labs: Abnormal lab results 09/30/22 10/01/22 10/01/22 Range/Units 13:05 05:51 05:51 WBC 31.0 H* (4.8-10.8) K/mm3 RBC 2.83 L (4.60-6.20) M/mm3 Hgb 8.5 L (14.1-18.0) g/dL Hct 27.3 L (42.0-52.0) % MCV 96.4 H (80-94) fl MCHC 31.3 L (31.8-35.4) g/dL RDW 20.8 H (11.5-17.5) % Neut % (Auto) 94.2 H (37.0-80.0) % Lymph % (Auto) 3.3 L (10-50) % Neut # (Auto) 29.2 H (1.8-7.8) K/mm3 Neutrophils % (Manual) 86 H (42-76) % Lymphocytes % (Manual) 4 L (10-50) % ABG pH 7.47 H (7.35-7.45) mmol/L ABG pCO2 30.3 L (35.0-45.0) m
[2022-10-01 12:17] LABS: POC Glucose,Bedside 268 (70-110)
--- NOTE | 2022-10-01 12:32 | EXP.ACUTE.PN ---
Subjective *Date: 10/01/22 *Time: 19:44 Interval history: Patient remained afebrile overnight. Improvement in swelling noted on exam this morning. Requiring minimal vent settings. No further bleeding from right ear. Medical Exam Vital signs and Labs for Last 24 Hours: Vital Signs Temp Pulse Pulse Resp BP BP Pulse Ox 10/01/22 12:00 113 H 100 10/01/22 12:00 113 H 20 149/80 H 100 10/01/22 11:00 98 H 16 145/78 H 100 10/01/22 10:00 92 H 19 157/86 H 100 10/01/22 09:00 73 19 146/78 H 100 10/01/22 08:00 74 18 112/56 L 100 10/01/22 08:00 74 18 100 10/01/22 08:00 96.1 F L 10/01/22 06:47 78 18 89/48 L 100 10/01/22 06:00 75 18 91/51 L 100 10/01/22 05:00 74 18 91/69 L 98 10/01/22 04:00 18 100 10/01/22 04:00 70 10/01/22 03:38 18 99 10/01/22 04:00 99.2 F 73 18 128/72 100 10/01/22 03:00 75 18 108/57 L 99 10/01/22 02:00 74 18 111/66 99 10/01/22 02:11 18 99 10/01/22 00:00 70 10/01/22 00:00 97.9 F 74 18 109/58 L 99 10/01/22 00:00 18 99 09/30/22 18:40 97 09/30/22 23:29 18 99 10/01/22 01:00 75 18 111/60 99 09/30/22 23:00 73 18 104/61 L 99 09/30/22 20:00 80 09/30/22 22:00 77 18 91/52 L 99 09/30/22 21:41 18 98 09/30/22 20:00 18 98 09/30/22 21:00 79 18 89/52 L 98 09/30/22 20:00 98.0 F 77 18 94/57 L 99 09/30/22 20:35 18 09/30/22 19:00 82 18 90/54 L 98 09/30/22 18:32 18 97 09/30/22 13:00 100.1 F H 180/120 H 190/110 H 09/30/22 16:00 87 09/30/22 17:13 98.6 F 09/30/22 18:00 83 18 98/53 L 97 09/30/22 17:00 86 18 105/59 L 97 09/30/22 16:30 91 H 18 118/68 98 09/30/22 16:00 87 18 96/52 L 97 09/30/22 15:30 89 18 98/52 L 99 09/30/22 15:00 90 18 116/70 98 09/30/22 14:40 87 18 92/51 L 98 09/30/22 14:30 88 18 86/46 L 96 09/30/22 14:20 90 18 85/48 L 100 09/30/22 14:12 92 H 18 85/46 L 98 09/30/22 14:06 92 H 18 79/42 L 100 09/30/22 14:04 93 H 18 84/42 L 98 09/30/22 14:00 61 18 86/47 L 100 09/30/22 13:30 99 H 24 110/60 99 09/30/22 13:16 102 H 22 142/67 H 100 09/30/22 13:04 102 H 24 148/76 H 96 09/30/22 18:00 09/30/22 12:48 111 H 22 163/83 H 100 09/30/22 16:30 88 100 09/30/22 13:30 85 100 09/30/22 14:00 09/30/22 15:57 110 H 09/30/22 12:45 24 100 FiO2 10/01/22 12:00 10/01/22 12:00 10/01/22 11:00 10/01/22 10:00 10/01/22 09:00 30 10/01/22 08:00 30 10/01/22 08:00 30 10/01/22 08:00 10/01/22 06:47 35 10/01/22 06:00 35 10/01/22 05:00 35 10/01/22 04:00 35 10/01/22 04:00 10/01/22 03:38 35 10/01/22 04:00 35 10/01/22 03:00 35 10/01/22 02:00 35 10/01/22 02:11 35 10/01/22 00:00 10/01/22 00:00 35 10/01/22 00:00 35 09/30/22 18:40 35 09/30/22 23:29 35 10/01/22 01:00 35 09/30/22 23:00 35 09/30/22 20:00 09/30/22 22:00 35 09/30/22 21:41 35 09/30/22 20:00 35 09/30/22 21:00 35 09/30/22 20:00 35 09/30/22 20:35 35 09/30/22 19:00 09/30/22 18:32 35 09/30/22 13:00 09/30/22 16:00 09/30/22 17:13 09/30/22 18:00 09/30/22 17:00 09/30/22 16:30 09/30/22 16:00 09/30/22 15:30 09/30/22 15:00 09/30/22 14:40 09/30/22 14:30 09/30/22 14:20 09/30/22 14:12 09/30/22 14:06 09/30/22 14:04 09/30/22 14:00 09/30/22 13:30 09/30/22 13:16 09/30/22 13:04 09/30/22 18:00 35 09/30/22 12:48 09/30/22 16:30 09/30/22 13:30 09/30/22 14:00 35 09/30/22 15:57 09/30/22 12:45 50 Intake and Output 09/30/22 10/01/22 10/01/22 23:59 07:59 15:59 Intake Total 1106 / 1381 179 / 212 33 / 212 Output Total 875 / 1625 650 / 1455 805 / 1455 Balance 231 / -244 -471 / -1243 -772 / -1243 Intake: In
[2022-10-01 17:44] LABS: POC Glucose,Bedside 230 (70-110)
--- NOTE | 2022-10-01 18:32 | PC.NURSE ---
SBT late this morning until early afternoon, was restless, and became tachy, sedation restarted at 1317, pt has been lightly sedated since, since SBT HR has returned to 86-94, SBP 98-135, pt has been turned Q2, has had 965 mL of urine out this shift via sharma, swelling to face has improved
--- NOTE | 2022-10-01 20:21 | PC.NURSE ---
Pt has a rectal temp of 101.0, no Tylenol ordered. Spoke with Margarito, hospitalist, and she stated she would put in an order for Tylenol 650mg PO tablet via OG tube.
[2022-10-01 21:00] LABS: POC Glucose,Bedside 189 (70-110)
[2022-10-02] VITALS (32 sets, daily range): BP systolic 99–171; BP diastolic 48–89; PULSE 70–121; RESP 15–21; TEMP 36.6–37.6; O2SAT 95–100; BMI 23.6
--- NOTE | 2022-10-02 05:49 | PC.NURSE ---
Pt has rested well and tolerated the vent t/o the night. Occasional periods of coughing and biting down on the ETT tube. Sedation has been weaned t/o the night. LS remain diminshed. Vent settings unchanged from beginning of shift. Minimal suctioning required. Oral care given. Remains NSR on telemetry. Edema to right side of face remains, is warm to the touch and slightly redenned. Right ear is swollen and has blisters appearing. Pictures taken - see wound note. Small amount of bloody/serous drainage noted from right ear. Right side of face has been massaged frequently this shift, and pus like drainage suctioned with yonker from mouth. Pt has been turned q2 hours. Legs elevated. Mittens in place. Propofol currently infusing at 20mcg and Fentanyl infusing at 10mcg. Has had adequate urine output this shift. No bm noted. Pt had a temp of 101.3 at beginning of shift, was given tylenol per OG tube, no further fevers noted. Received bath and bed change. No acute distress noted, will continue to monitor.
--- NOTE | 2022-10-02 06:12 | PC.WOUNDNOTE ---
Bruise on chest skin tear LFA (R) ear. Blisters present
[2022-10-02 06:51] LABS: POC Glucose,Bedside 190 (70-110)
[2022-10-02 06:54] LABS: Basophils # 0.1 K/mm3 (0-0.2); Basophils % 0.3 % (0.1-2.0); Eosinophils # 0.3 K/mm3 (0.0-0.4); Hematocrit 30.4 % (42.0-52.0); Hemoglobin 9.6 g/dL (14.1-18.0); Lymphocytes % 6.4 % (10-50); Mean Corpuscular HGB Conc 31.5 g/dL (31.8-35.4); Mean Corpuscular Hemoglobin 30.3 pg (27.0-31.2); Mean Corpuscular Volume 96.4 fl (80-94); Mean Platelet Volume 9.5 fl (7.4-10.4); Monocytes # 0.5 K/mm3 (0.1-1.0); Monocytes % 1.5 % (1.7-9.3); Neutrophils # 27.6 K/mm3 (1.8-7.8); Neutrophils % 90.8 % (37.0-80.0); Platelet Count 504 K/mm3 (142-424); Red Blood Count 3.15 M/mm3 (4.60-6.20); Red Cell Distribution Width 21.1 % (11.5-17.5); White Blood Count 30.4 K/mm3 (4.8-10.8)
[2022-10-02 07:00] LABS: MANUAL DIFFERENTIAL MANUAL DIFFERENTIAL (MANUAL DIFF)
--- NOTE | 2022-10-02 07:08 | PC.NURSE ---
RESP CARE NOTE: Cuff leak test performed, and it was positive for a cuff leak. Inspiratory Vt at 438ml and Exhaled Vt at 0ml, with positive gurgle. Cuff re-inflated without issue. Will continue to wean for SBT trial.
[2022-10-02 07:33] LABS: Chloride 109 mmol/L (98-107); Potassium 5.4 mmoL/L (3.5-5.1); Sodium 138 mmol/L (136-145)
[2022-10-02 07:36] LABS: Alanine Aminotransferase 46 U/L (12-78); Albumin Level 2.8 g/dl (3.5-5.0); Albumin/Globulin Ratio 0.9 (1.1-1.8); Alkaline Phosphatase 111 U/L (38-126); Anion Gap 17.4 mEq/L (5-15); Aspartate Amino Transferase 58 U/L (17-59); Bilirubin,Total 1.3 mg/dl (0.2-1.3); Blood Urea Nitrogen 17 mg/dl (9-20); Carbon Dioxide 17 mmol/L (22.0-30.0); Chol/HDL Ratio 3.9 (1-3.5); Cholesterol 105 mg/dl (140-200); Creatinine Clearance Estimated 59 mL/min (50-200); Estimated Glomerular Filt Rate 71 ml/min (>60); GFR (African American) 86 ML/MIN (>60); Globulin 3.1 g/dL (1.3-3.2); HDL Cholesterol 27 mg/dl (40-60); Total Protein,Serum 5.9 g/dl (6.3-8.2); Triglycerides 174 mg/dl (30-150); VLDL Cholesterol 35 mg/dL (0-40)
[2022-10-02 07:37] LABS: Calcium 7.6 mg/dl (8.4-10.2); Glucose 180 mg/dl (74-100)
--- NOTE | 2022-10-02 08:16 | EXP.ACUTE.PN ---
Subjective *Date: 10/02/22 *Time: 19:14 Interval history: Remains intubated. On morning rounds, sedation was off and he was tolerating spontaneous breathing trial. Unfortunately was unable to extubate today. Back on sedation this afternoon when I reexamined him. Extensive discussion with family at bedside about case. Swelling of face improving. Hemodynamically stable. Has had intermittent fevers. Tube feeds initiated today, appears to be tolerating so far. Medical Exam Vital signs and Labs for Last 24 Hours: Vital Signs Temp Pulse Pulse Resp BP Pulse Ox FiO2 10/02/22 06:00 30 10/02/22 08:00 110 H 18 128/62 100 10/02/22 07:00 121 H 18 144/72 H 99 10/02/22 06:00 99 H 18 123/59 L 95 30 10/02/22 05:40 18 98 30 10/02/22 05:00 84 18 120/54 L 99 30 10/02/22 04:00 80 10/02/22 04:00 18 100 30 10/02/22 03:33 18 99 30 10/02/22 00:00 70 10/01/22 20:00 100 H 10/02/22 01:42 18 100 30 10/02/22 01:00 82 18 103/48 L 100 30 10/01/22 23:00 86 18 97/50 L 100 30 10/01/22 22:00 99.9 F H 82 18 101/53 L 98 30 10/01/22 21:37 18 100 30 10/01/22 20:00 18 100 30 10/01/22 21:00 100.1 F H 80 18 92/46 L 100 30 10/01/22 20:00 101.0 F H 94 H 18 141/66 H 100 30 10/01/22 19:41 99 30 10/01/22 19:40 18 99 30 10/02/22 03:53 97.8 F 83 18 122/55 L 100 30 10/02/22 02:00 100 30 10/02/22 02:54 82 18 99/50 L 100 30 10/02/22 02:00 83 18 105/52 L 100 30 10/02/22 00:00 18 100 30 10/02/22 00:00 99.0 F 86 18 99/52 L 30 10/01/22 19:00 94 H 18 140/68 100 10/01/22 18:00 92 H 18 120/57 L 100 10/01/22 17:00 94 H 18 135/67 100 10/01/22 16:00 93 H 10/01/22 16:00 94 H 100 10/01/22 16:00 94 H 18 118/59 L 100 10/01/22 15:00 91 H 18 111/59 L 100 10/01/22 12:00 118 H 10/01/22 14:00 86 17 98/52 L 99 10/01/22 13:00 112 H 18 129/82 100 10/01/22 12:00 98.3 F 10/01/22 13:15 21 100 30 10/01/22 11:05 13 97 30 10/01/22 12:00 113 H 100 10/01/22 12:00 113 H 20 149/80 H 100 10/01/22 11:00 98 H 16 145/78 H 100 10/01/22 10:00 92 H 19 157/86 H 100 10/01/22 09:00 73 19 146/78 H 100 30 Intake and Output 10/01/22 10/02/22 10/02/22 23:59 07:59 15:59 Intake Total 731 / 1005 409 / 518 109 / 518 Output Total 335 / 1930 430 / 475 45 / 475 Balance 396 / -925 - 43 64 / 43 Intake: Intake, Tube Irrigant Amount 30 / 30 Intake, Other Amount 20 / 20 30 / 30 Intake, Total IV Amount 681 / 955 379 / 488 109 / 488 Cefepime HCl 2 gm In 0.9 % 100 / 100 100 / 200 100 / 200 Sodium Chloride 100 ml @ 200 mls/hr IV Q12H [facility] Rx#:[id number] Fentanyl Citrate/Pf 1,000 mcg In 0.9 % Sodium Chloride 80 ml @ 12.5 MCG/HR 1.25 mls/hr IV . Q24H [facility] Rx#:[id number] Fentanyl Citrate/Pf 1,000 mcg In 0.9 % Sodium Chloride 80 ml @ 25 MCG/HR 2.5 mls/hr IV .Q24H [facility] Rx#:[id number] Metronidaz/Sod Chl 500 mg In 100 / 100 100 / 100 100 ml @ 100 mls/hr IV Q8H T[facility] Rx#:[id number] Vancomycin/Water For Inj (Peg) 300 / 300 1.5 gm In 300 ml @ 150 mls/hr IV Q24H [facility] Rx#:[id number] propofoL 100 ml @ 10 MCG/KG/MIN 168 / 423 167 / 175 8 / 175 4.502 mls/hr IV .[id number] TRE[facility] Rx#:[id number] Output: Output, Urine Amount (Catheter) 335 / 1830 430 / 475 45 / 475 Kim 335 / 1830 430 / 475 45 / 475 Other: Intake, Other Source Saline Solution Saline Solution Weight 74.9 kg Patient Weight 10/02/22 23:59 Weight 74.9 kg Laboratory Results - last 24 hr 10/01/22 05:51: Total Counted 100, Neutrophils % (Manual) 86 H, Band Neutrophils % 7.0, Lymphocytes % (Manual) 4 L, Monocytes % (Manual) 3, Platelet Estimate Normal, Poikil
[2022-10-02 08:42] LABS: Anisocytosis 1+; Lymphocytes % 4 % (10-50); Monocytes % 2 % (2-9); Neutrophils % 94 % (42-76); Total Cells Counted 100
[2022-10-02 08:43] LABS: Hypochromasia 1+; Microcytosis 1+; Platelet Estimate Normal
--- NOTE | 2022-10-02 09:50 | EXP.PULM.PN ---
Subjective *Date: 10/02/22 *Time: 11:42 Interval history: No acute respiratory events overnight. Continues to remain on minimal ventilator settings. Pulmonology Exam Inpatient Vital signs and Labs for Last 24 Hours: Temp Pulse Resp BP Pulse Ox FiO2 98.8 F 110 H 18 128/62 100 30 10/02/22 08:00 10/02/22 08:00 10/02/22 08:00 10/02/22 08:00 10/02/22 08:00 10/02/22 06:00 Laboratory Results - last 24 hr 10/01/22 11:22: POC Glucose 268 H 10/01/22 17:24: POC Glucose 230 H 10/01/22 19:59: POC Glucose 189 H 10/02/22 05:56: WBC 30.4 H*, RBC 3.15 L, Hgb 9.6 L, Hct 30.4 L, MCV 96.4 H, MCH 30.3, MCHC 31.5 L, RDW 21.1 H, Plt Count 504 H D, MPV 9.5, Neut % (Auto) 90.8 H, Lymph % (Auto) 6.4 L, [place] % (Auto) 1.5 L, Eos % (Auto) 1.0, Baso % (Auto) 0.3, Neut # (Auto) 27.6 H, Lymph # (Auto) 2.0, [place] # (Auto) 0.5, Eos # (Auto) 0.3, Baso # (Auto) 0.1, Total Counted 100, Neutrophils % (Manual) 94 H, Lymphocytes % (Manual) 4 L, Monocytes % (Manual) 2, Platelet Estimate Normal, Hypochromasia 1+, Anisocytosis 1+, Microcytosis 1+ 10/02/22 05:56: Sodium 138, Potassium 5.4 H, Chloride 109 H, Carbon Dioxide 17 L, Anion Gap 17.4 H, BUN 17, Creatinine 1.00, Estimated Creat Clear 59, Estimated GFR 71, Est GFR ( Amer) 86, Glucose 180 H, Calcium 7.6 L, Total Bilirubin 1.3, AST 58 D, ALT 46, Alkaline Phosphatase 111, Total Protein 5.9 L, Albumin 2.8 L, Globulin 3.1, Albumin/Globulin Ratio 0.9 L 10/02/22 05:56: Triglycerides 174 H, Cholesterol 105 L, LDL Cholesterol Direct 44.50 L, VLDL Cholesterol 35, HDL Cholesterol 27 L, Cholesterol/HDL Ratio 3.9 H 10/02/22 06:38: POC Glucose 190 H I & O for Labs for Last 24 Hours: Intake & Output 09/29/22 09/30/22 10/01/22 10/02/22 23:59 23:59 23:59 23:59 Intake Total 1346 / 1381 979 / 1005 518 / 518 Output Total 1525 / 1625 1870 / 1930 475 / 475 Balance -179 / -244 -891 / -925 43 / 43 Weight 165 lb 7 oz 164 lb 7.085 oz 165 lb 2.02 oz Microbiology Reports for the Last 24 Hours: Microbiology 09/30/22 12:46 Sputum - Endotracheal Tube Aspirate Gram Stain - Final 09/30/22 12:46 Sputum - Endotracheal Tube Aspirate Sputum Culture - Preliminary 10/01/22 10:09 Mouth - Abscess Gram Stain - Final 10/01/22 10:09 Mouth - Abscess Abscess Culture - Preliminary Gram Positive Cocci 09/30/22 00:15 Blood Blood Culture - Preliminary NO GROWTH AFTER 48 HOURS 09/30/22 00:15 Blood Blood Culture - Preliminary NO GROWTH AFTER 48 HOURS Constitutional: Present moderate distress Comment:: Intubated and Sedated Eyes: Present other (Periorbital swelling) ENT: Absent normal exam Comment:: Right-sided face and neck swelling significantly improved from prior periorbital swelling almost resolved Neck: Present trachea midline; Absent normal inspection Respiratory: Present patient mechanically ventilated, prolonged expiratory phase, rhonchi and wheezes Cardiac: Present S1/S2 and Tachycardia GI: Present soft; Absent distention or tenderness Skin: Present intact; Absent cyanosis Neuro: Absent alert, awake or oriented x 3 Comment:: Intubated and sedated Extremities: Present normal inspection; Absent clubbing or cyanosis Psychiatric: Present unable to assess Assessment and Plan *Assessment and plan (1) On mechanically assisted ventilation: Status: Acute Category: Medical Code(s): Z99.11 - Dependence on respirator [ventilator] status (2) COVID-19: Status: Acute Category: Medical Code(s): U07.1 - COVID-19 Plan 81-year-old male recently admitted to the hospital after left heart cath and stenting. Also had a pericardial effusion drained. Patient was also diagnosed with COVID-19 during his recent hospital admission, needing increasing oxygen requirements. Denies any prior use of oxygen As per patient's family. He presented to the hospital complaining of worsening mentation along wi
--- NOTE | 2022-10-02 10:29 | DIET.NUTRFU ---
Addendum entered by Christina Nunez, RD, LD 10/02/22 14:10: Patient was unable to follow instructions, unable to extubate. Nursing feels maybe still could extubate today, but not sure. If not recommend starting nutrition through OG tube. 10/03 will be 3 days NPO with only, 500ml of lactated ringers was given on 09/30. IVF is provided with multiple medications that may contribute to hydration. Todays labs reviewed. Recommend TF to provide nutrition support at glucerna 1.0 start at 20ml/hr and increase to goal rate of 80ml/hr to provide 1920ml/1920kcal/80gm protein and 1638ml/day. Will continue to monitor POC Original Note: Patient continues to be NPO since 09/30 secondary to intubation. Reviewed diet status with provider today, plans to extubate today and will wait for [employer] eval. Was on regular consistency last admit.
[2022-10-02 12:24] LABS: POC Glucose,Bedside 231 (70-110)
[2022-10-02 16:51] LABS: Vancomycin,Trough 10.6 ug/mL (5.0-10.0)
[2022-10-02 17:19] LABS: POC Glucose,Bedside 170 (70-110)
--- NOTE | 2022-10-02 17:27 | PC.NURSE ---
NOTIFIED NIGHT WATCH OF VANC TROUGH RESULTS. WAS INSTRUCTED IT WAS OK TO GO AHEAD AND ADMINISTER VANC
--- NOTE | 2022-10-02 19:14 | PC.NURSE ---
Pt remains intubated. Propofol is at 25 mcg/kg/min, fentanyl is 20 mcg/hr and pt is tolerating well. He will awaken to touch but is unable to follow commands. Tube feed started at 20mls/hr per dietary recommendation. Per Dr Molina, 60mls flushes q4hrs. Turn off at 0400 in preparation of extubation. +2 pitting edema noted to right face/neck. It has been massaged q2hrs and oral cavity suctioned with purulent drainage noted. His sharma is to bedside draining morris colored urine, sediment noted. He was turned q2hrs. Bed alarm set. It is locked and in the lowest position, call light is within reach.
[2022-10-03] VITALS (25 sets, daily range): BP systolic 84–169; BP diastolic 49–95; PULSE 80–130; RESP 13–22; TEMP 36.7–37.4; O2SAT 90–100; BMI 23.7
[2022-10-03 00:50] LABS: POC Glucose,Bedside 178 (70-110)
--- NOTE | 2022-10-03 04:46 | PC.NURSE ---
Pt remains edematous to (L) side of face and ear. Edema also noted to LUE. Pt (R) face massaged and oral care , suctioning provided. Vent settings are as follows: AC FiO2 30, TV 440, R 18, PEEP 5. Pt remains on propofol @ 25 mcg/kg/min. Fentanyl @ 20 mcg/hr. F/C draining to bedside. Medications administered per dec.
[2022-10-03 06:03] LABS: POC Glucose,Bedside 173 (70-110)
[2022-10-03 06:31] LABS: Peripheral Smear Review Scanned Result
[2022-10-03 07:32] LABS: Basophils # 0.1 K/mm3 (0-0.2); Basophils % 0.4 % (0.1-2.0); Eosinophils # 0.4 K/mm3 (0.0-0.4); Eosinophils % 1.7 % (0.1-12.0); Hemoglobin 8.7 g/dL (14.1-18.0); Lymphocytes # 1.9 K/mm3 (0.7-4.5); Lymphocytes % 8.6 % (10-50); Mean Corpuscular Hemoglobin 30.1 pg (27.0-31.2); Mean Corpuscular Volume 94.1 fl (80-94); Mean Platelet Volume 9.8 fl (7.4-10.4); Monocytes # 0.5 K/mm3 (0.1-1.0); Monocytes % 2.1 % (1.7-9.3); Neutrophils # 18.9 K/mm3 (1.8-7.8); Platelet Count 485 K/mm3 (142-424); Red Blood Count 2.87 M/mm3 (4.60-6.20); Red Cell Distribution Width 20.9 % (11.5-17.5); White Blood Count 21.7 K/mm3 (4.8-10.8)
[2022-10-03 07:36] LABS: Chloride 110 mmol/L (98-107)
[2022-10-03 07:37] LABS: Potassium 3.7 mmoL/L (3.5-5.1); Sodium 138 mmol/L (136-145)
[2022-10-03 07:39] LABS: Alanine Aminotransferase 35 U/L (12-78); Alkaline Phosphatase 88 U/L (38-126); Aspartate Amino Transferase 25 U/L (17-59); Bilirubin,Total 0.9 mg/dl (0.2-1.3); Blood Urea Nitrogen 14 mg/dl (9-20); Creatinine Clearance Estimated 60 mL/min (50-200); Estimated Glomerular Filt Rate 71 ml/min (>60); GFR (African American) 86 ML/MIN (>60); MANUAL DIFFERENTIAL MANUAL DIFFERENTIAL (MANUAL DIFF)
[2022-10-03 07:40] LABS: Albumin Level 2.7 g/dl (3.5-5.0); Albumin/Globulin Ratio 0.8 (1.1-1.8); Anion Gap 8.7 mEq/L (5-15); Calcium 7.8 mg/dl (8.4-10.2); Carbon Dioxide 23 mmol/L (22.0-30.0); Globulin 3.2 g/dL (1.3-3.2); Glucose 186 mg/dl (74-100); Total Protein,Serum 5.9 g/dl (6.3-8.2)
--- NOTE | 2022-10-03 07:55 | DIET.NUTRFU ---
Addendum entered by Christina Nuenz RD, BARBARA 10/03/22 11:27: no BM since admit, will review with nursing Addendum entered by Christina Nunez RD, BARBARA 10/03/22 11:22: TF at 20ml/hr will provide 480ml/480kcal/20gm protein and 409ml formula water. No IVF running, will increase flush to 80ml Q6H to provide 480ml for total of 960ml/day. Anticipate extubation today, will then need bedside swallow eval post extubation for oral intake. Original Note: Patient was started on TF 10/02 at 19:14, tolerated Glucerna at 20ml/hr. Tf was then put on hold at 400 for SBT. Upon visit this AM respiratory is trying another SBT. If unsuccessful will restart TF. Patient has been unable to follow directions when trying SBT. Received propofol 10/02 provided 88ml, 96.8kcal. +2 edema continues to be noted to face. Urine output noted 1830ml on 10/02. No BM noted since admit will review with provider. Labs reviewed, hydration WNL.
--- NOTE | 2022-10-03 08:30 | EXP.PHA.PN ---
Subjective *Date: 10/03/22 *Time: 08:30 Medical Exam Vital signs and Labs for Last 24 Hours: Vital Signs Temp Pulse Pulse Resp BP Pulse Ox FiO2 10/03/22 07:40 13 100 30 10/03/22 06:54 96 H 18 155/86 H 100 10/02/22 20:00 90 10/03/22 05:50 18 100 30 10/03/22 05:50 100 10/03/22 06:00 82 18 138/54 L 100 10/03/22 04:00 90 10/03/22 00:00 80 10/03/22 05:00 90 18 136/61 100 10/03/22 04:00 98.5 F 90 18 144/64 H 100 10/03/22 04:00 100 30 10/03/22 03:00 86 18 127/55 L 100 10/03/22 03:01 18 100 30 10/03/22 00:00 100 30 10/03/22 02:00 83 18 84/50 L 100 10/02/22 20:00 100 30 10/03/22 01:00 83 18 108/49 L 100 10/03/22 00:00 98.2 F 87 18 136/63 100 10/02/22 23:00 87 18 128/59 L 100 10/02/22 22:00 79 18 144/71 H 100 10/02/22 21:00 91 H 18 124/59 L 100 10/02/22 20:00 98.1 F 100 H 18 159/66 H 100 10/03/22 01:09 18 100 30 10/02/22 23:18 18 100 30 10/02/22 21:40 18 100 30 10/02/22 20:00 18 30 10/02/22 16:00 99.5 F 10/02/22 12:00 99.6 F 10/02/22 18:40 104 H 18 156/78 H 100 10/02/22 18:28 100 40 10/02/22 18:28 19 100 30 10/02/22 18:00 104 H 18 161/69 H 100 10/02/22 18:00 30 10/02/22 16:00 100 H 10/02/22 17:00 105 H 18 141/70 H 100 10/02/22 16:00 105 H 18 153/74 H 100 10/02/22 12:00 110 H 10/02/22 13:00 108 H 18 171/72 H 99 10/02/22 14:45 21 100 30 10/02/22 10:10 15 100 30 10/02/22 12:00 107 H 18 157/63 H 100 10/02/22 11:00 97 H 18 146/64 H 100 10/02/22 10:00 113 H 18 166/89 H 100 10/02/22 09:00 111 H 18 149/85 H 100 Intake and Output 10/02/22 10/03/22 10/03/22 23:59 07:59 15:59 Intake Total 378 / 1040 322 / 322 Output Total 805 / 1955 530 / 530 Balance -427 / -915 -208 / -208 Intake: Intake, Tube Feeding Amount 89 / 109 120 / 120 Intake, Total IV Amount 289 / 901 202 / 202 Cefepime HCl 2 gm In 0.9 % 100 / 300 Sodium Chloride 100 ml @ 200 mls/hr IV Q12H [facility] Rx#:[id number] Fentanyl Citrate/Pf 1,000 mcg 14 / 14 In 0.9 % Sodium Chloride 80 ml @ 12.5 MCG/HR 1.25 mls/hr IV . Q24H [facility] Rx#:[id number] Metronidaz/Sod Chl 500 mg In 100 / 300 100 / 100 100 ml @ 100 mls/hr IV Q8H [facility] Rx#:[id number] propofoL 100 ml @ 10 MCG/KG/MIN 72 / 266 88 / 88 4.502 mls/hr IV .[id number] TRE[facility] Rx#:[id number] Output: Output, Urine Amount (Catheter) 805 / 1955 530 / 530 Kim 805 / 1955 530 / 530 Other: Number of Unmeasured Voids 0 0 Weight 75.2 kg Patient Weight 10/03/22 23:59 Weight 75.2 kg Laboratory Results - last 24 hr 10/02/22 05:56: Total Counted 100, Neutrophils % (Manual) 94 H, Lymphocytes % (Manual) 4 L, Monocytes % (Manual) 2, Platelet Estimate Normal, Hypochromasia 1+, Anisocytosis 1+, Microcytosis 1+ 10/02/22 11:58: POC Glucose 231 H 10/02/22 16:15: Vancomycin Trough 10.6 H 10/02/22 17:05: POC Glucose 170 H 10/02/22 20:34: POC Glucose 178 H 10/03/22 05:03: POC Glucose 173 H 10/03/22 07:00: WBC 21.7 H* D, RBC 2.87 L, Hgb 8.7 L, Hct 27.0 L, MCV 94.1 H, MCH 30.1, MCHC 32.0, RDW 20.9 H, Plt Count 485 H, MPV 9.8, Neut % (Auto) 87.0 H, Lymph % (Auto) 8.6 L, [place] % (Auto) 2.1, Eos % (Auto) 1.7, Baso % (Auto) 0.4, Neut # (Auto) 18.9 H, Lymph # (Auto) 1.9, [place] # (Auto) 0.5, Eos # (Auto) 0.4, Baso # (Auto) 0.1 10/03/22 07:00: Sodium 138, Potassium 3.7 D, Chloride 110 H, Carbon Dioxide 23, Anion Gap 8.7, BUN 14, Creatinine 1.00, Estimated Creat Clear 60, Estimated GFR 71, Est GFR ( Amer) 86, Glucose 186 H, Calcium 7.8 L, Total Bilirubin 0.9, AST 25 D, ALT 35, Alkaline Phosphatase 88, Total Protein 5.9 L, Albumin 2.7 L, Globulin 3.2, Albumin/Globulin Ratio 0.8 L I & O for Labs for Last 24 H
[2022-10-03 08:34] LABS: Lymphocytes % 8 % (10-50); Monocytes % 6 % (2-9); Neutrophils % 86 % (42-76); Total Cells Counted 100
[2022-10-03 08:35] LABS: Ovalocytes 1+; Platelet Estimate Moderate Increase; RBC Morphology Normal
--- NOTE | 2022-10-03 09:35 | EXP.PULM.PN ---
Subjective *Date: 10/03/22 *Time: 12:08 Interval history: No acute respiratory events overnight. Continues to remain on minimal ventilator settings. Pulmonology Exam Inpatient Vital signs and Labs for Last 24 Hours: Temp Pulse Resp BP Pulse Ox FiO2 98.8 F 96 H 13 155/86 H 100 30 10/03/22 08:00 10/03/22 06:54 10/03/22 07:40 10/03/22 06:54 10/03/22 07:40 10/03/22 07:40 Laboratory Results - last 24 hr 10/02/22 11:58: POC Glucose 231 H 10/02/22 16:15: Vancomycin Trough 10.6 H 10/02/22 17:05: POC Glucose 170 H 10/02/22 20:34: POC Glucose 178 H 10/03/22 05:03: POC Glucose 173 H 10/03/22 07:00: WBC 21.7 H* D, RBC 2.87 L, Hgb 8.7 L, Hct 27.0 L, MCV 94.1 H, MCH 30.1, MCHC 32.0, RDW 20.9 H, Plt Count 485 H, MPV 9.8, Neut % (Auto) 87.0 H, Lymph % (Auto) 8.6 L, [place] % (Auto) 2.1, Eos % (Auto) 1.7, Baso % (Auto) 0.4, Neut # (Auto) 18.9 H, Lymph # (Auto) 1.9, [place] # (Auto) 0.5, Eos # (Auto) 0.4, Baso # (Auto) 0.1, Total Counted 100, Neutrophils % (Manual) 86 H, Lymphocytes % (Manual) 8 L, Monocytes % (Manual) 6, Platelet Estimate Moderate increase, RBC Morphology Normal, Ovalocytes 1+ 10/03/22 07:00: Sodium 138, Potassium 3.7 D, Chloride 110 H, Carbon Dioxide 23, Anion Gap 8.7, BUN 14, Creatinine 1.00, Estimated Creat Clear 60, Estimated GFR 71, Est GFR ( Amer) 86, Glucose 186 H, Calcium 7.8 L, Total Bilirubin 0.9, AST 25 D, ALT 35, Alkaline Phosphatase 88, Total Protein 5.9 L, Albumin 2.7 L, Globulin 3.2, Albumin/Globulin Ratio 0.8 L I & O for Labs for Last 24 Hours: Intake & Output 09/30/22 10/01/22 10/02/22 10/03/22 23:59 23:59 23:59 23:59 Intake Total 1346 / 1381 979 / 1005 1004 / 1040 322 / 322 Output Total 1525 / 1625 1870 / 1930 1830 / 1955 530 / 530 Balance -179 / -244 -891 / -925 -826 / -915 -208 / -208 Weight 165 lb 7 oz 164 lb 7.085 oz 165 lb 2.02 oz 165 lb 12.602 oz Microbiology Reports for the Last 24 Hours: Microbiology 10/01/22 10:09 Mouth - Abscess Gram Stain - Final 10/01/22 10:09 Mouth - Abscess Abscess Culture - Final Staphylococcus aureus 09/30/22 12:46 Sputum - Endotracheal Tube Aspirate Gram Stain - Final 09/30/22 12:46 Sputum - Endotracheal Tube Aspirate Sputum Culture - Preliminary Constitutional: Present moderate distress Comment:: Intubated and Sedated Eyes: Present other (Periorbital swelling) ENT: Absent normal exam Comment:: Right-sided face and neck swelling significantly improved from prior periorbital swelling almost resolved Neck: Present trachea midline; Absent normal inspection Respiratory: Present patient mechanically ventilated, rhonchi and normal respiratory effort; Absent prolonged expiratory phase or wheezes Cardiac: Present S1/S2 and Tachycardia GI: Present soft; Absent distention or tenderness Skin: Present intact; Absent cyanosis Neuro: Present awake; Absent alert or oriented x 3 Comment:: Intubated and sedated Extremities: Present normal inspection; Absent clubbing or cyanosis Psychiatric: Present unable to assess Assessment and Plan *Assessment and plan (1) On mechanically assisted ventilation: Status: Acute Category: Medical Code(s): Z99.11 - Dependence on respirator [ventilator] status (2) COVID-19: Status: Acute Category: Medical Code(s): U07.1 - COVID-19 Plan 81-year-old male recently admitted to the hospital after left heart cath and stenting. Also had a pericardial effusion drained. Patient was also diagnosed with COVID-19 during his recent hospital admission, needing increasing oxygen requirements. Denies any prior use of oxygen As per patient's family. He presented to the hospital complaining of worsening mentation along with right-sided neck and facial swelling and was admitted to the hospital being treated for acute parotitis with Unasyn, his swelling and clinical condition gradually deteriorated eventually concerning for airway compramise, plan was made to intubate a
--- NOTE | 2022-10-03 09:42 | EXP.PHA.CONS ---
Pharmacy Consult Date: 10/03/22 Time: 09:43 Referring provider: DR OJEDA Reason for Consult:: VANCOMYCIN TROUGH LEVEL OBTAINED OVERNIGHT Allergies Allergy/AdvReac Type Severity Reaction Status Date / Time iodine Allergy Severe S-SWELLS-OR Verified 09/16/22 13:32 AL/THROAT shellfish derived Allergy Intermediate I-HIVES Verified 09/16/22 13:32 [From SHELLFISH (FOOD/DRUG)] From SHELLFISH (FOOD/DRUG) Allergy Intermediate I-HIVES Uncoded 09/16/22 13:32 Home Medications Medication Instructions Recorded Confirmed Type levothyroxine 112 mcg tablet 112 mcg PO DAILYDM hypothyroidism 08/15/19 09/30/22 History metformin 1,000 mg tablet 1,000 mg PO BID Diabetes 08/15/19 09/30/22 History gabapentin 400 mg tablet 400 mg PO BID Pain 09/16/22 09/30/22 History aspirin 81 mg tablet,delayed 81 mg PO DAILY CAD #30 tabs 09/24/22 09/30/22 Rx release ([place] Low Dose Aspirin) atorvastatin 40 mg tablet 40 mg PO HS High cholesterol 09/30/22 09/30/22 History clopidogrel 75 mg tablet 75 mg PO DAILY Blood thinner 09/30/22 09/30/22 History metoprolol succinate 50 mg 50 mg PO DAILY High blood pressure 09/30/22 09/30/22 History tablet,extended release 24 hr New Prescriptions to Start Prescriptions: Height: 1.78 m Weight: 75.2 kg Laboratory Results:: Laboratory Results - last 24 hr 10/02/22 11:58: POC Glucose 231 H 10/02/22 16:15: Vancomycin Trough 10.6 H 10/02/22 17:05: POC Glucose 170 H 10/02/22 20:34: POC Glucose 178 H 10/03/22 05:03: POC Glucose 173 H 10/03/22 07:00: WBC 21.7 H* D, RBC 2.87 L, Hgb 8.7 L, Hct 27.0 L, MCV 94.1 H, MCH 30.1, MCHC 32.0, RDW 20.9 H, Plt Count 485 H, MPV 9.8, Neut % (Auto) 87.0 H, Lymph % (Auto) 8.6 L, [place] % (Auto) 2.1, Eos % (Auto) 1.7, Baso % (Auto) 0.4, Neut # (Auto) 18.9 H, Lymph # (Auto) 1.9, [place] # (Auto) 0.5, Eos # (Auto) 0.4, Baso # (Auto) 0.1, Total Counted 100, Neutrophils % (Manual) 86 H, Lymphocytes % (Manual) 8 L, Monocytes % (Manual) 6, Platelet Estimate Moderate increase, RBC Morphology Normal, Ovalocytes 1+ 10/03/22 07:00: Sodium 138, Potassium 3.7 D, Chloride 110 H, Carbon Dioxide 23, Anion Gap 8.7, BUN 14, Creatinine 1.00, Estimated Creat Clear 60, Estimated GFR 71, Est GFR ( Amer) 86, Glucose 186 H, Calcium 7.8 L, Total Bilirubin 0.9, AST 25 D, ALT 35, Alkaline Phosphatase 88, Total Protein 5.9 L, Albumin 2.7 L, Globulin 3.2, Albumin/Globulin Ratio 0.8 L Medical History: Medical History (Updated 10/01/22 @ 09:07 by Gretta Steve APRN) Abnormal electrocardiogram [ECG] [EKG] Acute parotitis Altered mental status CAD (coronary artery disease) CHF (congestive heart failure) COVID-19 Dementia Diabetes mellitus DM type 2 (diabetes mellitus, type 2) Dyspnea Elevated troponin On mechanically assisted ventilation Perforation of coronary artery Pericardial effusion after operative procedure Severe sepsis with acute organ dysfunction Assessment and Plan Assessment and plan all Dx Assessment and Plan for all problems:: VANCOMYCIN TROUGH LEVEL OBTAINED OVERNIGHT. TROUGH LEVEL WAS 10.6 MCG/ML. RECOMMEND CONTINUING VANCOMYCIN 1500 MG Q24H. THANK YOU FOR THE CONSULT.
--- NOTE | 2022-10-03 11:47 | EXP.ACUTE.PN ---
Subjective *Date: 10/03/22 *Time: 20:17 Interval history: Stable on ventilator this morning, arousable but not agitated. Sedation held. Afebrile. Hemodynamically stable. No family at bedside this Medical Exam Vital signs and Labs for Last 24 Hours: Vital Signs Temp Pulse Pulse Resp BP Pulse Ox FiO2 10/03/22 08:00 98.8 F 10/03/22 07:40 13 100 30 10/03/22 06:54 96 H 18 155/86 H 100 10/02/22 20:00 90 10/03/22 05:50 18 100 30 10/03/22 05:50 100 10/03/22 06:00 82 18 138/54 L 100 10/03/22 04:00 90 10/03/22 00:00 80 10/03/22 05:00 90 18 136/61 100 10/03/22 04:00 98.5 F 90 18 144/64 H 100 10/03/22 04:00 100 30 10/03/22 03:00 86 18 127/55 L 100 10/03/22 03:01 18 100 30 10/03/22 00:00 100 30 10/03/22 02:00 83 18 84/50 L 100 10/02/22 20:00 100 30 10/03/22 01:00 83 18 108/49 L 100 10/03/22 00:00 98.2 F 87 18 136/63 100 10/02/22 23:00 87 18 128/59 L 100 10/02/22 22:00 79 18 144/71 H 100 10/02/22 21:00 91 H 18 124/59 L 100 10/02/22 20:00 98.1 F 100 H 18 159/66 H 100 10/03/22 01:09 18 100 30 10/02/22 23:18 18 100 30 10/02/22 21:40 18 100 30 10/02/22 20:00 18 30 10/02/22 16:00 99.5 F 10/02/22 12:00 99.6 F 10/02/22 18:40 104 H 18 156/78 H 100 10/02/22 18:28 100 40 10/02/22 18:28 19 100 30 10/02/22 18:00 104 H 18 161/69 H 100 10/02/22 18:00 30 10/02/22 16:00 100 H 10/02/22 17:00 105 H 18 141/70 H 100 10/02/22 16:00 105 H 18 153/74 H 100 10/02/22 12:00 110 H 10/02/22 13:00 108 H 18 171/72 H 99 10/02/22 14:45 21 100 30 10/02/22 12:00 107 H 18 157/63 H 100 Intake and Output 10/02/22 10/03/22 10/03/22 23:59 07:59 15:59 Intake Total 378 / 1040 322 / 322 Output Total 805 / 1955 530 / 530 Balance -427 / -915 -208 / -208 Intake: Intake, Tube Feeding Amount 89 / 109 120 / 120 Intake, Total IV Amount 289 / 901 202 / 202 Cefepime HCl 2 gm In 0.9 % 100 / 300 Sodium Chloride 100 ml @ 200 mls/hr IV Q12H TRELL Rx#:[id number] Fentanyl Citrate/Pf 1,000 mcg 14 / 14 In 0.9 % Sodium Chloride 80 ml @ 12.5 MCG/HR 1.25 mls/hr IV . Q24H TRELL Rx#:[id number] Metronidaz/Sod Chl 500 mg In 100 / 300 100 / 100 100 ml @ 100 mls/hr IV Q8H TRELL Rx#:[id number] propofoL 100 ml @ 10 MCG/KG/MIN 72 / 266 88 / 88 4.502 mls/hr IV .[id number] TRELL Rx#:[id number] Output: Output, Urine Amount (Catheter) 805 / 1955 530 / 530 Kim 805 / 1955 530 / 530 Other: Number of Unmeasured Voids 0 0 Weight 75.2 kg 75.2 kg Patient Weight 10/03/22 23:59 Weight 75.2 kg Laboratory Results - last 24 hr 10/02/22 11:58: POC Glucose 231 H 10/02/22 16:15: Vancomycin Trough 10.6 H 10/02/22 17:05: POC Glucose 170 H 10/02/22 20:34: POC Glucose 178 H 10/03/22 05:03: POC Glucose 173 H 10/03/22 07:00: WBC 21.7 H* D, RBC 2.87 L, Hgb 8.7 L, Hct 27.0 L, MCV 94.1 H, MCH 30.1, MCHC 32.0, RDW 20.9 H, Plt Count 485 H, MPV 9.8, Neut % (Auto) 87.0 H, Lymph % (Auto) 8.6 L, [place] % (Auto) 2.1, Eos % (Auto) 1.7, Baso % (Auto) 0.4, Neut # (Auto) 18.9 H, Lymph # (Auto) 1.9, [place] # (Auto) 0.5, Eos # (Auto) 0.4, Baso # (Auto) 0.1, Total Counted 100, Neutrophils % (Manual) 86 H, Lymphocytes % (Manual) 8 L, Monocytes % (Manual) 6, Platelet Estimate Moderate increase, RBC Morphology Normal, Ovalocytes 1+ 10/03/22 07:00: Sodium 138, Potassium 3.7 D, Chloride 110 H, Carbon Dioxide 23, Anion Gap 8.7, BUN 14, Creatinine 1.00, Estimated Creat Clear 60, Estimated GFR 71, Est GFR ( Amer) 86, Glucose 186 H, Calcium 7.8 L, Total Bilirubin 0.9, AST 25 D, ALT 35, Alkaline Phosphatase 88, Total Protein 5.9 L, Albumin 2.7 L, Globulin 3.2, Albumin/Globulin Ratio 0.8 L I & O for Labs
[2022-10-03 13:32] LABS: POC Glucose,Bedside 155 (70-110)
--- NOTE | 2022-10-03 14:57 | PC.NURSE ---
spoke with dr hale who stated that if patient remained stable until 1600 patient could come out of ICU to a Stepdown bed.
--- NOTE | 2022-10-03 19:36 | PC.NURSE ---
pt has had family at bedside off and on this shift. pt able to speak to family and staff, slightly confused in conversation. pt at times is combative with staff when attempting to perform care. pt dose not like nor appreciate oral care. when removing sharma cathether and placing brief on patient, he began to hit at staff. attempted to redirect pt. able to complete nursing task eventually. lungs are clear but diminished, bowel sounds are active in all quads. no bm noted. speech therapy guillermina entered for following shift.
--- NOTE | 2022-10-03 20:26 | ECG_ITS ---
APPROVED REPORT Exam: Resting ECG HR:121 bpm ECG Measurements Heart Rate 121 AXES QRSd 109 QRS 13 QT 353 T 40 QTc 425 Conclusion ATRIAL FIBRILLATION WITH RAPID VENTRICULAR RESPONSE LOW QRS VOLTAGE IN PRECORDIAL LEADS [QRS DEFLECTION < 1.0 mV IN CHEST LEADS] ANTEROSEPTAL ischemic changes have progressed since 09/15/22 tracing ABNORMAL ECG UNCONFIRMED REPORT Electronically signed by : Santos Nassar MD 10/04/2022 08:49:10
[2022-10-03 21:24] LABS: POC Glucose,Bedside 141 (70-110)
[2022-10-04] VITALS (9 sets, daily range): BP systolic 121–155; BP diastolic 54–82; PULSE 80–139; RESP 16–22; TEMP 36.6–37.1; O2SAT 95–100; BMI 23.8
--- NOTE | 2022-10-04 04:42 | ECG_ITS ---
APPROVED REPORT Exam: Resting ECG HR:89 bpm ECG Measurements Heart Rate 89 AXES SD 166 P 25 QRSd 94 QRS 34 QT 366 T 78 QTc 413 Conclusion Atrial fibrillation LOW QRS VOLTAGE IN EXTREMITY LEADS [QRS DEFLECTION < 0.5 mV IN LIMB LEADS] Old anteroseptal changes ABNORMAL ECG UNCONFIRMED REPORT Electronically signed by : Santos Nassar MD 10/04/2022 08:47:19
[2022-10-04 05:54] LABS: POC Glucose,Bedside 149 (70-110)
--- NOTE | 2022-10-04 06:25 | PC.NURSE ---
Pt's HR was noted to be 120s to 130s. EKG was obtained and noted to be in afib. Brittney LUMBER CUTTER notified. New orders received to place pt on diltiazem gtt. Titrated per protocol. Pt was noted this AM to be NSR. EKG obtained and confirmed that pt was back in NSR. Pt unable to take PO meds at this time. Pt has ST eval this AM. Dilt gtt was continued temporarily and DC at 0530. Pt has slept at intervals and was combative with staff during the night but since has awaken in good mood and is up to the chair. Tolerating it well. (R) facial edema continues. Pt tolerated massage to face better this AM. Suctioning done with no drainage. Pt is wearing incontinent brief. Has voided. No BM. Call light within reach.
[2022-10-04 06:27] LABS: Chloride 111 mmol/L (98-107); Potassium 3.1 mmoL/L (3.5-5.1); Sodium 143 mmol/L (136-145)
[2022-10-04 06:29] LABS: Blood Urea Nitrogen 13 mg/dl (9-20); Creatinine Clearance Estimated 60 mL/min (50-200); Estimated Glomerular Filt Rate 71 ml/min (>60); GFR (African American) 86 ML/MIN (>60)
[2022-10-04 06:30] LABS: Alanine Aminotransferase 38 U/L (12-78); Albumin Level 2.9 g/dl (3.5-5.0); Albumin/Globulin Ratio 0.9 (1.1-1.8); Alkaline Phosphatase 91 U/L (38-126); Anion Gap 15.1 mEq/L (5-15); Aspartate Amino Transferase 31 U/L (17-59); Carbon Dioxide 20 mmol/L (22.0-30.0); Globulin 3.2 g/dL (1.3-3.2); Glucose 152 mg/dl (74-100); Total Protein,Serum 6.1 g/dl (6.3-8.2)
[2022-10-04 06:34] LABS: Basophils # 0.1 K/mm3 (0-0.2); Basophils % 0.7 % (0.1-2.0); Eosinophils # 0.3 K/mm3 (0.0-0.4); Eosinophils % 1.5 % (0.1-12.0); Hemoglobin 8.6 g/dL (14.1-18.0); Lymphocytes # 1.3 K/mm3 (0.7-4.5); Lymphocytes % 8.1 % (10-50); Mean Corpuscular HGB Conc 30.8 g/dL (31.8-35.4); Mean Corpuscular Hemoglobin 29.5 pg (27.0-31.2); Mean Corpuscular Volume 95.7 fl (80-94); Mean Platelet Volume 9.2 fl (7.4-10.4); Monocytes # 0.5 K/mm3 (0.1-1.0); Monocytes % 2.8 % (1.7-9.3); Neutrophils % 86.8 % (37.0-80.0); Platelet Count 489 K/mm3 (142-424); Red Blood Count 2.92 M/mm3 (4.60-6.20); White Blood Count 16.1 K/mm3 (4.8-10.8)
[2022-10-04 06:36] LABS: MANUAL DIFFERENTIAL MANUAL DIFFERENTIAL (MANUAL DIFF)
[2022-10-04 07:06] LABS: Magnesium 1.8 mg/dl (1.6-2.3); Phosphorous 2.6 mg/dl (2.5-4.5)
--- NOTE | 2022-10-04 08:40 | DIET.NUTRFU ---
Addendum entered by Christina Nunez RD, LD 10/04/22 16:07: Spoke to speech who will continue to follow patient during stay and feels his swallowing function will improve as facial swelling improves. He was on a regular consistency prior to this hospital stay Addendum entered by Christina Nunez RD, LD 10/04/22 15:32: family has been present to help with meal assistance and the diet recommendations were reviewed with them Addendum entered by Christina Nunez RD, LD 10/04/22 12:59: YARD ASSISTANT completed bedside eval, recommendations for oral diet were MSOFT, nectar with sauces and gravies. No straws, alternate sips and bites and complete a puree wash with applesauce every couple bites. Patient m`ay need assistance to give verbal cues to alternate sips and bites and complete the puree wash with applesauce. Notified provider of no BM noted since admit. Will monitor po intake to determine if additional supplements are needed Original Note: Patient was extubated 10/03, YARD ASSISTANT eval ordered for today to determine safe oral diet. No bolus IV in place. Labs reviewed: Na 143, K 3.1L, BUN 13, Cr 1.0 and glucose 152H. No BM noted, will review with provider.
[2022-10-04 09:28] LABS: Lymphocytes % 13 % (10-50); Monocytes % 2 % (2-9); Neutrophils % 85 % (42-76); Total Cells Counted 100
[2022-10-04 09:29] LABS: Ovalocytes 1+; Platelet Estimate Slight Increase
--- NOTE | 2022-10-04 09:40 | EXP.PULM.PN ---
Subjective *Date: 10/04/22 *Time: 12:35 Interval history: No acute respiratory events overnight. Continues to remain on room air. Pulmonology Exam Inpatient Vital signs and Labs for Last 24 Hours: Temp Pulse Resp BP Pulse Ox FiO2 98.0 F 83 16 126/59 L 100 30 10/04/22 04:00 10/04/22 06:00 10/04/22 06:00 10/04/22 06:00 10/04/22 06:00 10/03/22 07:40 Laboratory Results - last 24 hr 10/03/22 13:03: POC Glucose 155 H 10/03/22 21:08: POC Glucose 141 H 10/04/22 05:40: POC Glucose 149 H 10/04/22 05:55: Phosphorus 2.6, Magnesium 1.8 10/04/22 05:55: WBC 16.1 H D, RBC 2.92 L, Hgb 8.6 L, Hct 28.0 L, MCV 95.7 H, MCH 29.5, MCHC 30.8 L, RDW 21.0 H, Plt Count 489 H, MPV 9.2, Neut % (Auto) 86.8 H, Lymph % (Auto) 8.1 L, [place] % (Auto) 2.8, Eos % (Auto) 1.5, Baso % (Auto) 0.7, Neut # (Auto) 14.0 H, Lymph # (Auto) 1.3, [place] # (Auto) 0.5, Eos # (Auto) 0.3, Baso # (Auto) 0.1, Total Counted 100, Neutrophils % (Manual) 85 H, Lymphocytes % (Manual) 13, Monocytes % (Manual) 2, Platelet Estimate Slight increase, Ovalocytes 1+ 10/04/22 05:55: Sodium 143, Potassium 3.1 L, Chloride 111 H, Carbon Dioxide 20 L, Anion Gap 15.1 H, BUN 13, Creatinine 1.00, Estimated Creat Clear 60, Estimated GFR 71, Est GFR ( Amer) 86, Glucose 152 H, Calcium 8.0 L, Total Bilirubin 1.0, AST 31, ALT 38, Alkaline Phosphatase 91, Total Protein 6.1 L, Albumin 2.9 L, Globulin 3.2, Albumin/Globulin Ratio 0.9 L I & O for Labs for Last 24 Hours: Intake & Output 10/01/22 10/02/22 10/03/22 10/04/22 23:59 23:59 23:59 23:59 Intake Total 979 / 1005 1004 / 1040 432 / 432 Output Total 1870 / 1930 1830 / 1955 1355 / 1355 Balance -891 / -925 -826 / -915 -923 / -923 Weight 164 lb 7.085 oz 165 lb 2.02 oz 165 lb 12.602 oz 166 lb 10.711 oz Microbiology Reports for the Last 24 Hours: Microbiology 09/30/22 12:46 Sputum - Endotracheal Tube Aspirate Gram Stain - Final 09/30/22 12:46 Sputum - Endotracheal Tube Aspirate Sputum Culture - Preliminary Gram Positive Cocci 10/01/22 10:09 Mouth - Abscess Gram Stain - Final 10/01/22 10:09 Mouth - Abscess Abscess Culture - Final Staphylococcus aureus Constitutional: Present moderate distress Comment:: Intubated and Sedated Eyes: Present other (Periorbital swelling) ENT: Absent normal exam Comment:: Right-sided face and neck swelling Neck: Present trachea midline; Absent normal inspection Respiratory: Present normal respiratory effort; Absent prolonged expiratory phase, respiratory distress, rhonchi or wheezes Cardiac: Present S1/S2 and Tachycardia GI: Present soft; Absent distention or tenderness Skin: Present intact; Absent cyanosis Neuro: Present alert and awake; Absent oriented x 3 Comment:: Intubated and sedated Extremities: Present normal inspection; Absent clubbing or cyanosis Psychiatric: Present unable to assess Assessment and Plan *Assessment and plan (1) COVID-19: Status: Acute Category: Medical Code(s): U07.1 - COVID-19 Plan 81-year-old male recently admitted to the hospital after left heart cath and stenting. Also had a pericardial effusion drained. Patient was also diagnosed with COVID-19 during his recent hospital admission, needing increasing oxygen requirements. Denies any prior use of oxygen As per patient's family. He presented to the hospital complaining of worsening mentation along with right-sided neck and facial swelling and was admitted to the hospital being treated for acute parotitis with Unasyn, his swelling and clinical condition gradually deteriorated eventually concerning for airway compramise, plan was made to intubate and pulmonary was called for further management. CT, diffuse cellulitis worsenign fro Status postm prior.A long with acute parotitis involving the right masseter muscle. Patient swelling eventually improved and was extubated to room air on 10/03/2022. Patient has been tolerating well on room a
--- NOTE | 2022-10-04 10:18 | CT_ITS ---
FINAL REPORT TECHNIQUE: Thin section axial CT images with coronal and sagittal reformats were performed through the neck. This study was performed with techniques to keep radiation doses as low as reasonably achievable (ALARA). Individualized dose reduction techniques using automated exposure control or adjustment of mA and/or kV according to the patient's size were employed. CLINICAL HISTORY: Swelling, possible abscess COMPARISON: September 30, 2022 FINDINGS: The nasopharynx, oropharynx, hypopharynx and larynx are unremarkable. The thyroid is unremarkable. There is mild mucosal thickening in the maxillary sinuses. There are several chronic calcifications in the tonsillar pillars which are likely post inflammatory. There are persistent inflammatory changes involving the right side of the neck. There is significant enlargement and stranding of the right parotid gland that is somewhat worse and consistent with worsening right parotitis. The inflammatory changes extend to the right masseter muscle. There are also inflammatory changes of the right submandibular gland. The subcutaneous edema/inflammation of the more inferior right neck is partially improved. IMPRESSION: Worsening right parotits with secondary extension to the right masseter muscle. Partially improved edema/inflammation of the more inferior right neck. No new fluid collection to suggest an abscess. Reviewed, Interpreted and Dictated by Keyon Harrington III, MD Transcribed by Eliane Otero Authenticated and [facility]
--- NOTE | 2022-10-04 12:07 | HMH.SLDYSPHA ---
Speech & Language Evaluation Speech/Language Dysphagia Evaluation Start: 10/04/22 11:43 Freq: ONCE Status: Active Protocol: Document 10/04/22 11:43 ISAEL (Rec: 10/04/22 12:06 [email or web address] [id number]) Dysphagia Assess/Goals/Plan Assessment Date of Evaluation: 10/04/22 Evaluation Type Initial Certification Assessment/Problems Pt assessed using clinical bedside swallow evaluation 2' post extubation per MD order. Does Patient Qualify for Service Yes Qualify/Failure Comment HOB MACHINE OPERATOR will f/u with pt for diet tolerance 2' diet recommendation changes. Recommendations PHYSICIAN CERTIFICATION: The specified therapy services are required, authorized, and reviewed every 30 days. Pt will be seen # times/week 1 for # weeks 1 Diet Recommendations Mechanical Soft Liquid Type Recommendations Shaniko Consistency SL Swallow Guidelines Alt bite w/sip thru meal, Standard Aspiration Prec., Crush meds as allowed* Crush Meds Crush all meds Dysphagia Swallow Precautions/Strategies Sitting Upright (90 deg), Double Swallow,No Straw,Small Bites and Sips,Alternate Liquids/Solids Comment Mechanical soft ground with extra sauces and gravys--puree wash with spoonful of applesauce after every few bites. Plan Anticipate reaching STG in # weeks 1 Anticipate reaching LTG in # weeks 1 Pt/Guardian verbally ack understanding Yes of dx/prognosis/goals G -code Required No STG-Other Comment/Non-Specific Pt will exhibit diet tolerance with 100% accuracy based on clinical observation and nursing report. Retirement Goals Diet mech. soft ground w/ extra sauces and gravys and puree wash with applesauce with Liquids Shaniko Thick Education Instructions provided Discussed risks of aspiration, diet recommendations, compensatory strategies, and results of CSE with family, pt , nursing, and care management all of which expressed understanding. Pt/Caregiver able to recall information Able to recall/restate Reinforcement needed No Speech & Language HPI H
--- NOTE | 2022-10-04 12:39 | EXP.CARD.PN ---
Subjective Subjective Date: 10/04/22 Time: 09:30 Principal diagnosis: afib with RVR Interval history: This is an 81-year-old white gentleman who was admitted with parotitis and ultimately ended up intubated and on mechanical ventilation due to the edema in the right side of his face from the infection. The patient was successfully extubated yesterday. He still has some edema to the right side of his face. He went into atrial fibrillation with RVR overnight last night. The patient converted with a Cardizem drip which has been stopped. He remains in sinus rhythm this morning. The patient has been very aggressive and agitated since being extubated. He has been very noncompliant with staff and aggressive at times. During my examination however, the patient is very pleasant. He does try to answer all of my questions. He denies any chest pain or pressure. He denies any shortness of breath or edema. He appears to be in no distress. He remains in sinus rhythm this morning. Exam Data for Last 24 hours Vital signs and Labs for Last 24 Hours: Temp Pulse Resp BP Pulse Ox FiO2 98.8 F 89 20 121/82 100 30 10/04/22 08:00 10/04/22 10:00 10/04/22 10:00 10/04/22 10:00 10/04/22 10:00 10/03/22 07:40 Laboratory Results - last 24 hr 10/03/22 13:03: POC Glucose 155 H 10/03/22 21:08: POC Glucose 141 H 10/04/22 05:40: POC Glucose 149 H 10/04/22 05:55: Phosphorus 2.6, Magnesium 1.8 10/04/22 05:55: WBC 16.1 H D, RBC 2.92 L, Hgb 8.6 L, Hct 28.0 L, MCV 95.7 H, MCH 29.5, MCHC 30.8 L, RDW 21.0 H, Plt Count 489 H, MPV 9.2, Neut % (Auto) 86.8 H, Lymph % (Auto) 8.1 L, [place] % (Auto) 2.8, Eos % (Auto) 1.5, Baso % (Auto) 0.7, Neut # (Auto) 14.0 H, Lymph # (Auto) 1.3, [place] # (Auto) 0.5, Eos # (Auto) 0.3, Baso # (Auto) 0.1, Total Counted 100, Neutrophils % (Manual) 85 H, Lymphocytes % (Manual) 13, Monocytes % (Manual) 2, Platelet Estimate Slight increase, Ovalocytes 1+ 10/04/22 05:55: Sodium 143, Potassium 3.1 L, Chloride 111 H, Carbon Dioxide 20 L, Anion Gap 15.1 H, BUN 13, Creatinine 1.00, Estimated Creat Clear 60, Estimated GFR 71, Est GFR ( Amer) 86, Glucose 152 H, Calcium 8.0 L, Total Bilirubin 1.0, AST 31, ALT 38, Alkaline Phosphatase 91, Total Protein 6.1 L, Albumin 2.9 L, Globulin 3.2, Albumin/Globulin Ratio 0.9 L I & O for Last 24 hours: Intake & Output 10/01/22 10/02/22 10/03/22 10/04/22 23:59 23:59 23:59 23:59 Intake Total 979 / 1005 1004 / 1040 432 / 432 Output Total 1870 / 1930 1830 / 1955 1355 / 1355 350 / 350 Balance -891 / -925 -826 / -915 -923 / -923 -350 / -350 Weight 164 lb 7.085 oz 165 lb 2.02 oz 165 lb 12.602 oz 166 lb 10.711 oz Microbiology Reports for the Last 24 Hours: Microbiology 09/30/22 12:46 Sputum - Endotracheal Tube Aspirate Gram Stain - Final 09/30/22 12:46 Sputum - Endotracheal Tube Aspirate Sputum Culture - Final Staphylococcus aureus 10/01/22 10:09 Mouth - Abscess Gram Stain - Final 10/01/22 10:09 Mouth - Abscess Abscess Culture - Final Staphylococcus aureus Narrative: Telemetry strip is sinus rhythm with a rate in the 80s. Constitutional Constitutional: no acute distress, average body habitus and chronically ill appearing *Routine HEENT Exam Head: Present normocephalic and atraumatic ENT: Present mucous membranes moist *Routine Neck Exam Neck: Present supple, full ROM and normal carotid upstroke; Absent JVD, carotid bruit or lymphadenopathy *Routine Respiratory Exam Respiratory: Present patient mechanically ventilated, CTA bilaterally and symmetric chest movement *Routine Cardiovascular Exam Cardiovascular: Present RRR, Normal S1 and Normal S2; Absent murmur or gallop *Routine Abdominal Exam Abdominal: Present soft and normoactive bowel sounds; Absent distended or organomegaly *Routine Extremities Exam Extremities: Present full ROM, pulses intact and normal capillary refill; Absent cyanosis, clubbing or edema *Routine Skin Exa
[2022-10-04 17:06] LABS: POC Glucose,Bedside 184 (70-110)
--- NOTE | 2022-10-04 19:33 | PC.NURSE ---
pt has been aggressive at times, was less aggressive when family was at bedside, has remained on room air, tolerated diet, bed alarm on
--- NOTE | 2022-10-04 20:28 | EXP.ACUTE.PN ---
Subjective *Date: 10/04/22 *Time: 20:28 Interval history: No acute events overnight. Pleasantly confused on exam this morning. Cooperative. Hard of hearing. Remains afebrile. Swelling stable in face. No nausea, vomiting, shortness of breath or chest pain. Hemodynamically stable. No family at bedside this Medical Exam Vital signs and Labs for Last 24 Hours: Vital Signs Temp Pulse Pulse Resp BP Pulse Ox 10/04/22 16:00 97.8 F 95 H 20 147/70 H 95 10/04/22 16:00 90 10/04/22 12:00 80 10/04/22 08:00 90 10/04/22 12:00 98.6 F 83 22 130/65 98 10/04/22 08:00 89 100 10/04/22 10:00 89 20 121/82 100 10/04/22 08:00 89 18 126/54 L 100 10/04/22 08:00 98.8 F 10/04/22 04:00 98.0 F 10/04/22 06:00 83 16 126/59 L 100 10/04/22 04:00 95 H 17 124/67 96 10/04/22 04:00 90 10/04/22 00:00 100 H 10/04/22 00:00 98.0 F 10/04/22 02:00 99 H 138/65 96 10/04/22 00:00 139 H 19 155/65 H 97 10/03/22 22:00 109 H 19 148/79 H 100 Intake and Output 10/04/22 10/04/22 10/04/22 07:59 15:59 23:59 Intake Total 400 / 400 Output Total 350 / 350 Balance -350 / 50 400 / 50 Intake: Intake, Total IV Amount 400 / 400 Cefepime HCl 2 gm In 0.9 % 100 / 100 Sodium Chloride 100 ml @ 200 mls/hr IV Q12H TRELL Rx#:[id number] Vancomycin/Water For Inj (Peg) 300 / 300 1.5 gm In 300 ml @ 150 mls/hr IV Q24H TRELL Rx#:[id number] Output: Output, Urine Amount 350 / 350 Other: Number of Unmeasured Voids 1 Weight 75.6 kg Patient Weight 10/04/22 23:59 Weight 75.6 kg Laboratory Results - last 24 hr 10/03/22 21:08: POC Glucose 141 H 10/04/22 05:40: POC Glucose 149 H 10/04/22 05:55: Phosphorus 2.6, Magnesium 1.8 10/04/22 05:55: WBC 16.1 H D, RBC 2.92 L, Hgb 8.6 L, Hct 28.0 L, MCV 95.7 H, MCH 29.5, MCHC 30.8 L, RDW 21.0 H, Plt Count 489 H, MPV 9.2, Neut % (Auto) 86.8 H, Lymph % (Auto) 8.1 L, [place] % (Auto) 2.8, Eos % (Auto) 1.5, Baso % (Auto) 0.7, Neut # (Auto) 14.0 H, Lymph # (Auto) 1.3, [place] # (Auto) 0.5, Eos # (Auto) 0.3, Baso # (Auto) 0.1, Total Counted 100, Neutrophils % (Manual) 85 H, Lymphocytes % (Manual) 13, Monocytes % (Manual) 2, Platelet Estimate Slight increase, Ovalocytes 1+ 10/04/22 05:55: Sodium 143, Potassium 3.1 L, Chloride 111 H, Carbon Dioxide 20 L, Anion Gap 15.1 H, BUN 13, Creatinine 1.00, Estimated Creat Clear 60, Estimated GFR 71, Est GFR ( Amer) 86, Glucose 152 H, Calcium 8.0 L, Total Bilirubin 1.0, AST 31, ALT 38, Alkaline Phosphatase 91, Total Protein 6.1 L, Albumin 2.9 L, Globulin 3.2, Albumin/Globulin Ratio 0.9 L 10/04/22 17:00: POC Glucose 184 H I & O for Labs for Last 24 Hours: Intake & Output 10/01/22 10/02/22 10/03/22 10/04/22 23:59 23:59 23:59 23:59 Intake Total 979 / 1005 1004 / 1040 432 / 432 400 / 400 Output Total 1870 / 1930 1830 / 1955 1355 / 1355 350 / 350 Balance -891 / -925 -826 / -915 -923 / -923 50 / 50 Weight 74.59 kg 74.9 kg 75.2 kg 75.6 kg Microbiology Reports for the Last 24 Hours: Microbiology 09/30/22 12:46 Sputum - Endotracheal Tube Aspirate Gram Stain - Final 09/30/22 12:46 Sputum - Endotracheal Tube Aspirate Sputum Culture - Final Staphylococcus aureus Constitutional: Present no acute distress, average body habitus, chronically ill appearing and cooperative Head: Present atraumatic Comment:: stable dense swelling of right side of face, no periorbital edema Neck: Present normal inspection and trachea midline Respiratory: Present normal respiratory effort; Absent accessory muscle use, rhonchi, wheezes or crackles Cardiac: Present Reg Rate and Rhythm; Absent No Murmur GI: Present soft and normal bowel sounds; Absent distention or tenderness Extremities: Present normal inspection and full ROM Skin: Present intact; Absent erythema Neuro: Present alert, awake and moves all extremities Comment:
[2022-10-04 21:21] LABS: POC Glucose,Bedside 212 (70-110)
[2022-10-05] VITALS: BP 141/69; PULSE 89; PULSE 97; RESP 18; TEMP 37.1; O2SAT 99
[2022-10-05 04:00] VITALS: BP 150/79; PULSE 91; PULSE 94; RESP 18; TEMP 36.5; O2SAT 96; BMI 23.9
[2022-10-05 06:35] LABS: POC Glucose,Bedside 175 (70-110)
[2022-10-05 08:00] VITALS: BP 147/70; PULSE 109; RESP 18; TEMP 37.7; O2SAT 95
[2022-10-05 08:03] LABS: Basophils # 0.1 K/mm3 (0-0.2); Basophils % 0.7 % (0.1-2.0); Eosinophils # 0.5 K/mm3 (0.0-0.4); Eosinophils % 4.6 % (0.1-12.0); Lymphocytes # 1.1 K/mm3 (0.7-4.5); Lymphocytes % 11.2 % (10-50); Mean Corpuscular HGB Conc 32.1 g/dL (31.8-35.4); Mean Corpuscular Hemoglobin 29.2 pg (27.0-31.2); Mean Platelet Volume 9.1 fl (7.4-10.4); Monocytes # 0.4 K/mm3 (0.1-1.0); Monocytes % 3.8 % (1.7-9.3); Neutrophils % 79.9 % (37.0-80.0); Platelet Count 446 K/mm3 (142-424); Red Blood Count 2.75 M/mm3 (4.60-6.20); Red Cell Distribution Width 20.6 % (11.5-17.5)
[2022-10-05 08:08] LABS: Chloride 112 mmol/L (98-107); Potassium 3.4 mmoL/L (3.5-5.1); Sodium 141 mmol/L (136-145)
[2022-10-05 08:11] LABS: Alanine Aminotransferase 34 U/L (12-78); Albumin Level 2.8 g/dl (3.5-5.0); Albumin/Globulin Ratio 0.9 (1.1-1.8); Alkaline Phosphatase 81 U/L (38-126); Anion Gap 10.4 mEq/L (5-15); Aspartate Amino Transferase 44 U/L (17-59); Blood Urea Nitrogen 12 mg/dl (9-20); Carbon Dioxide 22 mmol/L (22.0-30.0); Creatinine Clearance Estimated 60 mL/min (50-200); Estimated Glomerular Filt Rate 81 ml/min (>60); GFR (African American) 98 ML/MIN (>60); Globulin 3.1 g/dL (1.3-3.2); Total Protein,Serum 5.9 g/dl (6.3-8.2)
[2022-10-05 08:12] LABS: Glucose 172 mg/dl (74-100)
[2022-10-05 12:00] VITALS: BP 139/78; PULSE 78; RESP 16; TEMP 36.6; O2SAT 93
--- NOTE | 2022-10-05 15:44 | EXP.ACUTE.PN ---
Subjective *Date: 10/05/22 *Time: 15:49 Interval history: No acute events overnight. Pleasantly confused on exam this morning. Cooperative. Hard of hearing. Remains afebrile. Swelling stable to slightly improved in face. No nausea, vomiting, shortness of breath or chest pain. Hemodynamically stable. Answering basic questions this morning. Family at bedside, updated of plan. Medical Exam Vital signs and Labs for Last 24 Hours: Vital Signs Temp Pulse Pulse Resp BP Pulse Ox 10/05/22 08:00 109 H 10/05/22 08:00 109 H 95 10/05/22 08:00 99.8 F H 109 H 18 147/70 H 95 10/05/22 04:00 91 H 10/05/22 04:00 97.7 F 94 H 18 150/79 H 96 10/05/22 00:00 97 H 10/04/22 20:00 95 H 10/05/22 00:00 98.8 F 89 18 141/69 H 99 10/04/22 20:00 98.0 F 93 H 20 140/61 98 10/04/22 16:00 97.8 F 95 H 20 147/70 H 95 10/04/22 16:00 90 Intake and Output 10/04/22 10/05/22 10/05/22 23:59 07:59 15:59 Intake Total 400 / 400 100 / 580 480 / 580 Output Total 700 / 1050 0 / 0 Balance -300 / -650 100 / 580 480 / 580 Intake: Intake, Oral Amount 480 / 480 Intake, Total IV Amount 400 / 400 100 / 100 Cefepime HCl 2 gm In 0.9 % 100 / 100 100 / 100 Sodium Chloride 100 ml @ 200 mls/hr IV Q12H TRELL Rx#:[id number] Vancomycin/Water For Inj (Peg) 300 / 300 1.5 gm In 300 ml @ 150 mls/hr IV Q24H TRELL Rx#:[id number] Output: Output, Urine Amount 700 / 1050 0 / 0 Other: Number of Voids 0 Weight 75.8 kg Patient Weight 10/05/22 23:59 Weight 75.8 kg Laboratory Results - last 24 hr 10/04/22 17:00: POC Glucose 184 H 10/04/22 21:07: POC Glucose 212 H 10/05/22 06:25: POC Glucose 175 H 10/05/22 07:28: WBC 10.0 D, RBC 2.75 L, Hgb 8.0 L, Hct 25.0 L, MCV 91.0, MCH 29.2, MCHC 32.1, RDW 20.6 H, Plt Count 446 H, MPV 9.1, Neut % (Auto) 79.9, Lymph % (Auto) 11.2, [place] % (Auto) 3.8, Eos % (Auto) 4.6, Baso % (Auto) 0.7, Neut # (Auto) 8.0 H, Lymph # (Auto) 1.1, [place] # (Auto) 0.4, Eos # (Auto) 0.5 H, Baso # (Auto) 0.1 10/05/22 07:28: Sodium 141, Potassium 3.4 L, Chloride 112 H, Carbon Dioxide 22, Anion Gap 10.4, BUN 12, Creatinine 0.90, Estimated Creat Clear 60, Estimated GFR 81, Est GFR ( Amer) 98, Glucose 172 H, Calcium 8.0 L, Total Bilirubin 1.0, AST 44 D, ALT 34, Alkaline Phosphatase 81, Total Protein 5.9 L, Albumin 2.8 L, Globulin 3.1, Albumin/Globulin Ratio 0.9 L I & O for Labs for Last 24 Hours: Intake & Output 10/02/22 10/03/22 10/04/22 10/05/22 23:59 23:59 23:59 23:59 Intake Total 1004 / 1040 432 / 432 400 / 400 580 / 580 Output Total 1830 / 1955 1355 / 1355 1050 / 1050 0 / 0 Balance -826 / -915 -923 / -923 -650 / -650 580 / 580 Weight 74.9 kg 75.2 kg 75.6 kg 75.8 kg Microbiology Reports for the Last 24 Hours: Microbiology 09/30/22 00:15 Blood Blood Culture - Final NO GROWTH AFTER 5 DAYS 09/30/22 00:15 Blood Blood Culture - Final NO GROWTH AFTER 5 DAYS Constitutional: Present no acute distress, average body habitus, chronically ill appearing and cooperative Head: Present atraumatic Comment:: marginal improvement in dense swelling of right side of face, no periorbital edema Neck: Present normal inspection and trachea midline Respiratory: Present normal respiratory effort; Absent accessory muscle use, rhonchi, wheezes or crackles Cardiac: Present Reg Rate and Rhythm; Absent No Murmur GI: Present soft and normal bowel sounds; Absent distention or tenderness Extremities: Present normal inspection and full ROM Skin: Present intact; Absent erythema Neuro: Present alert, awake and moves all extremities Comment:: Spontaneous movement of extremities; oriented to self, wanting to go home Assessment and Plan *Assessment and plan (1) Acute parotitis: Status: Acute Category: Medical Code(s): K11.21 - Acute sialoadenitis (2) CAD (coronary ar
[2022-10-05 15:58] VITALS: BP 144/59; PULSE 88; RESP 16; TEMP 36.5; O2SAT 94
[2022-10-05 16:50] LABS: POC Glucose,Bedside 211 (70-110)
--- NOTE | 2022-10-05 19:44 | PC.NURSE ---
pt has been restless this shift, has attempted to get up on own several times, bed alarm on for safety, pull alarm on while in chair, has remained on room air, telemetry taken off this shift per Dr. Molina
[2022-10-05 20:00] VITALS: BP 160/78; PULSE 93; RESP 20; TEMP 36.8; O2SAT 97
[2022-10-05 21:28] LABS: POC Glucose,Bedside 213 (70-110)
--- NOTE | 2022-10-05 23:10 | PC.NURSE ---
He has not been able to answer any orientation questions. He is confused and continues to try and get out of bed. He has to be frequently redirected and staff has been sitting in his room. FSBS at was 213. Right facial swelling present. He took his medications crushed in applesauce. He continues in contact precautions r/t MRSA.
[2022-10-06] VITALS: BP 153/76; PULSE 88; RESP 20; TEMP 36.7; O2SAT 96
[2022-10-06 04:00] VITALS: BMI 23.8
[2022-10-06 06:56] LABS: POC Glucose,Bedside 177 (70-110)
[2022-10-06 07:30] VITALS: O2SAT 98
[2022-10-06 07:51] LABS: Alanine Aminotransferase 29 U/L (12-78); Albumin Level 2.8 g/dl (3.5-5.0); Albumin/Globulin Ratio 0.9 (1.1-1.8); Alkaline Phosphatase 75 U/L (38-126); Aspartate Amino Transferase 34 U/L (17-59); Bilirubin,Total 0.6 mg/dl (0.2-1.3); Blood Urea Nitrogen 11 mg/dl (9-20); Calcium 7.8 mg/dl (8.4-10.2); Carbon Dioxide 23 mmol/L (22.0-30.0); Chloride 113 mmol/L (98-107); Creatinine Clearance Estimated 60 mL/min (50-200); Estimated Glomerular Filt Rate 71 ml/min (>60); GFR (African American) 86 ML/MIN (>60); Globulin 3.2 g/dL (1.3-3.2); Glucose 174 mg/dl (74-100); Sodium 142 mmol/L (136-145)
[2022-10-06 08:00] VITALS: BP 126/67; PULSE 89; RESP 16; TEMP 36.8; O2SAT 96
--- NOTE | 2022-10-06 08:21 | PC.NURSE ---
heart monitor off patient. i was told they d/c'd monitor
[2022-10-06 08:24] LABS: Basophils % 0.2 % (0.1-2.0); Eosinophils # 0.2 K/mm3 (0.0-0.4); Eosinophils % 1.8 % (0.1-12.0); Hematocrit 26.2 % (42.0-52.0); Hemoglobin 7.9 g/dL (14.1-18.0); Lymphocytes % 11.2 % (10-50); Mean Corpuscular HGB Conc 30.2 g/dL (31.8-35.4); Mean Corpuscular Hemoglobin 28.3 pg (27.0-31.2); Mean Corpuscular Volume 93.7 fl (80-94); Mean Platelet Volume 8.9 fl (7.4-10.4); Monocytes # 0.5 K/mm3 (0.1-1.0); Monocytes % 5.3 % (1.7-9.3); Neutrophils # 7.2 K/mm3 (1.8-7.8); Neutrophils % 81.4 % (37.0-80.0); Platelet Count 390 K/mm3 (142-424); Red Cell Distribution Width 19.5 % (11.5-17.5); White Blood Count 8.9 K/mm3 (4.8-10.8)
--- NOTE | 2022-10-06 11:28 | EXP.DC.SUM ---
General Admission date:: 09/30/22 Discharge date: 10/07/22 HPI HPI HPI: c/o for right parotitis and cellulitis. Was brought into the emergency room for progressive swelling couple days ago. He was placed on broad-spectrum antibiotics after CT scan was concerning for facial cellulitis and parotitis. He ultimately was intubated with concerns that the swelling was going to compromise his airway. Per nursing report over the last 24 hours the swelling has improved significantly. He is intubated so history otherwise obtained from nursing staff at bedside in the medical records Exam: NAD, intubated right facial swelling, edema present purulance expressed from right melany's duct - cultured left EAC clear, TM WNL right EAC with small amount of blood, able to see partially around to see TM which appears WNL, minimal EAC swelling itself Hospital Course Hospital Course Hospital Course: 81-year-old man admitted with acute parotitis.? Necessitated intubation for impending respiratory failure and swelling.? Showing clinical improvement in swelling this morning.? ENT consulted, appreciate their recommendations.? ? Problems addressed as follows: //Acute parotiditis //Preseptal cellulitis secondary to above -Presented with significant swelling of right side of face. Swelling progressed rapidly necessitating intubation to stabilize airway. Initiated on broad-spectrum antibiotics. ENT was consulted and cultures obtained from salivary ducts. Positive for MRSA. Continued IV antibiotics including vancomycin until patient tolerating p.o. intake. Was extubated with difficulty given patient's dementia and confusion. Gradually showed improvement in mentation during hospitalization. Swelling has gradually improved and patient is tolerating oral intake, medications, nutrition. Repeat CT obtained after extubation showing no abscess formation. Transitioned to Bactrim when appropriate. Plan to complete 14-day antibiotic course for treatment of his MRSA parotiditis. Speech consulted, initially had some modifications to his diet based on difficulty opening his mouth, resumed regular diet as swelling improved. Recommend follow-up with his PCP in 1 to 2 weeks for reevaluation. No indication of follow-up with ENT at this time. //Dementia -Complicated his ability to extubate. Has returned to baseline function per family prior to discharge. //Tobacco use disorder -Nicotine replacement patch //CAD s/p PCI LAD amd RCA //Pericardial effusion //Paroxysmal A. fib -Recent admission for coronary artery disease and stenting. Patient's Plavix and aspirin were continued per tube while intubated, able to tolerate oral medication without gaps in his treatment. Developed A. fib with RVR during acute illness phase. Improved with metoprolol. Initiated on amiodarone, continue 200 mg daily. Will benefit from outpatient cardiology follow-up. Cardiology consulted during admission. No further A. fib after converting back to sinus rhythm. Patient also found to be anemic. Given gradual decrease in hemoglobin, met criteria for transfusion with hemoglobin less than 9. Transfused 1 unit of blood prior to discharge home. Difficulty crossmatching due to antibodies. Patient would benefit from home health PT. Discharged home with family. Provided with a Rollator and bedside commode. Exam Data for Last 24 hours Vital signs and Labs for Last 24 Hours: Temp Pulse Resp BP Pulse Ox FiO2 98.3 F 89 16 126/67 96 30 10/06/22 08:00 10/06/22 08:00 10/06/22 08:00 10/06/22 08:00 10/06/22 08:00 10/03/22 07:40 Laboratory Results - last 24 hr 10/05/22 16:25: POC Glucose 211 H 10/05/22 21:04: POC Glucose 213 H 10/06/22 06:49: POC Glucose 177 H 10/06/22 07:19: WBC 8.9, RBC 2.80 L, Hgb 7.9 L, Hct 26.2 L, MCV 93.7, MCH 28.3, MCHC 30.2 L, RDW 19.5 H, Plt Count 390, MPV 8.9, Neut % (Auto) 81.4 H, Lymph % (Auto) 11.2, [place] % (Auto) 5.3, Eos % (Auto) 1.8, Baso % (Auto)
[2022-10-06 12:00] VITALS: BP 133/61; PULSE 86; RESP 18; TEMP 36.8; O2SAT 93
--- NOTE | 2022-10-06 15:03 | HMH.PTEV ---
Physical Therapy Evaluation Rehab PT IP Evaluation Start: 10/05/22 12:33 Freq: ONCE Status: Active Protocol: Document 10/06/22 14:52 GEOFF (Rec: 10/06/22 15:03 GEOFF [id number]) Subjective/History History History Patient is an 81 year old male admitted to [facility] 09/30/22 secondary to acute parotitis. Patient was previously living at home with spouse and independent with all ADL's per spouse report. Patient unable to verbalize responses secondary to hearing loss. Subjective Subjective Patient caregiver reports that pt is supposed to DC today to home after a blood transfusion. Patient spouse also reports that he has required mod assist x 2 to transfer to chair LOS. Rehab PT IP Eval Objective Appearance Patient Behavior Fatigued,Confused Difficulty following instructions mild Speech Pattern Mumbled Ambulation Patient Able to Ambulate No Balance Ability to Arise Unable Sitting Balance Leans or slides in chair Standing Balance Unsteady Dynamic Sitting Balance Ability Poor Transfers Bed Transfer Ability Moderate x 1 (50% assist) ROM All Extremities PT ROM Status WFL MMT All Extremities PT MMT WFL Rehab PT IP prob,goals,plan Problems Date of Evaluation: 10/06/22 PT IP Problems Bed Mobility,Transfers,Gait, Balance,Self care,Safety Rehab Potential Rehab Potential Fair Equipment Needs Assistive Devices Rolling / Wheeled Walker Plan PT Intervention Plan Bed Mobility,Transfers,Gait, Balance,Self care,Safety, Therapeutic Exercise PT Plan Frequency BID Duration LOS Discharge Goals Bed Transfer Ability Moderate x 1 (50% assist) Ambulation Distance (feet) 10 Discharge Plan PT Discharge Plan Though patient/caregiver intend to DC home today, PT suggest DC to SNF for further rehab once found medically stable by MD. G -code Required Yes Eval Complexity Eval Charge Codes 41045 - High Complexity G Codes PT Current Status
[2022-10-06 16:00] VITALS: BP 126/53; PULSE 78; RESP 16; TEMP 36.9; O2SAT 92
--- NOTE | 2022-10-06 18:39 | EXP.ACUTE.PN ---
Subjective *Date: 10/06/22 *Time: 18:39 Interval history: Mr. Morales is done very well today. Appears more alert and oriented. Requesting to go home. Family at bedside feels that he is closest to baseline he has been since admission. At this time unfortunately he has hemoglobin necessitating transfusion. Has been waiting all day due to antibodies making crossmatch difficult. Tolerating p.o. intake. Stable on room air. Afebrile. Ambulating with assistance to the bathroom. Stable to go home once medically ready. Family comfortable taking him home. Questions answered, updated on progress and plan. Patient denies chest pain, shortness of breath, nausea, vomiting, diarrhea. Medical Exam Vital signs and Labs for Last 24 Hours: Vital Signs Temp Pulse Resp BP Pulse Ox 10/06/22 16:00 98.5 F 78 16 126/53 L 92 L 10/06/22 12:00 98.3 F 86 18 133/61 93 L 10/06/22 08:00 98.3 F 89 16 126/67 96 10/06/22 07:30 98 10/06/22 00:00 98.1 F 88 20 153/76 H 96 10/05/22 20:00 97 10/05/22 20:00 98.3 F 93 H 20 160/78 H 97 Intake and Output 10/06/22 10/06/22 10/06/22 07:59 15:59 23:59 Intake Total 140 / 380 240 / 380 Output Total 800 / 800 Balance 140 / -420 -560 / -420 Intake: Intake, Oral Amount 120 / 360 240 / 360 Intake, Other Amount 20 / 20 Output: Output, Urine Amount 800 / 800 Other: Weight 75.4 kg Patient Weight 10/06/22 23:59 Weight 75.4 kg Laboratory Results - last 24 hr 10/05/22 21:04: POC Glucose 213 H 10/06/22 06:49: POC Glucose 177 H 10/06/22 07:19: WBC 8.9, RBC 2.80 L, Hgb 7.9 L, Hct 26.2 L, MCV 93.7, MCH 28.3, MCHC 30.2 L, RDW 19.5 H, Plt Count 390, MPV 8.9, Neut % (Auto) 81.4 H, Lymph % (Auto) 11.2, [place] % (Auto) 5.3, Eos % (Auto) 1.8, Baso % (Auto) 0.2, Neut # (Auto) 7.2, Lymph # (Auto) 1.0, [place] # (Auto) 0.5, Eos # (Auto) 0.2, Baso # (Auto) 0.0 10/06/22 07:19: Sodium 142, Potassium 3.0 L, Chloride 113 H, Carbon Dioxide 23, Anion Gap 9.0, BUN 11, Creatinine 1.00, Estimated Creat Clear 60, Estimated GFR 71, Est GFR ( Amer) 86, Glucose 174 H, Calcium 7.8 L, Total Bilirubin 0.6, AST 34, ALT 29, Alkaline Phosphatase 75, Total Protein 6.0 L, Albumin 2.8 L, Globulin 3.2, Albumin/Globulin Ratio 0.9 L 10/06/22 09:10: Blood Type A Positive, Antibody Screen Positive, Crossmatch (AHG) See Detail I & O for Labs for Last 24 Hours: Intake & Output 10/03/22 10/04/22 10/05/22 10/06/22 23:59 23:59 23:59 23:59 Intake Total 432 / 432 400 / 400 1300 / 1420 380 / 380 Output Total 1355 / 1355 1050 / 1050 1150 / 1150 800 / 800 Balance -923 / -923 -650 / -650 150 / 270 -420 / -420 Weight 75.2 kg 75.6 kg 75.8 kg 75.4 kg Constitutional: Present no acute distress, average body habitus, chronically ill appearing and cooperative Head: Present atraumatic Comment:: Interval improvement in dense swelling of right side of face, no periorbital edema Neck: Present normal inspection and trachea midline Respiratory: Present normal respiratory effort; Absent accessory muscle use, rhonchi, wheezes or crackles Cardiac: Present Reg Rate and Rhythm; Absent No Murmur GI: Present soft and normal bowel sounds; Absent distention or tenderness Extremities: Present normal inspection and full ROM Skin: Present intact; Absent erythema Neuro: Present alert, awake and moves all extremities Comment:: Spontaneous movement of extremities; oriented to self, wanting to go home Assessment and Plan *Assessment and plan (1) Acute parotitis: Status: Acute Category: Medical Code(s): K11.21 - Acute sialoadenitis (2) CAD (coronary artery disease): Status: Acute Category: Medical Code(s): I25.10 - Atherosclerotic heart disease of [place] coronary artery without angina pectoris (3) Pericardial effusion after operative procedure: Status: Acute Category: Medical Code(s): I97.89 - Other postprocedural complications and disorders of the c
--- NOTE | 2022-10-06 19:03 | PC.NURSE ---
PT AOX4, HAD SHOWER TODAY, SITTING UP TO CHAIR AT THIS TIME. MEDICATED FOR PAIN X2, NEW IV TO LAC
[2022-10-06 20:00] VITALS: BP 134/48; PULSE 77; RESP 17; TEMP 36.8; O2SAT 92
--- NOTE | 2022-10-06 20:29 | PC.NURSE ---
still have not received update on blood availability. pt did ambulate to restroom with standby assist this shift.
--- NOTE | 2022-10-06 23:53 | PC.NURSE ---
Anaya from lab called to tell this RN that pt blood product has arrived to hospital but she is unable to put the blood in their system until career manager can enter the facilty we received the blood from into our system. States career manager will arrive around 0600.
[2022-10-07] VITALS (14 sets, daily range): BP systolic 119–145; BP diastolic 57–75; PULSE 75–88; RESP 16–20; TEMP 36.6–36.8; O2SAT 91–97; BMI 22.9
[2022-10-07 06:14] LABS: Basophils % 0.4 % (0.1-2.0); Eosinophils # 0.1 K/mm3 (0.0-0.4); Eosinophils % 0.7 % (0.1-12.0); Hematocrit 25.7 % (42.0-52.0); Hemoglobin 8.3 g/dL (14.1-18.0); Lymphocytes # 0.8 K/mm3 (0.7-4.5); Lymphocytes % 8.2 % (10-50); Mean Corpuscular HGB Conc 32.4 g/dL (31.8-35.4); Mean Corpuscular Hemoglobin 29.2 pg (27.0-31.2); Mean Corpuscular Volume 90.1 fl (80-94); Mean Platelet Volume 9.9 fl (7.4-10.4); Monocytes # 0.3 K/mm3 (0.1-1.0); Monocytes % 3.1 % (1.7-9.3); Neutrophils % 87.6 % (37.0-80.0); Platelet Count 382 K/mm3 (142-424); Red Blood Count 2.86 M/mm3 (4.60-6.20); Red Cell Distribution Width 20.7 % (11.5-17.5); White Blood Count 10.2 K/mm3 (4.8-10.8)
[2022-10-07 06:17] LABS: Alanine Aminotransferase 26 U/L (12-78); Albumin Level 2.8 g/dl (3.5-5.0); Albumin/Globulin Ratio 0.9 (1.1-1.8); Alkaline Phosphatase 75 U/L (38-126); Anion Gap 8.3 mEq/L (5-15); Aspartate Amino Transferase 31 U/L (17-59); Bilirubin,Total 0.6 mg/dl (0.2-1.3); Blood Urea Nitrogen 13 mg/dl (9-20); Calcium 7.8 mg/dl (8.4-10.2); Carbon Dioxide 25 mmol/L (22.0-30.0); Chloride 111 mmol/L (98-107); Creatinine Clearance Estimated 58 mL/min (50-200); Estimated Glomerular Filt Rate 81 ml/min (>60); GFR (African American) 98 ML/MIN (>60); Globulin 3.2 g/dL (1.3-3.2); Glucose 166 mg/dl (74-100); Potassium 3.3 mmoL/L (3.5-5.1); Sodium 141 mmol/L (136-145)
[2022-10-07 06:18] LABS: MANUAL DIFFERENTIAL MANUAL DIFFERENTIAL (MANUAL DIFF)
[2022-10-07 07:25] LABS: Lymphocytes % 3 % (10-50); Monocytes % 6 % (2-9); Neutrophils % 91 % (42-76); Platelet Estimate Normal; Total Cells Counted 100
[2022-10-07 07:26] LABS: RBC Morphology Normal
--- NOTE | 2022-10-07 11:22 | SW/DCPLANNER ---
Addendum entered by Marlene Montoya 10/07/22 13:30: [facility] stated [facility] can accept this patient. Addendum entered by Marlene Montoya 10/07/22 12:27: [facility] is not able to accept this patient due to staffing. Patient information/order has been faxed to [facility]. Original Note: I called and spoke with this patient's family ( and daughter) regarding plans once medically stable for discharge. Daughter is agreeable to home health services and prefers to use [facility]. Patient information/order has been faxed to [facility]. I will follow up with [facility] once information/order is reviewed. Patient will discharge home today.
[2022-10-07 12:03] LABS: Hemoglobin 9.2 g/dL (14.1-18.0)
--- NOTE | 2022-10-07 12:44 | HMH.OTEV ---
OT Inpatient Evaluation Rehab OT IP Evaluation Start: 10/05/22 12:33 Freq: ONCE Status: Discharge Protocol: Document 10/07/22 12:40 BILLY (Rec: 10/07/22 12:44 CARMENRENETTA [id number]) Rehab OT IP Assessment Subjective History c/o for right parotitis and cellulitis. Was brought into the emergency room for progressive swelling couple days ago. He was placed on broad-spectrum antibiotics after CT scan was concerning for facial cellulitis and parotitis. He ultimately was intubated with concerns that the swelling was going to compromise his airway. Per nursing report over the last 24 hours the swelling has improved significantly. He is intubated so history otherwise obtained from nursing staff at bedside in the medical records. Patient is not a good historian. According to the nurses, Patient lives at home with . assist with patient's ADLs. Subjective I would like to get back in the bed. Assisted Patient to complete a fx'l transfers from recliner from chair->SPT ->EOB requiring Min A. No LOB noted. Patient required Max A for LB drsg and needing verbal cueing for sequencing for safety. Assisted Patient back to bed to supine requiring Min A. Patient is planned to return home with services. Objective Patient Orientation Person,Name Upper Extremity Gross ROM Min Limitation <25% Bed Mobility bed mobility - supine/sit Assist Level Minimal x 1 (25% assist) Transfer Training Sit/Stand/Pivot Transfer Assist Level Minimal x 1 (25% assist) Chair Transfer Ability Minimal x 1 (25% assist) Chair Transfer Technique Sit to/from Ambulatory Chair Transfer Assistive Devices Rolling Walker Lower Body Dressing Ability Maximum Assistance Rehab OT IP prob,goals,plan
== END 2022-10-07 12:14 | disposition home health service (06) | DRG 154 ==
LOC: ER 03:22 → 2ND 04:32
PROVIDERS: Emergency Medicine; Internal Medicine Pulmonary Disease; Nurse Practitioner Family; Admitting Provider Student in an Organized Health Care Education/Training Program; Emergency Provider Emergency Medicine; PCP Internal Medicine Adolescent Medicine; Visit Provider Internal Medicine Adolescent Medicine
DX: K11.21 Acute sialoadenitis (principal); J96.01 Acute respiratory failure with hypoxia; U07.1 COVID-19; L03.213 Periorbital cellulitis; I48.0 Paroxysmal atrial fibrillation; I25.10 Atherosclerotic heart disease of native coronary artery without angina pectoris; D64.9 Anemia, unspecified; E11.9 Type 2 diabetes mellitus without complications; Y95 Nosocomial condition; F03.90 Unspecified dementia, unspecified severity, without behavioral disturbance, psychotic disturbance, mood disturbance, and anxiety
CPT/HCPCS: 31500; 94002; 36415; 70450; 70486; 70490; 70491; 71045; 80048; 80053; 80061; 80202; 81001; 82009; 82150; 82550; 82803; 82962; 83605; 83690; 83735; 84100; 85007; 85014; 85018; 85025; 86850; 86870; 87040; 87070; 87077; 87186; 87205; 92610; 93005; 94003; 94761; 97163; 97165; 97530; 99285; C9803; J2405; J2704; P9016; Q9967; U0003; U0005